=== PATIENT | female | born 1950 | race Caucasian/White ===

== ENCOUNTER 2021-06-15 11:49 | Inpatient (IN) ==
[2021-06-15] MEDS ORDERED: LACTATED RINGERS 1,000 ML IV ONE (12:03)
--- NOTE | 2021-06-15 12:08 | Emergency Department Note ---
Altered Mental Status HPI General Chief Complaint: Altered Mental Status Stated Complaint: alt. mental status Time Seen by Provider: 06/15/21 11:52 Source: patient Mode of arrival: wheelchair Limitations: no limitations History of Present Illness HPI Narrative: Narrative: This is a 71-year-old female who presents emergency department with her daughter who is concerned of altered mental status. Daughter reports that the episodes like this is happened before and that was on April 07, 2021 where she had a negative work-up except for elevated ammonia at that time. Patient is unable to get any history. Daughter reports that she is not alert or oriented. She is unable to know her daughter is in the room and she does not know where she is at. Her last known well was last night before bed. Daughter also reports that these episodes seem to exacerbate when she travels. She recently traveled back up from the [facility] [place] the [place]. Daughter denies any history of recent fevers, vomiting or diarrhea, or history of falls. Related Data Home Medications Medication Instructions Recorded Confirmed pantoprazole 20 mg tablet,delayed 20 mg PO BID tab 11/14/19 06/15/21 release polyethylene glycol 3350 17 17 g PO BID g 05/06/21 06/15/21 gram/dose oral powder (Miralax) rifaximin 550 mg tablet 550 mg PO BID tab 05/06/21 06/15/21 spironolactone 100 mg tablet 100 mg PO QDAY tab 05/06/21 06/15/21 (Aldactone) torsemide 20 mg tablet 20 mg PO QDAY tab 05/06/21 06/15/21 Previous Rx's Medication Instructions Recorded ondansetron 4 mg disintegrating 4 mg PO Q8H PRN #7 tab 03/12/21 tablet Allergies Allergy/AdvReac Type Severity Reaction Status Date / Time hydrocodone AdvReac Severe Nausea Verified 06/15/21 15:53 hydrochlorothiazide AdvReac Intermediate hyponatremi Verified 06/15/21 15:53 a Hydroxychloroquine AdvReac Mild Nausea Verified 06/15/21 15:53 [From Plaquenil] Review of Systems ROS ROS Narrative: Narrative: All systems ED: reviewed and negative except as stated. [facility] Narrative Patient History Narrative: Narrative: Medical/Surgical/Family History All Active Problems (Updated 06/15/21 @ 19:22 by Grady Choe PA-C) Acute hepatic encephalopathy (Acute) Anemia, normocytic normochromic (Acute) Other secondary thrombocytopenia (Acute) Hepatic encephalopathy (Acute) Delirium (Acute) Stage 1 acute kidney injury (Acute) Abdominal pain, RUQ (Chronic) Ascites (Chronic) Cirrhosis of liver (Chronic) Connective tissue disease (Chronic) Elevated serum glutamic pyruvic transaminase (SGPT) level (Chronic) Esophageal varices (Chronic 09/26/13) Gastroesophageal reflux (Chronic) Hernia, hiatal (Chronic) Hypertension, essential, benign (Chronic) Hypothyroidism (Chronic) Osteoarthritis (Chronic) Polyarthropathy, inflammatory (Chronic) Portal hypertension (Chronic) Sjogren's syndrome (Chronic) Splenomegaly (Chronic) Thyroid nodule (Chronic) Vertigo (Chronic) Portal vein thrombosis (Chronic) Urinary tract infection (Chronic) Systemic lupus erythematosus (Chronic) Iron deficiency anemia (Chronic) Edema (Chronic) Insomnia (Chronic) Dysphagia (Chronic) Colonic adenoma (Chronic) Osteoporosis (Chronic) Hemolytic anemia (Chronic) Lower back pain (Chronic) Fatigue (Chronic) Parotid swelling (Chronic) Back pain (Chronic) Sicca syndrome (Chronic) Acquired pancytopenia (Chronic) Hemorrhoid (Chronic) Adenomatous colon polyp (Chronic ~2008) IBS (irritable bowel syndrome) (Chronic) Chronic kidney disease (CKD) stage G3a/A1, moderately decreased glomerular filtration rate (GFR) between 45-59 mL/min/1.73 square meter and albuminuria creatinine ratio less than 30 mg/g (Chronic) Vitamin D deficiency (Chronic) Anemia (Chronic) Confusion (Acute) Medical History Abdominal bloating Abdominal pain, RUQ Acquired pancytopenia Adenomatous colon polyp (~2008) Anemia Ascites H/O (12/11/2014-Karen) Back pain Blood in stool Melenotic Stool (05/08/14-Dr Jones) Body mass index (BMI) 35 or more 37.3 Breast cancer Status post right partial mastectomies, radiation, hormonal therapy Bronchitis (09/25/14) Chronic kidney disease (CKD) stage G3a/A1, moderately decreased glomerular filtration rate (GFR) between 45-59 mL/min/1.73 square meter and albuminuria creatinine ratio less than 30 mg/g Cirrhosis of liver ? autoimmune etiology Colonic adenoma 2008 Confusion Conjunctivitis (09/25/14) OD Conjunctivitis Connective tissue disease Cough Dehydration Dry eyes Dry mouth Dysphagia Edema Elevated liver enzymes Mild Elevated serum glutamic pyruvic transaminase (SGPT) level Encounter for long-term (current) use of high-risk medication Epistaxis Esophageal varices (09/26/13) Esophagitis, reflux Fatigue Gastric erosion (05/27/14-Dr Jones) Gastric polyps Bleeding gastric polyps found on EGD in August 2019 We have not received the pathology report We will request those records Gastritis and gastroduodenitis Gastroesophageal reflux Hand pain Hemolysis Hemolytic anemia Dr. Mendoza, but it looks like she has not seen him for at least a year. We will monitor CBC for stability. Hemorrhoid Hepatic fibrosis Hernia, hiatal History of colonic polyps 2008 ademona History of mammogram (01/25/16) Hypertension, essential, benign Hyponatremia Hypothyroidism IBS (irritable bowel syndrome) Insomnia Iron deficiency anemia Joint pain Leukopenia Lightheaded Hgb 9.6 (12.3) Localized edema due to fluid overload FPC use of drug Benlysta Lower back pain Medication side effect lower extremity edema likely secondary to amlodipine Nasal discharge Daily bloody nasal discharge Nausea & vomiting Night sweats intermittently past 6 months Osteoarthritis Osteoporosis not treated, can't take Fosamax d/t esophageal varices Pancytopenia H/O Parotid swelling Pathological fracture, right humerus, sequela PND (post-nasal drip) Bloody Polyarthropathy, inflammatory Portal hypertension H/o Portal vein thrombosis Resolved and off of Lovenox Reactive airway disease (09/25/14) Rectal bleeding Renal failure Seborrheic keratoses Sutures are removed Sicca syndrome Sicca syndrome with keratoconjunctivitis Sjogren's syndrome Skin lesion Left forearm measuring 5 x 6 mm by calipers. Excised. Splenomegaly Stricture of right ureter right. UVJ. Systemic lupus erythematosus Thrombocytopenia Thyroid nodule 2007 Stable and benign Upper GI bleed Secondary to gastritis UTI (urinary tract infection) Vertigo BPPV Vitamin D deficiency Wrist pain Left Surgical History Fracture, humerus 05/08/15 ORIF History of biopsy (01/23/14) Liver History of X3 History of carpal tunnel release X2 History of cholecystectomy (01/27/14) History of colonoscopy (02/15/17) 01/03/13 - Uncomplicated internal hemorrhoids, few diverticuli. 10/12/15 - hemorrhoids. Dr. Jones. 02/15/17 - Hemorrhoids-7 year follow up. History of endoscopy Variceal Banding Multiple times by Dr. Orozco. History of esophagogastroduodenoscopy (01/06/17) 09/11/19 - Dr. Sunny Story 10/02/14 - Dr. Jones 06/04/15 Dr Jones - esophageal varices were banded. Gastritis. Gastric ulcer. Yeast. 09/04/15 Dr Jones - varices. H. pylori. Gastritis. 01/06/17-Dr. Jones - varices. gastritis. One year F/U. 01/03/18-Dr Jones-gastritis, scarring, small varices, possible esophageal dysmotility. 05/24/18-Dr Jones-upper GI bleed secondary to gastritis. Esophageal varices. Esophagitis. History of hysterectomy MARIA DOLORES/BSO History of knee surgery X5 History of liver biopsy (01/27/14) History of lumpectomy of right breast 2005 And sentinel node biopsy followed by radiation. History of partial mastectomy (~2005) History of right breast biopsy 03/2006 History of surgery Gastric Varices 01/2014, 02/2014, 03/2014, 04/17 Dr. Jones History of thyroid surgery tumor removal History of thyroidectomy (~1979) Status post cataract extraction of both eyes with insertion of intraocular lens Remote Family History Mother Chronic Kidney Disease Unknown Diabetes mellitus Motor vehicle accident Father Family history of arthritis Cardiac disease Essential hypertension Malignant neoplasm Lung cancer Heart disease Type 2 diabetes mellitus Sister Cardiac disease Rheumatic fever Brother Rheumatic fever Cerebrovascular accident Prostate cancer Family/Other Family history of arthritis Rheumatoid arthritis Social History Smoking Status: Never smoker Alcohol Intake Frequency: does not drink Substance Use: does not use Exam Narrative Narrative: Narrative: General Limitations: no limitations General appearance: Present in no apparent distress and other (Patient is somnolent but is arousable. She is able to take a deep breaths and when I asked her to but otherwise does not follow directions very well. ) Head Head: Present atraumatic and normocephalic Respiratory Respiratory: Present normal lung sounds bilaterally and other (No rhonchi rales or wheezes) Cardiovascular Cardiovascular: Present regular rate, normal rhythm and normal heart sounds Adbominal Abdominal: Present other (Abdomen is soft, nontender. There is no rebound tenderness no guarding. Nondistended.) Extremities Extremities: Present other (Negative Homans' sign bilaterally. No calf edema or overlying erythema or ecchymosis) Neurological Neurological: Present alert and other (Patient is not alert and oriented. She does not answer any questions either.) Skin Skin: Present warm (WNL), dry and normal color Course Vital Signs Vital signs: Vital Signs Temperature 98.0 F 06/15/21 11:50 Pulse Rate 77 06/15/21 11:50 Respiratory Rate 18 06/15/21 11:50 Blood Pressure 124/56 06/15/21 11:50 Pulse Oximetry (%) 100 06/15/21 11:50 Temperature 98.0 F 06/15/21 15:54 Pulse Rate 75 06/15/21 18:00 Respiratory Rate 18 06/15/21 18:00 Blood Pressure 144/60 06/15/21 18:00 Pulse Oximetry (%) 100 06/15/21 19:10 [facility] MDM Narrative Medical decision making narrative: Narrative: CBC CMP Troponin proBNP Lactic acid 1.4 Venous blood gas respiratory alkalosis Ammonia 142 CT of the brain without contrast negative for acute normality Portable chest x-ray no acute infiltrates on my read EKG normal sinus rhythm Procalcitonin normal Magnesium Lactated Ringer's started Labs are reviewed and mild bump in bilirubin but her main problem is her ammonia causing acute hepatic encephalopathy other labs reviewed unremarkable Patient will be admitted for further evaluation and treatment. I spoke with the hospitalist who agreed admit the patient for further evaluation and treatment. Lab Data Result diagrams: 06/15/21 12:10 06/15/21 16:13 Labs: Lab Results 06/15/21 06/15/21 06/15/21 Range/Units 12:10 12:10 12:10 WBC 3.3 L (4.5-11.0) K/mcL RBC 3.27 L (3.59-5.38) M/mcL Hgb 10.0 L (11.2-15.7) g/dL Hct 29.9 L (34.1-44.9) % MCV 91.4 (80.0-100.0) fL MCH 30.6 (26.0-34.0) pg MCHC 33.4 (31.0-36.0) g/dL RDW 19.0 H (11.5-14.5) % Plt Count 61 L (140-440) K/mcL MPV 10.5 H (7.4-10.4) fL Neut % (Auto) 71.3 (38.0-78.0) % Lymph % (Auto) 13.9 L (15.5-49.0) % [place] % (Auto) 12.1 H (1.0-12.0) % Eos % (Auto) 1.8 (0.0-7.0) % Baso % (Auto) 0.9 (0.0-2.0) % Lymph # (Auto) 0.46 L (1.50-4.80) K/mcL [place] # (Auto) 0.40 (0.10-0.90) K/mcL Eos # (Auto) 0.06 (0.00-0.70) K/mcL Baso # (Auto) 0.03 (0.00-0.30) K/mcL Absolute Neutrophils 2.35 (1.80-8.00) K/mcL Sodium 138 (133-145) mmol/L Potassium 4.3 (3.3-5.1) mmol/L Chloride 108 (96-108) mmol/L Carbon Dioxide 17 L (22-30) mmol/L Anion Gap 13.0 (8.0-16.0) BUN 20 (8-23) mg/dL Creatinine 1.5 H (0.6-1.1) mg/dL GFR Calculation 35 Glucose 148 H (70-105) mg/dL Calcium 8.4 L (8.6-10.4) mg/dL Magnesium 2.6 H (1.6-2.5) mg/dL Total Bilirubin 1.7 H (0.1-1.0) mg/dL AST 39 H (<32) U/L ALT 20 (<40) U/L Alkaline Phosphatase 134 H (39-117) U/L Ammonia 142 H (11-51) umol/L Troponin T (<0.03) ng/mL Total Protein 6.3 (5.9-8.4) gm/dL Albumin 2.9 L (3.2-5.2) gm/dL Globulin 3.4 (2.2-3.7) gm/dL Albumin/Globulin Ratio 0.9 L (1.0-2.3) Procalcitonin (<0.10) ng/mL 06/15/21 06/15/21 Range/Units 12:10 12:10 WBC (4.5-11.0) K/mcL RBC (3.59-5.38) M/mcL Hgb (11.2-15.7) g/dL Hct (34.1-44.9) % MCV (80.0-100.0) fL MCH (26.0-34.0) pg MCHC (31.0-36.0) g/dL RDW (11.5-14.5) % Plt Count (140-440) K/mcL MPV (7.4-10.4) fL Neut % (Auto) (38.0-78.0) % Lymph % (Auto) (15.5-49.0) % [place] % (Auto) (1.0-12.0) % Eos % (Auto) (0.0-7.0) % Baso % (Auto) (0.0-2.0) % Lymph # (Auto) (1.50-4.80) K/mcL [place] # (Auto) (0.10-0.90) K/mcL Eos # (Auto) (0.00-0.70) K/mcL Baso # (Auto) (0.00-0.30) K/mcL Absolute Neutrophils (1.80-8.00) K/mcL Sodium (133-145) mmol/L Potassium (3.3-5.1) mmol/L Chloride (96-108) mmol/L Carbon Dioxide (22-30) mmol/L Anion Gap (8.0-16.0) BUN (8-23) mg/dL Creatinine (0.6-1.1) mg/dL GFR Calculation Glucose (70-105) mg/dL Calcium (8.6-10.4) mg/dL Magnesium (1.6-2.5) mg/dL Total Bilirubin (0.1-1.0) mg/dL AST (<32) U/L ALT (<40) U/L Alkaline Phosphatase (39-117) U/L Ammonia (11-51) umol/L Troponin T < 0.01 (<0.03) ng/mL Total Protein (5.9-8.4) gm/dL Albumin (3.2-5.2) gm/dL Globulin (2.2-3.7) gm/dL Albumin/Globulin Ratio (1.0-2.3) Procalcitonin 0.21 H (<0.10) ng/mL ED POC Tests ED POC Tests: BHUPENDRA - Influenza A Negative BHUPENDRA - Influenza B Negative BHUPENDRA - SARS Antigen Positive EKG Data EKG #1: EKG results narrative: ECG shows normal sinus rhythm, normal axis, normal NE interval narrow QRS normal QTC. There is no signs of Brugada, [id number] or HOCM. There is no dagger Q waves. There is no ST segment deviation or hyperacute T waves. My interpretation is normal sinus rhythm. Discharge Plan Patient/Caregiver Discharge Instructions Pt seen by MOLDER SWEEP/PA only: Yes Clinical Impression: Acute hepatic encephalopathy Patient Disposition: Xfer As Inpt ([facility]) Discharge Date/Time: 06/15/21 15:24
--- NOTE | 2021-06-15 12:57 | Cat Scan Report ---
INDICATION: AMS COMPARISON: Previous brain CT scan dated 04/07/2021 TECHNIQUE: Axial noncontrast-enhanced images through the brain. Sagittally and coronally reformatted images. FINDINGS: Cerebral hemispheres:Negative. No intra-axial abnormality. No intra-axial hematoma. No localized mass effect.Brain volume is within normal limits for age. Periventricular white matter is negative without significant attenuation abnormality. Brainstem and cerebellum:No intra-axial abnormality Extra-axial:No acute hemorrhage. No subdural or epidural hematoma. No subarachnoid hemorrhage. Basilar cisterns are normal Calvarial:No calvarial fracture. No lytic lesion Temporal bones are negative. No destructive lesions Soft tissue, orbits, sinuses:Orbits and visualized facial soft tissues and paranasal sinuses are negative IMPRESSION: 1. Negative noncontrast enhanced brain CT scan 2. No significant interval change since 04/07/2021 The exam was performed using radiation dose optimization techniques including, but not limited to, automated exposure control, adjustment of the mA and/or kV according to patient size and use of iterative reconstruction technique. Interpreted and Authenticated by: Abdifatah Downs 06/15/21
--- NOTE | 2021-06-15 13:01 | XRay Report ---
INDICATION: AMS TECHNIQUE: AP portable semiupright chest x-ray COMPARISON: Previous chest x-rays dated 04/07/2021, 11/12/2019, 12/27/2018 FINDINGS: Lungs:Lungs are negative. No focal pulmonary parenchymal infiltrate or mass Heart, vascular:No significant cardiomegaly. Pulmonary vascularity is normal. No pulmonary edema or pulmonary congestion Mediastinum, griselda:No mediastinal widening. No hilar mass Pleura:Mildly elevated right hemidiaphragm, unchanged. No evidence for pleural effusion. Skeletal:There are surgical clips in the left upper chest and right axilla. Patient has undergone previous plate and screw fixation for proximal right humeral fracture. IMPRESSION: 1. Elevated right hemidiaphragm, unchanged 2. No acute abnormality. No interval change Interpreted and Authenticated by: Abdifatah Downs 06/15/21
[2021-06-15 13:13] LABS: Basophils # (Auto) 0.03 K/mcL (0.00-0.30); Basophils % (Auto) 0.9 % (0.0-2.0); Eosinophils # (Auto) 0.06 K/mcL (0.00-0.70); Eosinophils % (Auto) 1.8 % (0.0-7.0); Hematocrit 29.9 % (34.1-44.9); Lymphocytes # (Auto) 0.46 K/mcL (1.50-4.80); Lymphocytes % (Auto) 13.9 % (15.5-49.0); Mean Cell Volume 91.4 fL (80.0-100.0); Mean Corpuscular HGB Conc 33.4 g/dL (31.0-36.0); Mean Platelet Volume 10.5 fL (7.4-10.4); Monocytes % (Auto) 12.1 % (1.0-12.0); Neutrophils % (Auto) 71.3 % (38.0-78.0); Platelet Count 61 K/mcL (140-440); RBC 3.27 M/mcL (3.59-5.38); WBC 3.3 K/mcL (4.5-11.0)
[2021-06-15 13:32] LABS: ALT/SGPT 20 U/L (<40); AST/SGOT 39 U/L (<32); Albumin 2.9 gm/dL (3.2-5.2); Albumin/Globulin Ratio 0.9 (1.0-2.3); Alkaline Phosphatase 134 U/L (39-117); Bilirubin,Total 1.7 mg/dL (0.1-1.0); Blood Urea Nitrogen 20 mg/dL (8-23); Calcium 8.4 mg/dL (8.6-10.4); Carbon Dioxide 17 mmol/L (22-30); Chloride 108 mmol/L (96-108); Globulin 3.4 gm/dL (2.2-3.7); Glomerular Filtration Rate 35; Glucose 148 mg/dL (70-105)
--- NOTE | 2021-06-15 14:40 | Internal Med History&Physical ---
HPI History of Present Illness Patient information: Note initiated : 06/15/21 at 2:35 pm Service Date, if different from initiated Date: [] Patient: Addis Plascencia 71 y/o F admitted on for alt. mental status. Chief Complaint: [altered mental status] Chief complaint: altered mental status History of present illness: Ms. Plascencia is a 71 year old F history of SLE, cirrhosis (COKER) with hepatic encephalopathy, CoVID pneumonia in 2019, p/w one day history of acute onset altered mental status. She had an episode of hepatic encephalopathy 2 months ago, when she was being prescribed with Lactulose. She only took it for a few days before stopping it due to diarrhea. Was last seen normal yesterday night when she went to bed. This morning when she woke up from bed, she appeared to be mentally confused, barely staying alert, unable to recognize family, and able to carry out any conversations, and unable to follow any verbal commands. Patient was being brought to our ED for further evaluations. Vital signs at ED presentations were completely within normal limits and her oxygen saturation was 100% on room air. Labs significant for leukopenia with WBC 3.3. Serum ammonia level 142. Lactic acid 1.2. Procalcitonin level 0.21. [place] positive. Prescott results pendings. CT head w/o contract no signs of acute intra-cranial pathologies. CXR no acute intra-thoracic pathologies. Review of Systems ROS unobtainable: due to mental status PFSH PFSH All Active Problems (Updated 06/15/21 @ 14:53 by Tristian Borjas MD) Anemia, normocytic normochromic (Acute) Other secondary thrombocytopenia (Acute) Hepatic encephalopathy (Acute) Delirium (Acute) Stage 1 acute kidney injury (Acute) Abdominal pain, RUQ (Chronic) Ascites (Chronic) Cirrhosis of liver (Chronic) Connective tissue disease (Chronic) Elevated serum glutamic pyruvic transaminase (SGPT) level (Chronic) Esophageal varices (Chronic 09/26/13) Gastroesophageal reflux (Chronic) Hernia, hiatal (Chronic) Hypertension, essential, benign (Chronic) Hypothyroidism (Chronic) Osteoarthritis (Chronic) Polyarthropathy, inflammatory (Chronic) Portal hypertension (Chronic) Sjogren's syndrome (Chronic) Splenomegaly (Chronic) Thyroid nodule (Chronic) Vertigo (Chronic) Portal vein thrombosis (Chronic) Urinary tract infection (Chronic) Systemic lupus erythematosus (Chronic) Iron deficiency anemia (Chronic) Edema (Chronic) Insomnia (Chronic) Dysphagia (Chronic) Colonic adenoma (Chronic) Osteoporosis (Chronic) Hemolytic anemia (Chronic) Lower back pain (Chronic) Fatigue (Chronic) Parotid swelling (Chronic) Back pain (Chronic) Sicca syndrome (Chronic) Acquired pancytopenia (Chronic) Hemorrhoid (Chronic) Adenomatous colon polyp (Chronic ~2008) IBS (irritable bowel syndrome) (Chronic) Chronic kidney disease (CKD) stage G3a/A1, moderately decreased glomerular filtration rate (GFR) between 45-59 mL/min/1.73 square meter and albuminuria creatinine ratio less than 30 mg/g (Chronic) Vitamin D deficiency (Chronic) Anemia (Chronic) Confusion (Acute) Medical History Abdominal bloating Abdominal pain, RUQ Acquired pancytopenia Adenomatous colon polyp (~2008) Anemia Ascites H/O (12/11/2014-Karen) Back pain Blood in stool Melenotic Stool (05/08/14-Dr Jones) Body mass index (BMI) 35 or more 37.3 Breast cancer Status post right partial mastectomies, radiation, hormonal therapy Bronchitis (09/25/14) Chronic kidney disease (CKD) stage G3a/A1, moderately decreased glomerular filtration rate (GFR) between 45-59 mL/min/1.73 square meter and albuminuria creatinine ratio less than 30 mg/g Cirrhosis of liver ? autoimmune etiology Colonic adenoma 2008 Confusion Conjunctivitis (09/25/14) OD Conjunctivitis Connective tissue disease Cough Dehydration Dry eyes Dry mouth Dysphagia Edema Elevated liver enzymes Mild Elevated serum glutamic pyruvic transaminase (SGPT) level Encounter for long-term (current) use of high-risk medication Epistaxis Esophageal varices (09/26/13) Esophagitis, reflux Fatigue Gastric erosion (05/27/14-Dr Jones) Gastric polyps Bleeding gastric polyps found on EGD in August 2019 We have not received the pathology report We will request those records Gastritis and gastroduodenitis Gastroesophageal reflux Hand pain Hemolysis Hemolytic anemia Dr. Mendoza, but it looks like she has not seen him for at least a year. We will monitor CBC for stability. Hemorrhoid Hepatic fibrosis Hernia, hiatal History of colonic polyps 2008 ademona History of mammogram (01/25/16) Hypertension, essential, benign Hyponatremia Hypothyroidism IBS (irritable bowel syndrome) Insomnia Iron deficiency anemia Joint pain Leukopenia Lightheaded Hgb 9.6 (12.3) Localized edema due to fluid overload skilled nursing use of drug Benlysta Lower back pain Medication side effect lower extremity edema likely secondary to amlodipine Nasal discharge Daily bloody nasal discharge Nausea & vomiting Night sweats intermittently past 6 months Osteoarthritis Osteoporosis not treated, can't take Fosamax d/t esophageal varices Pancytopenia H/O Parotid swelling Pathological fracture, right humerus, sequela PND (post-nasal drip) Bloody Polyarthropathy, inflammatory Portal hypertension H/o Portal vein thrombosis Resolved and off of Lovenox Reactive airway disease (09/25/14) Rectal bleeding Renal failure Seborrheic keratoses Sutures are removed Sicca syndrome Sicca syndrome with keratoconjunctivitis Sjogren's syndrome Skin lesion Left forearm measuring 5 x 6 mm by calipers. Excised. Splenomegaly Stricture of right ureter right. UVJ. Systemic lupus erythematosus Thrombocytopenia Thyroid nodule 2007 Stable and benign Upper GI bleed Secondary to gastritis UTI (urinary tract infection) Vertigo BPPV Vitamin D deficiency Wrist pain Left Surgical History Fracture, humerus 05/08/15 [facility] History of biopsy (01/23/14) Liver History of X3 History of carpal tunnel release X2 History of cholecystectomy (01/27/14) History of colonoscopy (02/15/17) 01/03/13 - Uncomplicated internal hemorrhoids, few diverticuli. 10/12/15 - hemorrhoids. Dr. Jones. 02/15/17 - Hemorrhoids-7 year follow up. History of endoscopy Variceal Banding Multiple times by Dr. Orozco. History of esophagogastroduodenoscopy (01/06/17) 09/11/19 - Dr. Sunny Story 10/02/14 - Dr. Jones 06/04/15 Dr Jones - esophageal varices were banded. Gastritis. Gastric ulcer. Yeast. 09/04/15 Dr Jones - varices. H. pylori. Gastritis. 01/06/17-Dr. Jones - varices. gastritis. One year F/U. 01/03/18-Dr Dettwiler-gastritis, scarring, small varices, possible esophageal dysmotility. 05/24/18-Dr Jones-upper GI bleed secondary to gastritis. Esophageal varices. Esophagitis. History of hysterectomy MARIA DOLORES/BSO History of knee surgery X5 History of liver biopsy (01/27/14) History of lumpectomy of right breast 2005 And sentinel node biopsy followed by radiation. History of partial mastectomy (~2005) History of right breast biopsy 03/2006 History of surgery Gastric Varices 01/2014, 02/2014, 03/2014, 04/17 Dr. Jones History of thyroid surgery tumor removal History of thyroidectomy (~1979) Status post cataract extraction of both eyes with insertion of intraocular lens Remote Family History Mother Chronic Kidney Disease Unknown Diabetes mellitus Motor vehicle accident Father Family history of arthritis Cardiac disease Essential hypertension Malignant neoplasm Lung cancer Heart disease Type 2 diabetes mellitus Sister Cardiac disease Rheumatic fever Brother Rheumatic fever Cerebrovascular accident Prostate cancer Family/Other Family history of arthritis Rheumatoid arthritis Social History household members: spouse housing: house lives independently: Yes marital status: education level: college 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 other: 3 children well-balanced diet: daily or most days physical activity: walking frequency: 3-4 times per week smoking status: Never smoker alcohol intake frequency: does not drink substance use type: does not use MEDS/ALLERGIES Home Medications and Allergies Home Medications Medication Instructions Recorded Confirmed Type pantoprazole 20 mg tablet,delayed 20 mg PO BID tab 11/14/19 06/15/21 History release ondansetron 4 mg disintegrating 4 mg PO Q8H PRN #7 tab 03/12/21 06/15/21 Rx tablet polyethylene glycol 3350 17 17 g PO QDAY PRN g 05/06/21 05/06/21 History gram/dose oral powder (Miralax) rifaximin 550 mg tablet 550 mg PO BID tab 05/06/21 06/15/21 History spironolactone 100 mg tablet 100 mg PO QDAY tab 05/06/21 06/15/21 History (Aldactone) torsemide 20 mg tablet 20 mg PO QDAY tab 05/06/21 06/15/21 History Allergies Allergy/AdvReac Type Severity Reaction Status Date / Time hydrocodone AdvReac Severe Nausea Verified 06/15/21 11:54 hydrochlorothiazide AdvReac Intermediate hyponatremi Verified 06/15/21 11:54 a Hydroxychloroquine AdvReac Mild Nausea Verified 05/06/21 13:54 [From Plaquenil] EXAM Constitutional Vitals: Temp Pulse Resp BP Pulse Ox 36.7 C 72 13 121/57 100 06/15/21 11:50 06/15/21 14:31 06/15/21 14:31 06/15/21 14:31 06/15/21 14:31 Exam: Lethargic Head Head exam: Present atraumatic and normocephalic Eye Eye exam: Present EOMI and PERRL ENT ENT exam: Present mucous membranes moist, normal exam and normal external ear exam Neck Neck exam: Present normal inspection; Absent lymphadenopathy, tenderness or thyromegaly Respiratory Respiratory exam: Absent accessory muscle use, respiratory distress or wheezes Cardiovascular Cardiovascular exam: Present normal rate and rhythm; Absent JVD GI/Abdominal GI/Abdominal exam: Present normal bowel sounds and soft; Absent organomegaly or tenderness Extremities Exam Extremities exam: Present full ROM, normal capillary refill and normal inspection; Absent tenderness Neurological Exam Neurological exam: Present altered; Absent alert, motor sensory deficit or oriented X3 Additional comments: lethargic Skin Skin exam: Present dry and intact DATA Data Completed and Pending Labs: Labs from last 24 hours 06/15/21 06/15/21 06/15/21 12:10 12:10 12:10 WBC RBC Hgb Hct MCV MCH MCHC RDW Plt Count MPV Neut % (Auto) Lymph % (Auto) [place] % (Auto) Eos % (Auto) Baso % (Auto) Lymph # (Auto) [place] # (Auto) Eos # (Auto) Baso # (Auto) Absolute Neutrophils Sodium Potassium Chloride Carbon Dioxide Anion Gap BUN Creatinine GFR Calculation Glucose Calcium Magnesium Total Bilirubin AST ALT Alkaline Phosphatase Ammonia 142 H Troponin T < 0.01 Total Protein Albumin Globulin Albumin/Globulin Ratio Procalcitonin 0.21 H 06/15/21 06/15/21 12:10 12:10 WBC 3.3 L RBC 3.27 L Hgb 10.0 L Hct 29.9 L MCV 91.4 MCH 30.6 MCHC 33.4 RDW 19.0 H Plt Count 61 L MPV 10.5 H Neut % (Auto) 71.3 Lymph % (Auto) 13.9 L [place] % (Auto) 12.1 H Eos % (Auto) 1.8 Baso % (Auto) 0.9 Lymph # (Auto) 0.46 L [place] # (Auto) 0.40 Eos # (Auto) 0.06 Baso # (Auto) 0.03 Absolute Neutrophils 2.35 Sodium 138 Potassium 4.3 Chloride 108 Carbon Dioxide 17 L Anion Gap 13.0 BUN 20 Creatinine 1.5 H GFR Calculation 35 Glucose 148 H Calcium 8.4 L Magnesium 2.6 H Total Bilirubin 1.7 H AST 39 H ALT 20 Alkaline Phosphatase 134 H Ammonia Troponin T Total Protein 6.3 Albumin 2.9 L Globulin 3.4 Albumin/Globulin Ratio 0.9 L Procalcitonin A/P Assessment and plan (1) Chronic kidney disease (CKD) stage G3a/A1, moderately decreased glomerular filtration rate (GFR) between 45-59 mL/min/1.73 square meter and albuminuria creatinine ratio less than 30 mg/g: Status: Chronic (2) Stage 1 acute kidney injury: Status: Acute (3) Delirium: Status: Acute (4) Hepatic encephalopathy: Status: Acute (5) Ascites: Status: Chronic Comment: H/O (12/11/2014-Karen) Qualifiers: Ascites type: other type Qualified Code(s): R18.8 - Other ascites (6) Other secondary thrombocytopenia: Status: Acute (7) Anemia, normocytic normochromic: Status: Acute Narrative A/P Narrative: Assessment and Plans: 1. Delirium due to hepatic encephalopathy: DDx: CoVID delirium vs acute ischemic stroke vs other bacterial infection such as UTI Admit to inpatient PCU Prescott test results pending UA with reflexive urine culture if indicated cbc w/ auto diff in the morning to trend WBC CMP in the morning to trend LFTs Ammonia level NPO until nurse bedside swallowing evaluation Physical therapy Occupational therapy Speech therapy Lactulose 20gm PO BID, VT if cannot tolerate oral initially Rifaximin Aldactone Repeat head CT w/o in the morning to rule out acute ischemic stroke 2. Thrombocytopenia: cbc w/ auto diff in the morning to trend plt, transfuse plt if level <15 3. Anemia, normocytic normochromic: cbc w/ auto diff in the morning to trend H/H; transfuse pRBC if hemoglobin <7.0, active bleeding, or symptomatic 4. Stage 1 acute kidney injury in the context of chronic kidney disease stage 3A: Avoid nephrotoxic agents NS@100cc/hr CMP in the morning to trend kidney functions GI ppx: Protonix IV DVT ppx: SCDs Code status: Full Prognosis: guarded Disposition: inpatient PCU Time Spent With Patient Time: Total time spent is greater than 50% in coordination of care (as documented) at patient's floor/unit and/or counseling patient: Total time spent with greater than 50% in coordination of care (as documented) at patient's floor/unit and/or counseling patient:: Greater than 35 minutes
[2021-06-15] MEDS ORDERED: IPRATROPIUM/ALBUTEROL 3 ML AMPUL.NEB NEB PRN (15:35)
[2021-06-15] MEDS ORDERED: ACETAMINOPHEN 325 MG TABLET PO PRN (15:35)
[2021-06-15] MEDS: 0.9 % SODIUM CHLORIDE 1,000 ML IV SCH (15:55)
[2021-06-15] MEDS: LACTULOSE 20 GM/30 ML ORAL.SOL PO SCH ×2 (15:56→20:16)
[2021-06-15 17:02] LABS: ALT/SGPT 19 U/L (<40); AST/SGOT 36 U/L (<32); Alkaline Phosphatase 124 U/L (39-117); Bilirubin,Total 1.4 mg/dL (0.1-1.0); Blood Urea Nitrogen 22 mg/dL (8-23); Calcium 8.5 mg/dL (8.6-10.4); Carbon Dioxide 20 mmol/L (22-30); Chloride 108 mmol/L (96-108); Globulin 3.1 gm/dL (2.2-3.7); Glomerular Filtration Rate 38; Glucose 122 mg/dL (70-105)
--- NOTE | 2021-06-15 19:52 | Internal Medicine Consult Note ---
HPI Data of Consult Patient: known to practice within the last 3 years Consult date: 06/15/21 Primary Care Provider: Brad Rubio MD Consult Narrative Chief complaint: hepatic encephalopathy Reason for consult: hepatic encephalopathy History of present illness: Sandee is a 71 year old decompensated cryptogenic cirrhotic complicated by po rtal hypertension, hepatic encephalopathy, ascites and atrophic gastritis who is known to my practice and was admitted today for hepatic encephalopathy. Her daughter, Isabel, is present at the bedside and provides the history. Sandee traveled here 2 days ago after visiting her in [place]. Her noticed her mental status was subtly off yesterday, but this was imperceptible to her children. However, this morning, she was lethargic and unable to respond verbally so she was brought to the ED where ammonia level was 142 and BHUPENDRA Covid antigen was positive. She has been afebrile without any respiratory symptoms and no known COVID exposures. She has not had any signs of bleeding; she is chronically anemic but Hgb today is 10, which is actually a bit improved. EGD in april showed no esophageal or gastric varices. She is not hypokalemic. She had been complaining of abdominal pain off and on for the last week. She discontinued her lactulose in favor of Xifaxan last month because she was having fecal incontinence of lactulose monotherapy. She also has a history of small intestinal bacterial overgrowth secondary to atrophic gastritis; Xifaxan has been the only treatment trialed for SIBO. Because we follow her as an outpatient, Isabel requested we see the patient while admitted. cc:: CC: Tristian Borjas MD Review of Systems ROS unobtainable: due to mental status PFSH PFSH All Active Problems (Updated 06/15/21 @ 19:22 by Grady Choe PA-C) Acute hepatic encephalopathy (Acute) Anemia, normocytic normochromic (Acute) Other secondary thrombocytopenia (Acute) Hepatic encephalopathy (Acute) Delirium (Acute) Stage 1 acute kidney injury (Acute) Abdominal pain, RUQ (Chronic) Ascites (Chronic) Cirrhosis of liver (Chronic) Connective tissue disease (Chronic) Elevated serum glutamic pyruvic transaminase (SGPT) level (Chronic) Esophageal varices (Chronic 09/26/13) Gastroesophageal reflux (Chronic) Hernia, hiatal (Chronic) Hypertension, essential, benign (Chronic) Hypothyroidism (Chronic) Osteoarthritis (Chronic) Polyarthropathy, inflammatory (Chronic) Portal hypertension (Chronic) Sjogren's syndrome (Chronic) Splenomegaly (Chronic) Thyroid nodule (Chronic) Vertigo (Chronic) Portal vein thrombosis (Chronic) Urinary tract infection (Chronic) Systemic lupus erythematosus (Chronic) Iron deficiency anemia (Chronic) Edema (Chronic) Insomnia (Chronic) Dysphagia (Chronic) Colonic adenoma (Chronic) Osteoporosis (Chronic) Hemolytic anemia (Chronic) Lower back pain (Chronic) Fatigue (Chronic) Parotid swelling (Chronic) Back pain (Chronic) Sicca syndrome (Chronic) Acquired pancytopenia (Chronic) Hemorrhoid (Chronic) Adenomatous colon polyp (Chronic ~2008) IBS (irritable bowel syndrome) (Chronic) Chronic kidney disease (CKD) stage G3a/A1, moderately decreased glomerular celina tration rate (GFR) between 45-59 mL/min/1.73 square meter and albuminuria creatinine ratio less than 30 mg/g (Chronic) Vitamin D deficiency (Chronic) Anemia (Chronic) Confusion (Acute) Medical History Abdominal bloating Abdominal pain, RUQ Acquired pancytopenia Adenomatous colon polyp (~2008) Anemia Ascites H/O (12/11/2014-Karen) Back pain Blood in stool Melenotic Stool (05/08/14-Dr Jones) Body mass index (BMI) 35 or more 37.3 Breast cancer Status post right partial mastectomies, radiation, hormonal therapy Bronchitis (09/25/14) Chronic kidney disease (CKD) stage G3a/A1, moderately decreased glomerular filtration rate (GFR) between 45-59 mL/min/1.73 square meter and albuminuria creatinine ratio less than 30 mg/g Cirrhosis of liver ? autoimmune etiology Colonic adenoma 2008 Confusion Conjunctivitis (09/25/14) OD Conjunctivitis Connective tissue disease Cough Dehydration Dry eyes Dry mouth Dysphagia Edema Elevated liver enzymes Mild Elevated serum glutamic pyruvic transaminase (SGPT) level Encounter for long-term (current) use of high-risk medication Epistaxis Esophageal varices (09/26/13) Esophagitis, reflux Fatigue Gastric erosion (05/27/14-Dr Jones) Gastric polyps Bleeding gastric polyps found on EGD in August 2019 We have not received the pathology report We will request those records Gastritis and gastroduodenitis Gastroesophageal reflux Hand pain Hemolysis Hemolytic anemia Dr. Mendoza, but it looks like she has not seen him for at least a year. We will monitor CBC for stability. Hemorrhoid Hepatic fibrosis Hernia, hiatal History of colonic polyps 2009 ad[place]ona History of mammogram (01/25/16) Hypertension, essential, benign Hyponatremia Hypothyroidism IBS (irritable bowel syndrome) Insomnia Iron deficiency anemia Joint pain Leukopenia Lightheaded Hgb 9.6 (12.3) Localized edema due to fluid overload [facility] use of drug Benlysta Lower back pain Medication side effect lower extremity edema likely secondary to amlodipine Nasal discharge Daily bloody nasal discharge Nausea & vomiting Night sweats intermittently past 6 months Osteoarthritis Osteoporosis not treated, can't take Fosamax d/t esophageal varices Pancytopenia H/O Parotid swelling Pathological fracture, right humerus, sequela PND (post-nasal drip) Bloody Polyarthropathy, inflammatory Portal hypertension H/o Portal vein thrombosis Resolved and off of Lovenox Reactive airway disease (09/25/14) Rectal bleeding Renal failure Seborrheic keratoses Sutures are removed Sicca syndrome Sicca syndrome with keratoconjunctivitis Sjogren's syndrome Skin lesion Left forearm measuring 5 x 6 mm by calipers. Excised. Splenomegaly Stricture of right ureter right. UVJ. Systemic lupus erythematosus Thrombocytopenia Thyroid nodule 2007 Stable and benign Upper GI bleed Secondary to gastritis UTI (urinary tract infection) Vertigo BPPV Vitamin D deficiency Wrist pain Left Surgical History Fracture, humerus 05/08/15 OR[facility] History of biopsy (01/23/14) Liver History of X3 History of carpal tunnel release X2 History of cholecystectomy (01/27/14) History of colonoscopy (02/15/17) 01/03/13 - Uncomplicated internal hemorrhoids, few diverticuli. 10/12/15 - hemorrhoids. Dr. Jones. 02/15/17 - Hemorrhoids-7 year follow up. History of endoscopy Variceal Banding Multiple times by Dr. Orozco. History of esophagogastroduodenoscopy (01/06/17) 09/11/19 - Dr. Sunny Story 10/02/14 - Dr. Jones 06/04/15 Dr Jones - esophageal varices were banded. Gastritis. Gastric ulcer. Yeast. 09/04/15 Dr Jones - varices. H. pylori. Gastritis. 01/06/17-Dr. Jones - varices. gastritis. One year F/U. 01/03/18-Dr Jones-gastritis, scarring, small varices, possible esophageal dysmotility. 05/24/18-Dr Jones-upper GI bleed secondary to gastritis. Esophageal varices. Esophagitis. History of hysterectomy MARIA DOLORES/BSO History of knee surgery X5 History of liver biopsy (01/27/14) History of lumpectomy of right breast 2005 And sentinel node biopsy followed by radiation. History of partial mastectomy (~2005) History of right breast biopsy 03/2006 History of surgery Gastric Varices 01/2014, 02/2014, 03/2014, 04/17 Dr. Jones History of thyroid surgery tumor removal History of thyroidectomy (~1979) Status post cataract extraction of both eyes with insertion of intraocular lens Remote Family History Mother Chronic Kidney Disease Unknown Diabetes mellitus Motor vehicle accident Father Family history of arthritis Cardiac disease Essential hypertension Malignant neoplasm Lung cancer Heart disease Type 2 diabetes mellitus Sister Cardiac disease Rheumatic fever Brother Rheumatic fever Cerebrovascular accident Prostate cancer Family/Other Family history of arthritis Rheumatoid arthritis Social History household members: spouse housing: house lives independently: Yes marital status: education level: college 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 other: 3 children well-balanced diet: daily or most days physical activity: walking frequency: 3-4 times per week smoking status: Never smoker alcohol intake frequency: does not drink substance use type: does not use MEDS/ALLERGIES Home Medications and Allergies Home Medications Medication Instructions Recorded Confirmed Type pantoprazole 20 mg tablet,delayed 20 mg PO BID tab 11/14/19 06/15/21 History release ondansetron 4 mg disintegrating 4 mg PO Q8H PRN #7 tab 03/12/21 06/15/21 Rx tablet polyethylene glycol 3350 17 17 g PO BID g 05/06/21 06/15/21 History gram/dose oral powder (Miralax) rifaximin 550 mg tablet 550 mg PO BID tab 05/06/21 06/15/21 History spironolactone 100 mg tablet 100 mg PO QDAY tab 05/06/21 06/15/21 History (Aldactone) torsemide 20 mg tablet 20 mg PO QDAY tab 05/06/21 06/15/21 History Allergies Allergy/AdvReac Type Severity Reaction Status Date / Time hydrocodone AdvReac Severe Nausea Verified 06/15/21 15:53 hydrochlorothiazide AdvReac Intermediate hyponatremi Verified 06/15/21 15:53 a Hydroxychloroquine AdvReac Mild Nausea Verified 06/15/21 15:53 [From Plaquenil] EXAM Constitutional Vitals: Temp Pulse Resp BP Pulse Ox 98.0 F 75 18 144/60 100 06/15/21 15:54 06/15/21 18:00 06/15/21 18:00 06/15/21 18:00 06/15/21 19:10 General appearance: average body habitus, disheveled and no acute distress Head Head exam: Present atraumatic, normal inspection and normocephalic Eye Eye exam: Present normal appearance; Absent scleral icterus ENT ENT exam: Present normal exam Neck Neck exam: Present normal inspection Respiratory Respiratory exam: Present normal respiratory exam GI/Abdominal GI/Abdominal exam: Present organomegaly (splenomegaly) and tenderness Expanded GI/Abdominal Exam GI/Abdominal exam: Present ascites (small amount of ascites) Extremities Exam Extremities exam: Absent pedal edema Expanded Lower Extremity Exam Gait: Present not tested/not observed Neurological Exam Neurological exam: Present altered Expanded Neurological Exam Coma Scale Verbal Response: Confused Skin Skin exam: Present dry, normal color and warm DATA Data Completed and Pending Labs: Labs from last 24 hours 06/15/21 06/15/21 06/15/21 16:13 12:10 12:10 WBC RBC Hgb Hct MCV MCH MCHC RDW Plt Count MPV Neut % (Auto) Lymph % (Auto) Cocke % (Auto) Eos % (Auto) Baso % (Auto) Lymph # (Auto) Cocke # (Auto) Eos # (Auto) Baso # (Auto) Absolute Neutrophils Sodium 138 Potassium 4.2 Chloride 108 Carbon Dioxide 20 L Anion Gap 10.0 BUN 22 Creatinine 1.4 H GFR Calculation 38 Glucose 122 H Calcium 8.5 L Magnesium Total Bilirubin 1.4 H AST 36 H ALT 19 Alkaline Phosphatase 124 H Ammonia Troponin T < 0.01 Total Protein 6.1 Albumin 3.0 L Globulin 3.1 Albumin/Globulin Ratio 1.0 Procalcitonin 0.21 H 06/15/21 06/15/21 06/15/21 12:10 12:10 12:10 WBC 3.3 L RBC 3.27 L Hgb 10.0 L Hct 29.9 L MCV 91.4 MCH 30.6 MCHC 33.4 RDW 19.0 H Plt Count 61 L MPV 10.5 H Neut % (Auto) 71.3 Lymph % (Auto) 13.9 L Cocke % (Auto) 12.1 H Eos % (Auto) 1.8 Baso % (Auto) 0.9 Lymph # (Auto) 0.46 L Cocke # (Auto) 0.40 Eos # (Auto) 0.06 Baso # (Auto) 0.03 Absolute Neutrophils 2.35 Sodium 138 Potassium 4.3 Chloride 108 Carbon Dioxide 17 L Anion Gap 13.0 BUN 20 Creatinine 1.5 H GFR Calculation 35 Glucose 148 H Calcium 8.4 L Magnesium 2.6 H Total Bilirubin 1.7 H AST 39 H ALT 20 Alkaline Phosphatase 134 H Ammonia 142 H Troponin T Total Protein 6.3 Albumin 2.9 L Globulin 3.4 Albumin/Globulin Ratio 0.9 L Procalcitonin A/P Assessment and plan (1) Acute hepatic encephalopathy: Assessment and plan: We will arrange for US guided paracentesis with gram stain, culture and fluid analysis with cell count tomorrow. UA with culture pending. CXR and head CT unremarkable today. Certainly, if COVID PCR returns positive, that would explain her acute hepatic encephalopathy. In the interim, we will give her an additional dose of lactulose with 1/2-1 bottle of mag citrate in an effort to purge her bowels. if she is unable to take lactulose PO, this will be given via enema. Her SIBO may contribute to hepatic encephalopathy either with altered gut microbiotia or bacterial translocation, so in the future, if she has recurrent abdominal pain as an outpatient without evidence of SBP, we may consider a trial of low dose metronidazole or doxycycline intermittently. Will follow along with hospitalist. Status: Acute Time Spent With Patient Time: Total time spent is greater than 50% in coordination of care (as documented) at patient's floor/unit and/or counseling patient: Total time spent with greater than 50% in coordination of care (as documented) at patient's floor/unit and/or counseling patient:: Greater than 35 minutes
[2021-06-15] MEDS ORDERED: MAGNESIUM CITRATE 300 ML ORAL.SOL PO ONE (19:55)
[2021-06-15] MEDS: ONDANSETRON 4 MG/2 ML VIAL IV PRN (20:16)
[2021-06-15] MEDS: RIFAXIMIN 550 MG TABLET PO SCH (20:16)
[2021-06-15] MEDS: 0.9 % SODIUM CHLORIDE 10 ML SYRINGE IV SCH (20:17)
[2021-06-15] MEDS ORDERED: LACTULOSE 20 GM/30 ML ORAL.SOL PR PRN ×2 (21:00)
[2021-06-15 22:51] LABS: Appearance,Urine HAZY (Clear); Bilirubin,Urine Negative (Negative); Color,Urine YELLOW; Culture Indicated,Urine No; Glucose,Urine (UA) Negative (Negative); Ketones,Urine Negative (Negative); Leukocyte Esterase,Urine Negative /uL (Negative); Mucus,Urine FEW /hpf; Nitrate,Urine Negative (Negative); Protein,Urine 30 mg/dL (Negative); Specific Gravity,Urine 1.013 (1.000-1.035); Urine Hyaline Cast 16 /lph (0-2); Urine RBC 15 /hpf (0-3); Urine Squamous Epithelial Cell 3 /hpf (0-4); Urine WBC 2 /hpf (0-4)
[2021-06-16] MEDS: 0.9 % SODIUM CHLORIDE 1,000 ML IV SCH ×3 (02:00→22:27)
[2021-06-16] MEDS: 0.9 % SODIUM CHLORIDE 10 ML SYRINGE IV SCH ×3 (05:27→20:42)
[2021-06-16 07:17] LABS: ALT/SGPT 20 U/L (<40); AST/SGOT 38 U/L (<32); Albumin 2.8 gm/dL (3.2-5.2); Albumin/Globulin Ratio 0.9 (1.0-2.3); Alkaline Phosphatase 120 U/L (39-117); Bilirubin,Total 1.6 mg/dL (0.1-1.0); Blood Urea Nitrogen 18 mg/dL (8-23); Calcium 8.3 mg/dL (8.6-10.4); Carbon Dioxide 19 mmol/L (22-30); Chloride 114 mmol/L (96-108); Globulin 3.2 gm/dL (2.2-3.7); Glomerular Filtration Rate 38; Glucose 109 mg/dL (70-105)
[2021-06-16] MEDS: PANTOPRAZOLE 40 MG VIAL IV SCH (07:33)
[2021-06-16 07:41] LABS: Basophils # (Auto) 0.04 K/mcL (0.00-0.30); Basophils % (Auto) 1.1 % (0.0-2.0); Eosinophils # (Auto) 0.16 K/mcL (0.00-0.70); Eosinophils % (Auto) 4.5 % (0.0-7.0); Hematocrit 28.7 % (34.1-44.9); Hemoglobin 9.5 g/dL (11.2-15.7); Lymphocytes # (Auto) 0.54 K/mcL (1.50-4.80); Lymphocytes % (Auto) 15.3 % (15.5-49.0); Mean Cell Volume 91.7 fL (80.0-100.0); Mean Corpuscular HGB Conc 33.1 g/dL (31.0-36.0); Mean Platelet Volume 9.9 fL (7.4-10.4); Monocytes % (Auto) 11.4 % (1.0-12.0); Neutrophils % (Auto) 67.7 % (38.0-78.0); Platelet Count 55 K/mcL (140-440); RBC 3.13 M/mcL (3.59-5.38); Red Cell Distribution Width 18.6 % (11.5-14.5); WBC 3.5 K/mcL (4.5-11.0)
[2021-06-16] MEDS: RIFAXIMIN 550 MG TABLET PO SCH ×2 (09:31→20:43)
[2021-06-16] MEDS: SPIRONOLACTONE 25 MG TABLET PO SCH (09:31)
[2021-06-16] MEDS: LACTULOSE 20 GM/30 ML ORAL.SOL PO SCH ×2 (10:06→20:43)
--- NOTE | 2021-06-16 10:08 | Internal Med Progress Note ---
SUBJECTIVE Subjective Patient information: Note initiated : 06/16/21 at 10:02 am Service Date, if different from initiated Date: [] Patient: Addis Plascencia 71 y/o F admitted on 06/15/21 for alt. mental status. Chief Complaint: [] Interval history: History of present illness: Ms. Plascencia is a 71 year old F history of SLE, cirrhosis (COKER) with hepatic encephalopathy, CoVID pneumonia in 2019, p/w one day history of acute onset altered mental status. She had an episode of hepatic encephalopathy 2 months ago, when she was being prescribed with Lactulose. She only took it for a few days before stopping it due to diarrhea. Was last seen normal yesterday night when she went to bed. This morning when she woke up from bed, she appeared to be mentally confused, barely staying alert, unable to recognize family, and able to carry out any conversations, and unable to follow any verbal commands. Patient was being brought to our ED for further evaluations. Vital signs at ED presentations were completely within normal limits and her oxygen saturation was 100% on room air. Labs significant for leukopenia with WBC 3.3. Serum ammonia level 142. Lactic acid 1.2. Procalcitonin level 0.21. [place] positive. [place] results pendings. CT head w/o contract no signs of acute intra-cranial pathologies. CXR no acute intra-thoracic pathologies. 06/16: Had multiple bowel movements overnight. Improving mental status. A&O X3. Denies any pain or discomfort. Denies any fever, chills, or sweating. Constitutional Vitals: Vital Signs Temp Pulse Resp BP Pulse Ox 36.7 C 87 21 129/56 100 06/16/21 08:29 06/16/21 08:29 06/16/21 06:01 06/16/21 08:29 06/16/21 08:29 Period Temp Pulse Resp BP Sys/Miller Pulse Ox Last 24 Hr 36.3 C-36.8 C 69-95 06-06 110-157/39-83 98-100 Intake and Output 06/15/21 06/16/21 06/16/21 21:59 05:59 13:59 Intake Total 300 1000 Output Total 1500 1125 Balance -1200 -125 Weight 68.691 kg Intake & Output: Intake & Output 06/15/21 06/16/21 06/16/21 21:59 05:59 13:59 Intake Total 300 1000 Output Total 1500 1125 Balance -1200 -125 Weight 68.691 kg Intake: IV 1000 Sodium Chloride 0.9% 1,000 ml @ 1000 100 mls/hr IV .Q10H [facility] Rx#: [id number] Oral 300 Output: Urine Catheter Amount 1200 425 Stool 700 Emesis 300 Other: Urine Appearance Clear Clear Uretheral (White) Clear Urine Color Dark Yellow Dark Yellow Uretheral (White) Dark Yellow Stool Size Small Smear Stool Color Brown Brown Stool Consistency Loose Liquid # Bowel Movements 1 General appearance: average body habitus, cooperative and no acute distress Head Head exam: Present atraumatic and normal inspection Eye Eye exam: Present normal appearance ENT ENT exam: Present mucous membranes moist, normal exam and normal external ear exam Neck Neck exam: Present normal inspection Respiratory Respiratory exam: Present normal respiratory exam Cardiovascular Cardiovascular exam: Present normal rate and rhythm GI/Abdominal GI/Abdominal exam: Present normal bowel sounds Back Exam Back exam: Present normal inspection Neurological Exam Neurological exam: Present alert and oriented X3 Skin Skin exam: Present intact and warm OBJ DATA Labs CBC & Chem 7: 06/16/21 05:50 06/16/21 05:49 Labs: Abnormal Lab Results 06/16/21 06/16/21 06/16/21 05:50 05:50 05:49 WBC 3.5 L RBC 3.13 L Hgb 9.5 L Hct 28.7 L RDW 18.6 H Plt Count 55 L MPV Lymph % (Auto) 15.3 L Hartley % (Auto) Lymph # (Auto) 0.54 L Chloride 114 H Carbon Dioxide 19 L Creatinine 1.4 H Glucose 109 H Calcium 8.3 L Magnesium 2.6 H Total Bilirubin 1.6 H AST 38 H Alkaline Phosphatase 120 H Ammonia Albumin 2.8 L Albumin/Globulin Ratio 0.9 L Procalcitonin Urine Appearance Urine Protein Urine Urobilinogen Urine RBC Hyaline Casts Urine Mucus 06/15/21 06/15/21 06/15/21 22:13 16:13 12:10 WBC RBC Hgb Hct RDW Plt Count MPV Lymph % (Auto) Hartley % (Auto) Lymph # (Auto) Chloride Carbon Dioxide 20 L Creatinine 1.4 H Glucose 122 H Calcium 8.5 L Magnesium Total Bilirubin 1.4 H AST 36 H Alkaline Phosphatase 124 H Ammonia Albumin 3.0 L Albumin/Globulin Ratio Procalcitonin 0.21 H Urine Appearance Hazy A Urine Protein 30 A Urine Urobilinogen 2.0 A Urine RBC 15 H Hyaline Casts 16 H Urine Mucus Few A 06/15/21 06/15/21 06/15/21 12:10 12:10 12:10 WBC 3.3 L RBC 3.27 L Hgb 10.0 L Hct 29.9 L RDW 19.0 H Plt Count 61 L MPV 10.5 H Lymph % (Auto) 13.9 L Hartley % (Auto) 12.1 H Lymph # (Auto) 0.46 L Chloride Carbon Dioxide 17 L Creatinine 1.5 H Glucose 148 H Calcium 8.4 L Magnesium 2.6 H Total Bilirubin 1.7 H AST 39 H Alkaline Phosphatase 134 H Ammonia 142 H Albumin 2.9 L Albumin/Globulin Ratio 0.9 L Procalcitonin Urine Appearance Urine Protein Urine Urobilinogen Urine RBC Hyaline Casts Urine Mucus Meds: Medications Acetaminophen (Acetaminophen 325 Mg Tablet) 325 mg PO Q6HP PRN; Protocol PRN Reason: Per Pain Protocol/Fever > 101 Albuterol/Ipratropium (Ipratropium/Albuterol 3 Ml Ampul.Neb) 3 ml NEB Q4HRT PRN PRN Reason: Wheezing Sodium Chloride (Sodium Chloride 0.9%) 1,000 mls @ 100 mls/hr IV .Q10H [facility] Last Admin: 06/16/21 02:00 Dose: 100 mls/hr Documented by: Lactulose (Lactulose 20 Gm/30 Ml Oral.Emily) 20 gm PO BID [facility] Last Admin: 06/15/21 20:16 Dose: 20 gm Documented by: Lactulose (Lactulose 20 Gm/30 Ml Oral.Emily) 30 gm [place] BIDP PRN PRN Reason: IF UNABLE TO TAKE PO LACTULOSE Ondansetron HCl (Ondansetron 4 Mg/2 Ml Vial) 4 mg IV Q4HP PRN; Protocol PRN Reason: Nausea And Vomiting Last Admin: 06/15/21 20:16 Dose: 4 mg Documented by: Pantoprazole Sodium (Pantoprazole 40 Mg Vial) 40 mg IV QAMAC [facility] Last Admin: 06/16/21 07:33 Dose: 40 mg Documented by: Sodium Chloride (0.9 % Sodium Chloride 10 Ml Syringe) 10 ml IV Q8 [facility] Last Admin: 12/01/21 05:27 Dose: Not Given Documented by: Spironolactone (Spironolactone 25 Mg Tablet) 100 mg PO DAILY [facility] Last Admin: 06/16/21 09:31 Dose: 100 mg Documented by: A/P Assessment and plan (1) Chronic kidney disease (CKD) stage G3a/A1, moderately decreased glomerular filtration rate (GFR) between 45-59 mL/min/1.73 square meter and albuminuria creatinine ratio less than 30 mg/g: Status: Chronic (2) Stage 1 acute kidney injury: Status: Acute (3) Delirium: Status: Acute (4) Hepatic encephalopathy: Status: Acute (5) Ascites: Status: Chronic Comment: H/O (12/11/2014-Karen) Qualifiers: Ascites type: other type Qualified Code(s): R18.8 - Other ascites (6) Other secondary thrombocytopenia: Status: Acute (7) Anemia, normocytic normochromic: Status: Acute (8) Hypokalemia: Status: Acute Narrative A/P Narrative: Assessment and Plans: 1. Delirium due to hepatic encephalopathy: DDx: CoVID delirium vs acute ischemic stroke vs other bacterial infection such a s UTI Transfer to inpatient med surg [place] test negative UA with reflexive urine culture if indicated cbc w/ auto diff in the morning to trend WBC CMP in the morning to trend LFTs Ammonia level 142-->42 Passed nurse bedside swallowing evaluation-->regular diet Physical therapy Occupational therapy Speech therapy Lactulose 20gm PO BID, MN if cannot tolerate oral initially Rifaximin Aldactone 2. Thrombocytopenia: cbc w/ auto diff in the morning to trend plt, transfuse plt if level <15 3. Anemia, normocytic normochromic: cbc w/ auto diff in the morning to trend H/H; transfuse pRBC if hemoglobin <7.0, active bleeding, or symptomatic 4. Stage 1 acute kidney injury in the context of chronic kidney disease stage 3A: Avoid nephrotoxic agents NS@100cc/hr CMP in the morning to trend kidney functions 5. Hypokalemia: Potassium chloride oral replacement Repeat CMP daily to trend serum potassium level Also check serum Mg level and replace as needed GI ppx: Protonix IV DVT ppx: SCDs Code status: Full Prognosis: guarded Disposition: transfer to inpatient med surg Time Spent With Patient Time: Total time spent is greater than 50% in coordination of care (as documented) at patient's floor/unit and/or counseling patient: Total time spent with greater than 50% in coordination of care (as documented) at patient's floor/unit and/or counseling patient:: Greater than 35 minutes QUALITY VTE Deep Vein Thrombosis/Pulmonary Embolism Present on Admission: No
[2021-06-16] MEDS: POTASSIUM CHLORIDE 20 MEQ TABLET PO SCH ×2 (11:04→18:42)
--- NOTE | 2021-06-16 21:13 | EKG ---
[facility] Test Date: 2021-06-15 Pat Name: Addis Plascencia Department: ED Room: Gender: Female Change Manager: sb : 1950 Requested By: Grady Choe Order Number: [id number] Reading MD: Agustín Hendrickson Measurements Intervals [place] Rate: 77 P: 20 [place]: 134 QRS: 1 QRSD: 90 T: 13 QT: 418 QTc: 474 Interpretive Statements Sinus rhythm Abnormal R-wave progression, early transition Baseline wander in lead(s) V2,V3 Electronically Signed On 06-16-2021 21:13:07 PST by Agustín Hendrickson /store/M0/[id number]
[2021-06-17] MEDS: 0.9 % SODIUM CHLORIDE 10 ML SYRINGE IV SCH ×3 (05:52→20:18)
[2021-06-17] MEDS: PANTOPRAZOLE 40 MG VIAL IV SCH (07:13)
[2021-06-17] MEDS: POTASSIUM CHLORIDE 20 MEQ TABLET PO SCH ×2 (08:17→17:19)
[2021-06-17] MEDS: SPIRONOLACTONE 25 MG TABLET PO SCH (08:17)
[2021-06-17] MEDS: RIFAXIMIN 550 MG TABLET PO SCH ×2 (08:17→20:18)
[2021-06-17] MEDS: LACTULOSE 20 GM/30 ML ORAL.SOL PO SCH ×2 (08:17→20:18)
[2021-06-17] MEDS: 0.9 % SODIUM CHLORIDE 1,000 ML IV SCH ×2 (08:32→18:22)
[2021-06-17 08:55] LABS: ALT/SGPT 17 U/L (<40); AST/SGOT 33 U/L (<32); Albumin 2.5 gm/dL (3.2-5.2); Albumin/Globulin Ratio 0.8 (1.0-2.3); Alkaline Phosphatase 115 U/L (39-117); Bilirubin,Total 1.5 mg/dL (0.1-1.0); Blood Urea Nitrogen 15 mg/dL (8-23); Calcium 7.9 mg/dL (8.6-10.4); Carbon Dioxide 17 mmol/L (22-30); Chloride 111 mmol/L (96-108); Glomerular Filtration Rate 51; Glucose 93 mg/dL (70-105)
[2021-06-17] MEDS: ONDANSETRON 4 MG/2 ML VIAL IV PRN (09:17)
--- NOTE | 2021-06-17 10:46 | Internal Med Progress Note ---
SUBJECTIVE Subjective Patient information: Note initiated : 06/17/21 at 10:40 am Service Date, if different from initiated Date: [] Patient: Addis Plascencia 71 y/o F admitted on 06/15/21 for alt. mental status. Chief Complaint: [] Interval history: History of present illness: Ms. Plascencia is a 71 year old F history of SLE, cirrhosis (COKER) with hepatic encephalopathy, CoVID pneumonia in 2019, p/w one day history of acute onset altered mental status. She had an episode of hepatic encephalopathy 2 months ago, when she was being prescribed with Lactulose. She only took it for a few days before stopping it due to diarrhea. Was last seen normal yesterday night when she went to bed. This morning when she woke up from bed, she appeared to be mentally confused, barely staying alert, unable to recognize family, and able to carry out any conversations, and unable to follow any verbal commands. Patient was being brought to our ED for further evaluations. Vital signs at ED presentations were completely within normal limits and her oxygen saturation was 100% on room air. Labs significant for leukopenia with WBC 3.3. Serum ammonia level 142. Lactic acid 1.2. Procalcitonin level 0.21. [place] positive. [place] results pendings. CT head w/o contract no signs of acute intra-cranial pathologies. CXR no acute intra-thoracic pathologies. 06/16: Had multiple bowel movements overnight. Improving mental status. A&O X3. Denies any pain or discomfort. Denies any fever, chills, or sweating. 06/17-patient doing well. Much more lucid alert. Titrating lactulose to bowel movements. Feels better but not yet close to baseline. Stable labs and hemodynamics. Will likely discharge in 24 hours. Complains of itching rash back of neck and lower back. Creatinine down to 1.1, bilirubin 1.5, Constitutional Vitals: Vital Signs Temp Pulse Resp BP Pulse Ox 98.4 F 83 18 142/68 96 06/17/21 07:47 06/17/21 07:47 06/17/21 07:47 06/17/21 07:47 06/17/21 07:47 Period Temp Pulse Resp BP Sys/Miller Pulse Ox Last 24 Hr 98.4 F-99.4 F 83-100 18-20 110-153/58-68 93-100 Intake and Output 06/16/21 06/17/21 06/17/21 21:59 05:59 13:59 Intake Total 5213 768 0673 Output Total 150 550 Balance 1400 250 810 Weight 75.387 kg Alert oriented Nonlabored breathing Nondistended abdomen No lymphedema Maculopapular rash back of neck and lower back Intake & Output: Intake & Output 06/16/21 06/17/21 06/17/21 21:59 05:59 13:59 Intake Total 7279 403 6589 Output Total 150 550 Balance 1400 250 810 Weight 75.387 kg Intake: IV 1000 1000 Sodium Chloride 0.9% 1,000 ml @ 1000 1000 100 mls/hr IV .Q10H [facility] Rx#: [id number] Oral 400 400 360 Output: Urine/Stool Mix 550 Stool 150 Other: Meal Breakfast Percent of Meal Consumed 100% Feeding Ability Independent Stool Size Small Small Moderate Stool Color Brown Brown Brown Yellow Stool Consistency Loose Soft Soft # Voids 1 1 # Bowel Movements 1 1 1 # of times incontinent of 1 Bowels OBJ DATA Labs CBC & Chem 7: 06/16/21 05:50 06/17/21 05:23 Labs: Abnormal Lab Results 06/17/21 06/16/21 06/16/21 05:23 05:50 05:50 WBC 3.5 L RBC 3.13 L Hgb 9.5 L Hct 28.7 L RDW 18.6 H Plt Count 55 L MPV Lymph % (Auto) 15.3 L Young % (Auto) Lymph # (Auto) 0.54 L Chloride 111 H Carbon Dioxide 17 L Creatinine Glucose Calcium 7.9 L Magnesium 2.6 H Total Bilirubin 1.5 H AST 33 H Alkaline Phosphatase Ammonia Total Protein 5.5 L Albumin 2.5 L Albumin/Globulin Ratio 0.8 L Procalcitonin Urine Appearance Urine Protein Urine Urobilinogen Urine RBC Hyaline Casts Urine Mucus 06/16/21 06/15/21 06/15/21 05:49 22:13 16:13 WBC RBC Hgb Hct RDW Plt Count MPV Lymph % (Auto) Young % (Auto) Lymph # (Auto) Chloride 114 H Carbon Dioxide 19 L 20 L Creatinine 1.4 H 1.4 H Glucose 109 H 122 H Calcium 8.3 L 8.5 L Magnesium Total Bilirubin 1.6 H 1.4 H AST 38 H 36 H Alkaline Phosphatase 120 H 124 H Ammonia Total Protein Albumin 2.8 L 3.0 L Albumin/Globulin Ratio 0.9 L Procalcitonin Urine Appearance Hazy A Urine Protein 30 A Urine Urobilinogen 2.0 A Urine RBC 15 H Hyaline Casts 16 H Urine Mucus Few A 06/15/21 06/15/21 06/15/21 12:10 12:10 12:10 WBC RBC Hgb Hct RDW Plt Count MPV Lymph % (Auto) Young % (Auto) Lymph # (Auto) Chloride Carbon Dioxide 17 L Creatinine 1.5 H Glucose 148 H Calcium 8.4 L Magnesium 2.6 H Total Bilirubin 1.7 H AST 39 H Alkaline Phosphatase 134 H Ammonia 142 H Total Protein Albumin 2.9 L Albumin/Globulin Ratio 0.9 L Procalcitonin 0.21 H Urine Appearance Urine Protein Urine Urobilinogen Urine RBC Hyaline Casts Urine Mucus 06/15/21 12:10 WBC 3.3 L RBC 3.27 L Hgb 10.0 L Hct 29.9 L RDW 19.0 H Plt Count 61 L MPV 10.5 H Lymph % (Auto) 13.9 L Young % (Auto) 12.1 H Lymph # (Auto) 0.46 L Chloride Carbon Dioxide Creatinine Glucose Calcium Magnesium Total Bilirubin AST Alkaline Phosphatase Ammonia Total Protein Albumin Albumin/Globulin Ratio Procalcitonin Urine Appearance Urine Protein Urine Urobilinogen Urine RBC Hyaline Casts Urine Mucus Meds: Medications Acetaminophen (Acetaminophen 325 Mg Tablet) 325 mg PO Q6HP PRN; Protocol PRN Reason: Per Pain Protocol/Fever > 101 Albuterol/Ipratropium (Ipratropium/Albuterol 3 Ml Ampul.Neb) 3 ml NEB Q4HRT PRN PRN Reason: Wheezing Sodium Chloride (Sodium Chloride 0.9%) 1,000 mls @ 100 mls/hr IV .Q10H JAY Last Admin: 06/17/21 08:32 Dose: 100 mls/hr Documented by: Lactulose (Lactulose 20 Gm/30 Ml Oral.Emily) 20 gm PO BID JAY Last Admin: 06/17/21 08:17 Dose: 20 gm Documented by: Lactulose (Lactulose 20 Gm/30 Ml Oral.Emily) 30 gm ID BIDP PRN PRN Reason: IF UNABLE TO TAKE PO LACTULOSE Ondansetron HCl (Ondansetron 4 Mg/2 Ml Vial) 4 mg IV Q4HP PRN; Protocol PRN Reason: Nausea And Vomiting Last Admin: 06/17/21 09:17 Dose: 4 mg Documented by: Pantoprazole Sodium (Pantoprazole 40 Mg Vial) 40 mg IV QAMAC [facility] Last Admin: 06/17/21 07:13 Dose: 40 mg Documented by: Potassium Chloride (Potassium Chloride 20 Meq Tablet) 20 meq PO BIDCC [facility] Last Admin: 06/17/21 08:17 Dose: 20 meq Documented by: Sodium Chloride (0.9 % Sodium Chloride 10 Ml Syringe) 10 ml IV Q8 [facility] Last Admin: 06/17/21 05:52 Dose: Not Given Documented by: Spironolactone (Spironolactone 25 Mg Tablet) 100 mg PO DAILY [facility] Last Admin: 06/17/21 08:17 Dose: 100 mg Documented by: A/P Narrative A/P Narrative: * Delirium due to hepatic encephalopathy: Clinically improved on lactulose/rifaximin. Ammonia normalized. 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
[2021-06-17] MEDS: HYDROCORTISONE CRM 1% TUBE 30GM TOPICAL PRN (15:33)
[2021-06-18] MEDS: ONDANSETRON 4 MG/2 ML VIAL IV PRN (02:50)
[2021-06-18] MEDS: 0.9 % SODIUM CHLORIDE 1,000 ML IV SCH (04:10)
[2021-06-18] MEDS: 0.9 % SODIUM CHLORIDE 10 ML SYRINGE IV SCH ×2 (05:52→16:21)
[2021-06-18] MEDS: PANTOPRAZOLE 40 MG VIAL IV SCH (06:47)
[2021-06-18 07:17] LABS: ALT/SGPT 17 U/L (<40); AST/SGOT 32 U/L (<32); Albumin 2.4 gm/dL (3.2-5.2); Albumin/Globulin Ratio 0.8 (1.0-2.3); Alkaline Phosphatase 106 U/L (39-117); Bilirubin,Total 1.4 mg/dL (0.1-1.0); Blood Urea Nitrogen 13 mg/dL (8-23); Carbon Dioxide 15 mmol/L (22-30); Chloride 112 mmol/L (96-108); Globulin 2.9 gm/dL (2.2-3.7); Glomerular Filtration Rate 51; Glucose 127 mg/dL (70-105)
[2021-06-18] MEDS: SPIRONOLACTONE 25 MG TABLET PO SCH (08:21)
[2021-06-18] MEDS: HYDROCORTISONE CRM 1% TUBE 30GM TOPICAL PRN (08:21)
[2021-06-18] MEDS: RIFAXIMIN 550 MG TABLET PO SCH (08:21)
[2021-06-18] MEDS: LACTULOSE 20 GM/30 ML ORAL.SOL PO SCH (08:21)
[2021-06-18] MEDS: POTASSIUM CHLORIDE 20 MEQ TABLET PO SCH (08:21)
[2021-06-18] MEDS ORDERED: METOLAZONE 2.5 MG TABLET PO ONE (08:39)
[2021-06-18] MEDS ORDERED: FUROSEMIDE 40 MG/4 ML VIAL IV ONE (08:39)
[2021-06-18] MEDS ORDERED: TORSEMIDE 10 MG TABLET PO SCH (09:00)
--- NOTE | 2021-06-18 14:01 | Discharge Summary ---
Discharge Provider Provider Patient information: Note initiated : 06/18/21 at 1:59 pm Service Date, if different from initiated Date: [] Patient: Addis Plascencia 71 y/o F admitted on 06/15/21 for alt. mental status. Chief Complaint: [] Date of admission: 06/15/21 15:24 Discharge date: 06/18/21 Primary care physician: Brad Rubio MD Consults: 06/15/21 Consult to Physician [CONS] Stat Comment: Consulting Provider: Tristian Borjas Reason For Exam: Physician to Consult Discharge Meds Discharge Medications Home Medications pantoprazole 20 mg tablet,delayed release 20 mg PO BID tab 11/14/19 [History Confirmed 06/15/21 Last Taken 04/19/21 07:00] ondansetron 4 mg disintegrating tablet 4 mg PO Q8H PRN #7 tab 03/12/21 [Rx Confirmed 06/15/21 Last Taken 04/04/21] polyethylene glycol 3350 17 gram/dose oral powder (Miralax) 17 g PO BID g 05/06/21 [History Confirmed 06/15/21 Last Taken Unknown] rifaximin 550 mg tablet 550 mg PO BID tab 05/06/21 [History Confirmed 06/15/21 Last Taken Unknown] spironolactone 100 mg tablet (Aldactone) 100 mg PO QDAY tab 05/06/21 [History Confirmed 06/15/21 Last Taken Unknown] torsemide 20 mg tablet 20 mg PO QDAY tab 05/06/21 [History Confirmed 06/15/21 Last Taken Unknown] COURSE Hospital Course Hospital course: Ms. Plascencia is a 71 year old F history of SLE, cirrhosis (COKER) with hepatic encephalopathy, CoVID pneumonia in 2019, p/w one day history of acute onset altered mental status. She had an episode of hepatic encephalopathy 2 months ago, when she was being prescribed with Lactulose. She only took it for a few days before stopping it due to diarrhea. Was last seen normal yesterday night when she went to bed. This morning when she woke up from bed, she appeared to b e mentally confused, barely staying alert, unable to recognize family, and able to carry out any conversations, and unable to follow any verbal commands. Patient was being brought to our ED for further evaluations. Vital signs at ED presentations were completely within normal limits and her oxygen saturation was 100% on room air. Labs significant for leukopenia with WBC 3.3. Serum ammonia level 142. Lactic acid 1.2. Procalcitonin level 0.21. [place] positive. [place] results pendings. CT head w/o contract no signs of acute intra-cranial pathologies. CXR no acute intra-thoracic pathologies. 06/16: Had multiple bowel movements overnight. Improving mental status. A&O X3. Denies any pain or discomfort. Denies any fever, chills, or sweating. 06/17-patient doing well. Much more lucid alert. Titrating lactulose to bowel movements. Feels better but not yet close to baseline. Stable labs and hemodynamics. Will likely discharge in 24 hours. Complains of itching rash back of neck and lower back. Creatinine down to 1.1, bilirubin 1.5, 06/18-patient doing a lot better. Requesting discharge. Mentation at baseline. Continue lactulose/rifaximin/spinal lactone and torsemide. Recommend follow-up with GI as outpatient. No overnight fever chills. Discharge diagnosis: Hepatic encephalopathy Secondary discharge diagnosis: Mild KAREN resolved Time Spent with Patient Time attestation: Total time spent providing and/or coordinating discharge services: Time spent: Greater than 30 minutes EXAM Constitutional Vitals: Temp Pulse Resp BP Pulse Ox 96.8 F L 81 17 164/74 100 06/18/21 11:27 06/18/21 11:27 06/18/21 11:27 06/18/21 11:27 06/18/21 11:27 Discharge Data Data Completed and Pending Labs on day of discharge: Labs from last 24 hours 06/18/21 05:34 Sodium 135 Potassium 4.5 Chloride 112 H Carbon Dioxide 15 L Anion Gap 8.0 BUN 13 Creatinine 1.1 GFR Calculation 51 Glucose 127 H Calcium 8.0 L Total Bilirubin 1.4 H AST 32 H ALT 17 Alkaline Phosphatase 106 Total Protein 5.3 L Albumin 2.4 L Globulin 2.9 Albumin/Globulin Ratio 0.8 L Preliminary micro results at discharge 06/15/21 12:20 Blood Culture - Preliminary Blood 06/15/21 12:15 Blood Culture - Preliminary Blood Discharge Plan Patient/Caregiver Discharge Instructions Activity: increase activity as tolerated Diet: Low Sodium (2gm) Instructions: Hepatic Encephalopathy (GEN) Activity Restrictions/Additional Instructions: Continue lactulose/rifaximin Continue spironolactone/torsemide Follow-up with GI in 5 to 7 days Return to ER if worsening mental status change Prescriptions: No Action pantoprazole 20 mg tablet,delayed release (DR/EC) 20 mg PO BID 0RF spironolactone [Aldactone] 100 mg tablet 100 mg PO QDAY 0RF torsemide 20 mg tablet 20 mg PO QDAY 0RF Xifaxan 550 mg tablet 550 mg PO BID 0RF polyethylene glycol 3350 [Miralax] 17 gram/dose powder 17 g PO BID 0RF ondansetron 4 mg tablet,disintegrating 4 mg PO Q8H PRN (Reason: nausea and vomiting) Qty: 7 0RF Follow Up Plan Follow up with: Brad Rubio MD [Primary Care Provider] - 06/24/21 11:00 am Patient Disposition: Home, Self-Care Rehab Potential: Fair I certify that the patient requires SNF services: No Overall status at discharge: patient is progressing back to baseline Discharge Orders: Discharge Order (Routine); Ordered 06/18/21 Ordered By: Oscar GRAHAM VTE Deep Vein Thrombosis/Pulmonary Embolism Present on Admission: No
== END 2021-06-18 16:30 | disposition home or self-care (01) | DRG 441 ==
LOC: ED 11:49 → ICU 15:24 → MEDSUR 06-16 12:32
PROVIDERS: ADMIT Internal Medicine; ATTEND Internal Medicine

== ENCOUNTER 2021-12-08 14:22 | Inpatient (IN) ==
--- NOTE | 2021-12-08 14:26 | Emergency Department Note ---
HPI General Chief complaint: Blood Sugar Problem Stated complaint: blood sugar > 700, confusion Time Seen by Provider: 12/08/21 14:26 Source: patient and family (And daughter) Mode of arrival: ambulatory Limitations: no limitations History of Present Illness HPI Narrative: Narrative: 71-year-old female presents to the emerged department accompanied by her daughter because of weakness. The patient has lupus which is caused multiple complications including liver disease which has caused hepatic encephalopathy. She takes lactulose for this and has generally managed her well. She has also been diagnosed as having low platelets and so has gone on infusion therapy very and started steroids. On the steroids the last couple days she is now had shakiness and weakness for about 2 to 3 days. She was also recently diagnosed with urinary tract infection for which she was prescribed Cipro. She comes to the emergency department here today where her fingerstick blood sugar was over 700. Related Data Home Medications Medication Instructions Recorded Confirmed pantoprazole 20 mg tablet,delayed 20 mg PO BIDAC tab 11/14/19 12/08/21 release rifaximin 550 mg tablet 550 mg PO BID tab 05/06/21 12/08/21 spironolactone 100 mg tablet 100 mg PO QDAY tab 05/06/21 12/08/21 (Aldactone) lactulose 10 gram/15 mL oral 10 g PO TID ml 06/21/21 12/08/21 solution levothyroxine 88 mcg tablet 88 mcg PO ACB 12/08/21 12/08/21 ondansetron 4 mg disintegrating 4 mg PO Q8HP PRN 12/08/21 12/08/21 tablet prednisone 20 mg tablet 2 tab PO QDAY 12/08/21 12/08/21 Previous Rx's Medication Instructions Recorded cholecalciferol (vitamin D3) 125 125 mcg PO QDAY #90 tab 10/13/21 mcg (5,000 unit) tablet Accu-Chek 1 ea SUBCUT ACS #1 ea 12/13/21 Accu-Chek Guide Glucose Meter #1 ea NS 12/13/21 (blood-glucose meter) Accu-Chek Guide test strips (blood #100 ea NS 12/13/21 sugar diagnostic) blood sugar diagnostic (Accu-Chek #100 ea 12/13/21 Sabrina Plus test strp) blood-glucose meter #1 ea 12/13/21 blood-glucose meter (Accu-Chek #1 ea 12/13/21 Sabrina Plus Meter) insulin glargine 100 unit/mL (3 35 unit (0.35 mL) SUBCUT QDAY #2 12/13/21 mL) subcutaneous pen (Lantus pen Solostar U-100 Insulin) insulin lispro 100 unit/mL 5 unit (0.05 mL) SUBCUT .TIDM #2 12/13/21 subcutaneous pen (Humalog KwikPen pen (U-100) Insulin) lancets (Accu-Chek Fastclix Lancet #100 ea 12/13/21 Drum) lancets 26 gauge (Lancets,Ultra #100 ea 12/13/21 Thin) pen needle, diabetic 29 gauge x #100 ea 12/13/21 1/" pregabalin 75 mg capsule 75 mg PO BID #60 cap 12/13/21 Allergies Allergy/AdvReac Type Severity Reaction Status Date / Time hydrochlorothiazide AdvReac Mild hyponatremi Verified 12/08/21 14:25 a hydrocodone AdvReac Mild Nausea Verified 12/08/21 14:25 Hydroxychloroquine AdvReac Mild Nausea Verified 12/08/21 14:25 [From Plaquenil] Review of Systems ROS ROS Narrative: Narrative: Constitutional: Denies fever Eyes: Reports vision change (Blurry) ENT ED: Reports throat pain; Denies ear pain or rhinorrhea Cardiovascular: Denies chest pain Respiratory: Reports shortness of breath (Remote) Gastrointestinal: Reports nausea; Denies vomiting Genitourinary: Reports dysuria (Has UTI) Musculoskeletal: Denies back pain Integumentary: Denies rash Neurological: Denies headache Psychiatric: Denies depression Hematological/Lymphatic: Reports other (Low platelets) PFSH Narrative Patient History Narrative: Narrative: Medical/Surgical/Family History All Active Problems Diabetes mellitus (Acute) Diabetes mellitus (Acute) Abdominal pain, RUQ (Chronic) Ascites (Chronic) Cirrhosis of liver (Chronic) Connective tissue disease (Chronic) Elevated serum glutamic pyruvic transaminase (SGPT) level (Chronic) Esophageal varices (Chronic 09/26/13) Gastroesophageal reflux (Chronic) Hernia, hiatal (Chronic) Hypertension, essential, benign (Chronic) Hypothyroidism (Chronic) Osteoarthritis (Chronic) Polyarthropathy, inflammatory (Chronic) Portal hypertension (Chronic) Sjogren's syndrome (Chronic) Splenomegaly (Chronic) Thyroid nodule (Chronic) Vertigo (Chronic) Portal vein thrombosis (Chronic) Urinary tract infection (Chronic) Systemic lupus erythematosus (Chronic) Iron deficiency anemia (Chronic) Edema (Chronic) Insomnia (Chronic) Dysphagia (Chronic) Colonic adenoma (Chronic) Osteoporosis (Chronic) Hemolytic anemia (Chronic) Lower back pain (Chronic) Fatigue (Chronic) Parotid swelling (Chronic) Back pain (Chronic) Sicca syndrome (Chronic) Acquired pancytopenia (Chronic) Hemorrhoid (Chronic) Adenomatous colon polyp (Chronic ~2008) IBS (irritable bowel syndrome) (Chronic) Vitamin D deficiency (Chronic) Anemia (Chronic) Confusion (Acute) Stage 1 acute kidney injury (Acute) Delirium (Acute) Other secondary thrombocytopenia (Acute) Anemia, normocytic normochromic (Acute) Hypokalemia (Acute) Chronic kidney disease (CKD) stage G4/A1, severely decreased glomerular filtration rate (GFR) between 15-29 mL/min/1.73 square meter and albuminuria creatinine ratio less than 30 mg/g (Acute) Localized edema due to fluid overload (Chronic) Medicare annual wellness visit, subsequent (Acute) Acute ITP (Acute) Generalized weakness (Acute) DKA (diabetic ketoacidosis) (Acute) Medical History Abdominal bloating Abdominal pain, RUQ Acquired pancytopenia Acute ITP Adenomatous colon polyp (~2008) Anemia Ascites H/O (12/11/2014-Karen) Back pain Blood in stool Melenotic Stool (05/08/14-Dr Jones) Body mass index (BMI) 35 or more 37.3 Breast cancer Status post right partial mastectomies, radiation, hormonal therapy Bronchitis (09/25/14) Cirrhosis of liver ? autoimmune etiology Colonic adenoma 2008 Confusion Conjunctivitis (09/25/14) OD Conjunctivitis Connective tissue disease Cough Dehydration Dry eyes Dry mouth Dysphagia Edema Elevated liver enzymes Mild Elevated serum glutamic pyruvic transaminase (SGPT) level Encounter for long-term (current) use of high-risk medication Epistaxis Esophageal varices (09/26/13) Esophagitis, reflux Fatigue Gastric erosion (05/27/14-Dr Jones) Gastric polyps Bleeding gastric polyps found on EGD in August 2019 We have not received the pathology report We will request those records Gastritis and gastroduodenitis Gastroesophageal reflux Hand pain Hemolysis Hemolytic anemia Dr. Mendoza, but it looks like she has not seen him for at least a year. We will monitor CBC for stability. 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 Lower back pain Medicare annual wellness visit, subsequent Medication side effect lower extremity edema likely secondary to amlodipine Nasal discharge Daily bloody nasal discharge Nausea & vomiting Night sweats intermittently past 6 months Osteoarthritis Osteoporosis not treated, can't take Fosamax d/t esophageal varices Pancytopenia H/O Parotid swelling Pathological fracture, right humerus, sequela PND (post-nasal drip) Bloody Polyarthropathy, inflammatory Portal hypertension H/o Portal vein thrombosis Resolved and off of Lovenox Reactive airway disease (09/25/14) Rectal bleeding Renal failure Seborrheic keratoses Sutures are removed Sicca syndrome Sicca syndrome with keratoconjunctivitis Sjogren's syndrome Skin lesion Left forearm measuring 5 x 6 mm by calipers. Excised. Splenomegaly Stricture of right ureter right. UVJ. Systemic lupus erythematosus Thrombocytopenia Thyroid nodule 2007 Stable and benign Upper GI bleed Secondary to gastritis UTI (urinary tract infection) Vertigo BPPV Vitamin D deficiency Wrist pain Left Surgical History Fracture, humerus 05/08/15 ORIF History of biopsy (01/23/14) Liver History of X3 History of carpal tunnel release X2 History of cholecystectomy (01/27/14) History of colonoscopy (02/15/17) 01/03/13 - Uncomplicated internal hemorrhoids, few diverticuli. 10/12/15 - hemorrhoids. Dr. Jones. 02/15/17 - Hemorrhoids-7 year follow up. History of endoscopy Variceal Banding Multiple times by Dr. Orozco. History of esophagogastroduodenoscopy (01/06/17) 09/11/19 - Dr. Sunny Story 10/02/14 - Dr. Jones 06/04/15 Dr Jones - esophageal varices were banded. Gastritis. Gastric ulcer. Yeast. 09/04/15 Dr Jones - varices. H. pylori. Gastritis. 01/06/17-Dr. Jones - varices. gastritis. One year F/U. 01/03/18-Dr Jones-gastritis, scarring, small varices, possible esophageal dysmotility. 05/24/18-Dr Jones-upper GI bleed secondary to gastritis. Esophageal varices. Esophagitis. History of hysterectomy MARIA DOLORES/BSO History of knee surgery X5 History of liver biopsy (01/27/14) History of lumpectomy of right breast 2005 And sentinel node biopsy followed by radiation. History of partial mastectomy (~2005) History of right breast biopsy 03/2006 History of surgery Gastric Varices 01/2014, 02/2014, 03/2014, 04/17 Dr. Jones History of thyroid surgery tumor removal History of thyroidectomy (~1979) Status post cataract extraction of both eyes with insertion of intraocular lens Remote Family History Mother Chronic Kidney Disease Unknown Diabetes mellitus Motor vehicle accident Father Family history of arthritis Cardiac disease Essential hypertension Malignant neoplasm Lung cancer Heart disease Type 2 diabetes mellitus Sister Cardiac disease Rheumatic fever Brother Rheumatic fever Cerebrovascular accident Prostate cancer Family/Other Family history of arthritis Rheumatoid arthritis Social History Smoking Status: Never smoker Alcohol Intake Frequency: does not drink Substance Use: does not use Exam Narrative Narrative: Narrative: General Limitations: no limitations General appearance: Present alert and in distress Head Head: Present atraumatic and normocephalic Eye Eye: Present normal appearance Neck Neck: Present normal inspection and trachea midline Respiratory Respiratory: Present normal lung sounds bilaterally; Absent respiratory distress Cardiovascular Cardiovascular: Present regular rate and normal rhythm Adbominal Abdominal: Present soft; Absent tenderness Extremities Extremities: Present normal inspection Neurological Neurological: Present alert and oriented X3 Psychiatric Psychiatric: Present normal affect and normal mood Skin Skin: Present warm (WNL) and dry Course Vital Signs Vital signs: Vital Signs Temperature 98.1 F 12/08/21 14:24 Pulse Rate 101 H 12/08/21 14:24 Respiratory Rate 16 12/08/21 14:24 Blood Pressure 177/70 12/08/21 14:24 Pulse Oximetry (%) 96 12/08/21 14:24 Temperature 96.7 F L 12/13/21 14:00 Pulse Rate 68 12/13/21 14:00 Respiratory Rate 16 12/13/21 14:00 Blood Pressure 129/84 12/13/21 14:00 Pulse Oximetry (%) 99 12/13/21 14:00 MDM MDM Narrative Medical decision making narrative: Narrative: Elderly female started on prednisone because of low platelet count presents to the emerge department because of being shaky and weak. Differential diagnosis includes steroid reaction, hypoglycemia, electrolyte abnormality, anemia, urinary tract infection, pyelonephritis, sepsis, other White count was normal at 8.6 with a hemoglobin mildly low at 10.7. Platelet count was low at 14 though a month ago was 12 lactic acid level was 5.3 sodium was 121 potassium was 5.6 chloride was 87 bicarb was 19 BUN of 38 creatinine 1.8 glucose was 934 bilirubin 1.8 ammonia level was 32 which is normal beta hydroxybutyric was elevated at 0.61 Patient was bolused 1 L of normal saline and started on insulin drip. Case was discussed with Dr. Daily who accepted signout of the patient and will further manage. Hospitalist was called for admission but has not called back yet. serum labs: Lactic acid level high at 5.3. Sodium level low at 118. Part of this is due to the high glucose. Glucose level on serum was 934. I advised Dr. Daily of the high lactaic acid level. Lab Data Result diagrams: 12/13/21 05:00 12/13/21 05:00 Labs: Lab Results 12/08/21 12/08/21 12/08/21 Range/Units 14:05 14:33 14:40 WBC 8.6 (4.5-11.0) K/mcL RBC 3.60 (3.59-5.38) M/mcL Hgb 10.7 L (11.2-15.7) g/dL Hct 34.3 (34.1-44.9) % POC Hct 34.0 L (36-48) MCV 95.3 (80.0-100.0) fL MCH 29.7 (26.0-34.0) pg MCHC 31.2 (31.0-36.0) g/dL RDW 19.8 H (11.5-14.5) % Plt Count 14 L* (140-440) K/mcL MPV 13.6 H (7.4-10.4) fL Neut % (Auto) 95.9 H (38.0-78.0) % Lymph % (Auto) 2.3 L (15.5-49.0) % Lake % (Auto) 1.7 (1.0-12.0) % Eos % (Auto) 0 (0.0-7.0) % Baso % (Auto) 0.1 (0.0-2.0) % Lymph # (Auto) 0.20 L (1.50-4.80) K/mcL Lake # (Auto) 0.15 (0.10-0.90) K/mcL Eos # (Auto) 0 (0.00-0.70) K/mcL Baso # (Auto) 0.01 (0.00-0.30) K/mcL Absolute Neutrophils 8.28 H (1.80-8.00) K/mcL VBG Lactic Acid (0.5-2.0) mmol/L POC Sodium 121 L (133-145) Sodium (133-145) mmol/L POC Potassium 5.6 H (3.3-5.1) Potassium (3.3-5.1) mmol/L POC Chloride 87 L (96-108) Chloride (96-108) mmol/L Carbon Dioxide (22-30) mmol/L POC Total CO2 22.0 (22-30) Anion Gap (8.0-16.0) POC BUN 41 H (6-20) BUN (8-23) mg/dL Creatinine (0.6-1.1) mg/dL POC Creatinine 1.9 H (0.6-1.2) GFR Calculation Glucose (70-105) mg/dL POC Glucose > 700 H* (70-105) Calcium (8.6-10.4) mg/dL POC WB Ioniz Calcium 1.11 L (1.16-1.32) Total Bilirubin (0.1-1.0) mg/dL AST (<32) U/L ALT (<40) U/L Alkaline Phosphatase (39-117) U/L Ammonia (11-51) umol/L Total Protein (5.9-8.4) gm/dL Albumin (3.2-5.2) gm/dL Globulin (2.2-3.7) gm/dL Albumin/Globulin Ratio (1.0-2.3) Beta-Hydroxybutyrate (<0.27) mmol/L Urine Color Yellow Urine Appearance Clear (Clear) Urine pH 5.0 (5.0-9.0) Ur Specific [place] 1.018 (1.000-1.035) Urine Protein Neg (Negative) mg/dL Urine Glucose (UA) >=500 A (Negative) mg/dL Urine Ketones Neg (Negative) mg/dL Urine Occult Blood 0.20 (Negative) mg/dL Urine Nitrate Neg (Negative) Urine Bilirubin Neg (Negative) mg/dL Urine Urobilinogen Neg mg/dL Ur Leukocyte Esterase Neg (Negative) /uL Urine RBC 1 (0-3) /hpf Urine WBC 2 (0-4) /hpf Ur Squamous Epith Cells 0 (0-4) /hpf Ur Transition Epith Cell < 1 (0-2) /hpf Urine Bacteria None (0) /hpf Hyaline Casts 1 (0-2) /lph Urine Mucus Few A (None) /hpf Ur Culture Indicated? No 12/08/21 12/08/21 12/08/21 Range/Units 14:40 14:40 15:07 WBC (4.5-11.0) K/mcL RBC (3.59-5.38) M/mcL Hgb (11.2-15.7) g/dL Hct (34.1-44.9) % POC Hct (36-48) MCV (80.0-100.0) fL MCH (26.0-34.0) pg MCHC (31.0-36.0) g/dL RDW (11.5-14.5) % Plt Count (140-440) K/mcL MPV (7.4-10.4) fL Neut % (Auto) (38.0-78.0) % Lymph % (Auto) (15.5-49.0) % Lake % (Auto) (1.0-12.0) % Eos % (Auto) (0.0-7.0) % Baso % (Auto) (0.0-2.0) % Lymph # (Auto) (1.50-4.80) K/mcL Lake # (Auto) (0.10-0.90) K/mcL Eos # (Auto) (0.00-0.70) K/mcL Baso # (Auto) (0.00-0.30) K/mcL Absolute Neutrophils (1.80-8.00) K/mcL VBG Lactic Acid (0.5-2.0) mmol/L POC Sodium (133-145) Sodium 118 L* (133-145) mmol/L POC Potassium (3.3-5.1) Potassium 5.5 H (3.3-5.1) mmol/L POC Chloride (96-108) Chloride 83 L (96-108) mmol/L Carbon Dioxide 19 L (22-30) mmol/L POC Total CO2 (22-30) Anion Gap 16.0 (8.0-16.0) POC BUN (6-20) BUN 38 H (8-23) mg/dL Creatinine 1.8 H (0.6-1.1) mg/dL POC Creatinine (0.6-1.2) GFR Calculation 28 Glucose 934 H* (70-105) mg/dL POC Glucose (70-105) Calcium 8.7 (8.6-10.4) mg/dL POC WB Ioniz Calcium (1.16-1.32) Total Bilirubin 1.8 H (0.1-1.0) mg/dL AST 18 (<32) U/L ALT 28 (<40) U/L Alkaline Phosphatase 281 H (39-117) U/L Ammonia 32 (11-51) umol/L Total Protein 6.3 (5.9-8.4) gm/dL Albumin 3.2 (3.2-5.2) gm/dL Globulin 3.1 (2.2-3.7) gm/dL Albumin/Globulin Ratio 1.0 (1.0-2.3) Beta-Hydroxybutyrate 0.61 H (<0.27) mmol/L Urine Color Urine Appearance (Clear) Urine pH (5.0-9.0) Ur Specific [place] (1.000-1.035) Urine Protein (Negative) mg/dL Urine Glucose (UA) (Negative) mg/dL Urine Ketones (Negative) mg/dL Urine Occult Blood (Negative) mg/dL Urine Nitrate (Negative) Urine Bilirubin (Negative) mg/dL Urine Urobilinogen mg/dL Ur Leukocyte Esterase (Negative) /uL Urine RBC (0-3) /hpf Urine WBC (0-4) /hpf Ur Squamous Epith Cells (0-4) /hpf Ur Transition Epith Cell (0-2) /hpf Urine Bacteria (0) /hpf Hyaline Casts (0-2) /lph Urine Mucus (None) /hpf Ur Culture Indicated? 12/08/21 12/08/21 Range/Units 15:07 18:32 WBC (4.5-11.0) K/mcL RBC (3.59-5.38) M/mcL Hgb (11.2-15.7) g/dL Hct (34.1-44.9) % POC Hct (36-48) MCV (80.0-100.0) fL MCH (26.0-34.0) pg MCHC (31.0-36.0) g/dL RDW (11.5-14.5) % Plt Count (140-440) K/mcL MPV (7.4-10.4) fL Neut % (Auto) (38.0-78.0) % Lymph % (Auto) (15.5-49.0) % Lake % (Auto) (1.0-12.0) % Eos % (Auto) (0.0-7.0) % Baso % (Auto) (0.0-2.0) % Lymph # (Auto) (1.50-4.80) K/mcL [place] # (Auto) (0.10-0.90) K/mcL Eos # (Auto) (0.00-0.70) K/mcL Baso # (Auto) (0.00-0.30) K/mcL Absolute Neutrophils (1.80-8.00) K/mcL VBG Lactic Acid 5.3 H* 6.3 H* (0.5-2.0) mmol/L POC Sodium (133-145) Sodium (133-145) mmol/L POC Potassium (3.3-5.1) Potassium (3.3-5.1) mmol/L POC Chloride (96-108) Chloride (96-108) mmol/L Carbon Dioxide (22-30) mmol/L POC Total CO2 (22-30) Anion Gap (8.0-16.0) POC BUN (6-20) BUN (8-23) mg/dL Creatinine (0.6-1.1) mg/dL POC Creatinine (0.6-1.2) GFR Calculation Glucose (70-105) mg/dL POC Glucose (70-105) Calcium (8.6-10.4) mg/dL POC WB Ioniz Calcium (1.16-1.32) Total Bilirubin (0.1-1.0) mg/dL AST (<32) U/L ALT (<40) U/L Alkaline Phosphatase (39-117) U/L Ammonia (11-51) umol/L Total Protein (5.9-8.4) gm/dL Albumin (3.2-5.2) gm/dL Globulin (2.2-3.7) gm/dL Albumin/Globulin Ratio (1.0-2.3) Beta-Hydroxybutyrate (<0.27) mmol/L Urine Color Urine Appearance (Clear) Urine pH (5.0-9.0) Ur Specific [place] (1.000-1.035) Urine Protein (Negative) mg/dL Urine Glucose (UA) (Negative) mg/dL Urine Ketones (Negative) mg/dL Urine Occult Blood (Negative) mg/dL Urine Nitrate (Negative) Urine Bilirubin (Negative) mg/dL Urine Urobilinogen mg/dL Ur Leukocyte Esterase (Negative) /uL Urine RBC (0-3) /hpf Urine WBC (0-4) /hpf Ur Squamous Epith Cells (0-4) /hpf Ur Transition Epith Cell (0-2) /hpf Urine Bacteria (0) /hpf Hyaline Casts (0-2) /lph Urine Mucus (None) /hpf Ur Culture Indicated? Discharge Plan Patient/Caregiver Discharge Instructions Pt seen by RELATIONS MGR/PA only: No Clinical Impression: Generalized weakness, DKA (diabetic ketoacidosis) Activity: increase activity as tolerated Patient Disposition: Xfer As Inpt ([facility]) Condition: Fair Discharge Date/Time: 12/08/21 19:00
[2021-12-08 14:37] LABS: POC Blood Urea Nitrogen 41 (6-20); POC Calcium, Ionized 1.11 (1.16-1.32); POC Chloride 87 (96-108); POC Creatinine 1.9 (0.6-1.2); POC Glucose, Random > 700 (70-105); POC Potassium 5.6 (3.3-5.1); POC Sodium 121 (133-145)
[2021-12-08] MEDS ORDERED: 0.9 % SODIUM CHLORIDE 1,000 ML IV ONE (14:53)
[2021-12-08] MEDS ORDERED: INSULIN REGULAR, HUMAN 1 UNIT/0.01 ML UNIT IV ONE (14:53)
[2021-12-08 15:29] LABS: Basophils # (Auto) 0.01 K/mcL (0.00-0.30); Basophils % (Auto) 0.1 % (0.0-2.0); Eosinophils # (Auto) 0 K/mcL (0.00-0.70); Eosinophils % (Auto) 0 % (0.0-7.0); Hematocrit 34.3 % (34.1-44.9); Hemoglobin 10.7 g/dL (11.2-15.7); Lymphocytes % (Auto) 2.3 % (15.5-49.0); Mean Cell Volume 95.3 fL (80.0-100.0); Mean Corpuscular HGB Conc 31.2 g/dL (31.0-36.0); Mean Platelet Volume 13.6 fL (7.4-10.4); Monocytes # (Auto) 0.15 K/mcL (0.10-0.90); Monocytes % (Auto) 1.7 % (1.0-12.0); Neutrophils % (Auto) 95.9 % (38.0-78.0); Platelet Count 14 K/mcL (140-440); Red Cell Distribution Width 19.8 % (11.5-14.5); WBC 8.6 K/mcL (4.5-11.0)
[2021-12-08] MEDS ORDERED: INSULIN REGULAR, HUMAN 50 UNIT in 0.9 % SODIUM CHLORIDE 99.5 ML IV ONE (15:29)
[2021-12-08 15:41] LABS: ALT/SGPT 28 U/L (<40); AST/SGOT 18 U/L (<32); Albumin 3.2 gm/dL (3.2-5.2); Alkaline Phosphatase 281 U/L (39-117); Bilirubin,Total 1.8 mg/dL (0.1-1.0); Blood Urea Nitrogen 38 mg/dL (8-23); Calcium 8.7 mg/dL (8.6-10.4); Carbon Dioxide 19 mmol/L (22-30); Chloride 83 mmol/L (96-108); Globulin 3.1 gm/dL (2.2-3.7); Glomerular Filtration Rate 28; Glucose 934 mg/dL (70-105)
--- NOTE | 2021-12-08 16:54 | Emergency Department Note ---
HPI General Chief complaint: Blood Sugar Problem Stated complaint: blood sugar > 700, confusion Time Seen by Provider: 12/08/21 14:26 Source: patient and family (And daughter) Mode of arrival: ambulatory Limitations: no limitations History of Present Illness HPI Narrative: Narrative: I received this patient in sign out from Dr Martinez, for full details please see his H&P. In brief she p/w generalized weakness and was found to be in apparent DKA w/ elevated blood sugar, elevated ketones, . She was started on IVF and IV insulin. Plan was for admission to the hospitalist who has not yet called back. While waiting for a call back I was alerted that her lactate is elevated at 5. Related Data Home Medications Medication Instructions Recorded Confirmed pantoprazole 20 mg tablet,delayed 20 mg PO BID tab 11/14/19 11/12/21 release polyethylene glycol 3350 17 17 g PO BID g 05/06/21 11/12/21 gram/dose oral powder (Miralax) rifaximin 550 mg tablet 550 mg PO BID tab 05/06/21 11/12/21 spironolactone 100 mg tablet 100 mg PO QDAY tab 05/06/21 11/12/21 (Aldactone) torsemide 20 mg tablet 20 mg PO QDAY tab 05/06/21 11/12/21 lactulose 10 gram/15 mL oral 10 g PO TID ml 06/21/21 11/12/21 solution Previous Rx's Medication Instructions Recorded ondansetron 4 mg disintegrating 4 mg PO Q8H PRN #7 tab 03/12/21 tablet tramadol 50 mg tablet 50 mg PO Q6H PRN #30 tab 07/21/21 levothyroxine 88 mcg tablet 88 mcg PO QDAY #90 tab 09/21/21 cholecalciferol (vitamin D3) 125 125 mcg PO QDAY #90 tab 10/13/21 mcg (5,000 unit) tablet nystatin 100,000 unit/mL oral 1 ml PO QDAY 7 Days #200 ml 11/12/21 suspension Allergies Allergy/AdvReac Type Severity Reaction Status Date / Time hydrochlorothiazide AdvReac Mild hyponatremi Verified 12/08/21 14:25 a hydrocodone AdvReac Mild Nausea Verified 12/08/21 14:25 Hydroxychloroquine AdvReac Mild Nausea Verified 12/08/21 14:25 [From Plaquenil] Review of Systems ROS ROS Narrative: Narrative: Constitutional: Denies fever Eyes: Reports vision change (Blurry) ENT ED: Reports throat pain; Denies ear pain or rhinorrhea Cardiovascular: Denies chest pain Respiratory: Reports shortness of breath (Remote) Gastrointestinal: Reports nausea; Denies vomiting Genitourinary: Reports dysuria (Has UTI) Musculoskeletal: Denies back pain Integumentary: Denies rash Neurological: Denies headache Psychiatric: Denies depression [facility] Narrative Patient History Narrative: Narrative: Medical/Surgical/Family History All Active Problems (Updated 12/08/21 @ 17:06 by Anatoly Daily MD) Abdominal pain, RUQ (Chronic) Ascites (Chronic) Cirrhosis of liver (Chronic) Connective tissue disease (Chronic) Elevated serum glutamic pyruvic transaminase (SGPT) level (Chronic) Esophageal varices (Chronic 09/26/13) Gastroesophageal reflux (Chronic) Hernia, hiatal (Chronic) Hypertension, essential, benign (Chronic) Hypothyroidism (Chronic) Osteoarthritis (Chronic) Polyarthropathy, inflammatory (Chronic) Portal hypertension (Chronic) Sjogren's syndrome (Chronic) Splenomegaly (Chronic) Thyroid nodule (Chronic) Vertigo (Chronic) Portal vein thrombosis (Chronic) Urinary tract infection (Chronic) Systemic lupus erythematosus (Chronic) Iron deficiency anemia (Chronic) Edema (Chronic) Insomnia (Chronic) Dysphagia (Chronic) Colonic adenoma (Chronic) Osteoporosis (Chronic) Hemolytic anemia (Chronic) Lower back pain (Chronic) Fatigue (Chronic) Parotid swelling (Chronic) Back pain (Chronic) Sicca syndrome (Chronic) Acquired pancytopenia (Chronic) Hemorrhoid (Chronic) Adenomatous colon polyp (Chronic ~2008) IBS (irritable bowel syndrome) (Chronic) Vitamin D deficiency (Chronic) Anemia (Chronic) Confusion (Acute) Stage 1 acute kidney injury (Acute) Delirium (Acute) Other secondary thrombocytopenia (Acute) Anemia, normocytic normochromic (Acute) Hypokalemia (Acute) Chronic kidney disease (CKD) stage G4/A1, severely decreased glomerular filtration rate (GFR) between 15-29 mL/min/1.73 square meter and albuminuria creatinine ratio less than 30 mg/g (Acute) Localized edema due to fluid overload (Chronic) Medicare annual wellness visit, subsequent (Acute) Acute ITP (Acute) Generalized weakness (Acute) DKA (diabetic ketoacidosis) (Acute) Medical History Abdominal bloating Abdominal pain, RUQ Acquired pancytopenia Acute ITP Adenomatous colon polyp (~2008) Anemia Ascites H/O (12/11/2014-Karen) Back pain Blood in stool Melenotic Stool (05/08/14-Dr Jones) Body mass index (BMI) 35 or more 37.3 Breast cancer Status post right partial mastectomies, radiation, hormonal therapy Bronchitis (09/25/14) Cirrhosis of liver ? autoimmune etiology Colonic adenoma 2008 Confusion Conjunctivitis (09/25/14) OD Conjunctivitis Connective tissue disease Cough Dehydration Dry eyes Dry mouth Dysphagia Edema Elevated liver enzymes Mild Elevated serum glutamic pyruvic transaminase (SGPT) level Encounter for long-term (current) use of high-risk medication Epistaxis Esophageal varices (09/26/13) Esophagitis, reflux Fatigue Gastric erosion (05/27/14-Dr Jones) Gastric polyps Bleeding gastric polyps found on EGD in August 2019 We have not received the pathology report We will request those records Gastritis and gastroduodenitis Gastroesophageal reflux Hand pain Hemolysis Hemolytic anemia Dr. Mendoza, but it looks like she has not seen him for at least a year. We will monitor CBC for stability. 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 Benlysta Lower back pain Medicare annual wellness visit, subsequent Medication side effect lower extremity edema likely secondary to amlodipine Nasal discharge Daily bloody nasal discharge Nausea & vomiting Night sweats intermittently past 6 months Osteoarthritis Osteoporosis not treated, can't take Fosamax d/t esophageal varices Pancytopenia H/O Parotid swelling Pathological fracture, right humerus, sequela PND (post-nasal drip) Bloody Polyarthropathy, inflammatory Portal hypertension H/o Portal vein thrombosis Resolved and off of Lovenox Reactive airway disease (09/25/14) Rectal bleeding Renal failure Seborrheic keratoses Sutures are removed Sicca syndrome Sicca syndrome with keratoconjunctivitis Sjogren's syndrome Skin lesion Left forearm measuring 5 x 6 mm by calipers. Excised. Splenomegaly Stricture of right ureter right. UVJ. Systemic lupus erythematosus Thrombocytopenia Thyroid nodule 2007 Stable and benign Upper GI bleed Secondary to gastritis UTI (urinary tract infection) Vertigo BPPV Vitamin D deficiency Wrist pain Left Surgical History Fracture, humerus 05/08/15 ORIF History of biopsy (01/23/14) Liver History of X3 History of carpal tunnel release X2 History of cholecystectomy (01/27/14) History of colonoscopy (02/15/17) 01/03/13 - Uncomplicated internal hemorrhoids, few diverticuli. 10/12/15 - hemorrhoids. Dr. Jones. 02/15/17 - Hemorrhoids-7 year follow up. History of endoscopy Variceal Banding Multiple times by Dr. Orozco. History of esophagogastroduodenoscopy (01/06/17) 09/11/19 - Dr. Sunny Story 10/02/14 - Dr. Jones 06/04/15 Dr Jones - esophageal varices were banded. Gastritis. Gastric ulcer. Yeast. 09/04/15 Dr Jones - varices. H. pylori. Gastritis. 01/06/17-Dr. Jones - varices. gastritis. One year F/U. 01/03/18-Dr Jones-gastritis, scarring, small varices, possible esophageal dysmotility. 05/24/18-Dr Jones-upper GI bleed secondary to gastritis. Esophageal varices. Esophagitis. History of hysterectomy MARIA DOLORES/BSO History of knee surgery X5 History of liver biopsy (01/27/14) History of lumpectomy of right breast 2005 And sentinel node biopsy followed by radiation. History of partial mastectomy (~2005) History of right breast biopsy 03/2006 History of surgery Gastric Varices 01/2014, 02/2014, 03/2014, 04/17 Dr. Jones History of thyroid surgery tumor removal History of thyroidectomy (~1979) Status post cataract extraction of both eyes with insertion of intraocular lens Remote Family History Mother Chronic Kidney Disease Unknown Diabetes mellitus Motor vehicle accident Father Family history of arthritis Cardiac disease Essential hypertension Malignant neoplasm Lung cancer Heart disease Type 2 diabetes mellitus Sister Cardiac disease Rheumatic fever Brother Rheumatic fever Cerebrovascular accident Prostate cancer Family/Other Family history of arthritis Rheumatoid arthritis Social History Smoking Status: Never smoker Alcohol Intake Frequency: does not drink Substance Use: does not use Exam Narrative Narrative: Narrative: General Limitations: no limitations Course Vital Signs Vital signs: Vital Signs Temperature 98.1 F 12/08/21 14:24 Pulse Rate 101 H 12/08/21 14:24 Respiratory Rate 16 12/08/21 14:24 Blood Pressure 177/70 12/08/21 14:24 Pulse Oximetry (%) 96 12/08/21 14:24 Temperature 98.1 F 12/08/21 14:24 Pulse Rate 97 H 12/08/21 17:01 Respiratory Rate 16 12/08/21 14:24 Blood Pressure 153/59 12/08/21 17:01 Pulse Oximetry (%) 97 12/08/21 17:01 MDM MDM Narrative Medical decision making narrative: Narrative: 71 yo F w/ h/o Lupus, HTN, Sjogrens, CKD, ITP, p/w weakness and is found to be in DKA. She appears to be a new onset diabetic. Dr Martinez has started her on IVF and IV insulin. After sign out, lactate resulted at 5. I added on a UA noting her recent h/o UTI, and this is pending. Lactate could simply be driven by dehydration. Will hold off on abx at this time as there was no suspicion for an infectious process. Could also be 2/2 her chronic liver disease. At 17:12 I d/w the hospitalist who accepted pt for admission. Lab Data Result diagrams: 12/08/21 14:40 12/08/21 14:40 Labs: Lab Results 12/08/21 12/08/21 12/08/21 Range/Units 14:33 14:40 14:40 WBC 8.6 (4.5-11.0) K/mcL RBC 3.60 (3.59-5.38) M/mcL Hgb 10.7 L (11.2-15.7) g/dL Hct 34.3 (34.1-44.9) % POC Hct 34.0 L (36-48) MCV 95.3 (80.0-100.0) fL MCH 29.7 (26.0-34.0) pg MCHC 31.2 (31.0-36.0) g/dL RDW 19.8 H (11.5-14.5) % Plt Count 14 L* (140-440) K/mcL MPV 13.6 H (7.4-10.4) fL Neut % (Auto) 95.9 H (38.0-78.0) % Lymph % (Auto) 2.3 L (15.5-49.0) % [place] % (Auto) 1.7 (1.0-12.0) % Eos % (Auto) 0 (0.0-7.0) % Baso % (Auto) 0.1 (0.0-2.0) % Lymph # (Auto) 0.20 L (1.50-4.80) K/mcL [place] # (Auto) 0.15 (0.10-0.90) K/mcL Eos # (Auto) 0 (0.00-0.70) K/mcL Baso # (Auto) 0.01 (0.00-0.30) K/mcL Absolute Neutrophils 8.28 H (1.80-8.00) K/mcL VBG Lactic Acid (0.5-2.0) mmol/L POC Sodium 121 L (133-145) Sodium 118 L* (133-145) mmol/L POC Potassium 5.6 H (3.3-5.1) Potassium 5.5 H (3.3-5.1) mmol/L POC Chloride 87 L (96-108) Chloride 83 L (96-108) mmol/L Carbon Dioxide 19 L (22-30) mmol/L POC Total CO2 22.0 (22-30) Anion Gap 16.0 (8.0-16.0) POC BUN 41 H (6-20) BUN 38 H (8-23) mg/dL Creatinine 1.8 H (0.6-1.1) mg/dL POC Creatinine 1.9 H (0.6-1.2) GFR Calculation 28 Glucose 934 H* (70-105) mg/dL POC Glucose > 700 H* (70-105) Calcium 8.7 (8.6-10.4) mg/dL POC WB Ioniz Calcium 1.11 L (1.16-1.32) Total Bilirubin 1.8 H (0.1-1.0) mg/dL AST 18 (<32) U/L ALT 28 (<40) U/L Alkaline Phosphatase 281 H (39-117) U/L Ammonia (11-51) umol/L Total Protein 6.3 (5.9-8.4) gm/dL Albumin 3.2 (3.2-5.2) gm/dL Globulin 3.1 (2.2-3.7) gm/dL Albumin/Globulin Ratio 1.0 (1.0-2.3) Beta-Hydroxybutyrate (<0.27) mmol/L 12/08/21 12/08/21 12/08/21 Range/Units 14:40 15:07 15:07 WBC (4.5-11.0) K/mcL RBC (3.59-5.38) M/mcL Hgb (11.2-15.7) g/dL Hct (34.1-44.9) % POC Hct (36-48) MCV (80.0-100.0) fL MCH (26.0-34.0) pg MCHC (31.0-36.0) g/dL RDW (11.5-14.5) % Plt Count (140-440) K/mcL MPV (7.4-10.4) fL Neut % (Auto) (38.0-78.0) % Lymph % (Auto) (15.5-49.0) % [place] % (Auto) (1.0-12.0) % Eos % (Auto) (0.0-7.0) % Baso % (Auto) (0.0-2.0) % Lymph # (Auto) (1.50-4.80) K/mcL [place] # (Auto) (0.10-0.90) K/mcL Eos # (Auto) (0.00-0.70) K/mcL Baso # (Auto) (0.00-0.30) K/mcL Absolute Neutrophils (1.80-8.00) K/mcL VBG Lactic Acid 5.3 H* (0.5-2.0) mmol/L POC Sodium (133-145) Sodium (133-145) mmol/L POC Potassium (3.3-5.1) Potassium (3.3-5.1) mmol/L POC Chloride (96-108) Chloride (96-108) mmol/L Carbon Dioxide (22-30) mmol/L POC Total CO2 (22-30) Anion Gap (8.0-16.0) POC BUN (6-20) BUN (8-23) mg/dL Creatinine (0.6-1.1) mg/dL POC Creatinine (0.6-1.2) GFR Calculation Glucose (70-105) mg/dL POC Glucose (70-105) Calcium (8.6-10.4) mg/dL POC WB Ioniz Calcium (1.16-1.32) Total Bilirubin (0.1-1.0) mg/dL AST (<32) U/L ALT (<40) U/L Alkaline Phosphatase (39-117) U/L Ammonia 32 (11-51) umol/L Total Protein (5.9-8.4) gm/dL Albumin (3.2-5.2) gm/dL Globulin (2.2-3.7) gm/dL Albumin/Globulin Ratio (1.0-2.3) Beta-Hydroxybutyrate 0.61 H (<0.27) mmol/L Discharge Plan Patient/Caregiver Discharge Instructions Pt seen by [employer]ER/PA only: No Clinical Impression: Generalized weakness, DKA (diabetic ketoacidosis) Patient Disposition: Xfer As Inpt ([facility]) Condition: Fair Follow up with: Brad Rubio MD [Primary Care Provider] - Prescriptions: No Action tramadol 50 mg tablet 50 mg PO Q6H PRN (Reason: pain) Qty: 30 0RF levothyroxine 88 mcg tablet 88 mcg PO QDAY Qty: 90 1RF cholecalciferol (vitamin D3) 125 mcg (5,000 unit) tablet 125 mcg PO QDAY Qty: 90 3RF nystatin 100,000 unit/mL suspension 1 ml PO QDAY 7 Days Qty: 200 0RF Rx Instructions: swish for several minutes and swallow 5 mL/1 cup four times daily for seven days. pantoprazole 20 mg tablet,delayed release (DR/EC) 20 mg PO BID 0RF spironolactone [Aldactone] 100 mg tablet 100 mg PO QDAY 0RF torsemide 20 mg tablet 20 mg PO QDAY 0RF Xifaxan 550 mg tablet 550 mg PO BID 0RF polyethylene glycol 3350 [Miralax] 17 gram/dose powder 17 g PO BID 0RF lactulose 10 gram/15 mL solution 10 g PO TID 0RF ondansetron 4 mg tablet,disintegrating 4 mg PO Q8H PRN (Reason: nausea and vomiting) Qty: 7 0RF
[2021-12-08] MEDS ORDERED: PROMETHAZINE 25 MG/ML VIAL IV PRN (17:59)
[2021-12-08] MEDS ORDERED: SENNOSIDES 1 TABLET PO PRN (17:59)
[2021-12-08] MEDS ORDERED: METOCLOPRAMIDE 10 MG/2 ML VIAL IV PRN (17:59)
[2021-12-08] MEDS ORDERED: LORazepam 2 MG/ML VIAL IV PRN (17:59)
[2021-12-08] MEDS ORDERED: MAGNESIUM HYDROXIDE 30 ML ORAL.SUSP PO PRN (17:59)
[2021-12-08] MEDS ORDERED: IPRATROPIUM/ALBUTEROL 3 ML AMPUL.NEB NEB PRN (17:59)
[2021-12-08] MEDS ORDERED: BISACODYL 10 MG SUPP.RECT PR PRN (17:59)
[2021-12-08 18:22] LABS: Appearance,Urine CLEAR (Clear); Bilirubin,Urine NEG (Negative); Color,Urine YELLOW; Culture Indicated,Urine No; Glucose,Urine (UA) >=500 mg/dL (Negative); Ketones,Urine NEG (Negative); Leukocyte Esterase,Urine NEG /uL (Negative); Mucus,Urine FEW /hpf; Nitrate,Urine NEG (Negative); Protein,Urine NEG (Negative); Specific Gravity,Urine 1.018 (1.000-1.035); Urine Hyaline Cast 1 /lph (0-2); Urine RBC 1 /hpf (0-3); Urine Squamous Epithelial Cell 0 /hpf (0-4); Urine Transitional Epi Cells < 1 /hpf (0-2); Urine WBC 2 /hpf (0-4); Urobilinogen,Urine NEG
--- NOTE | 2021-12-08 19:16 | Internal Med History&Physical ---
HPI History of Present Illness Patient information: Note initiated : 12/08/21 at 7:16 pm Service Date, if different from initiated Date: [] Patient: Addis Plascencia 71 y/o F admitted on 12/08/21 for blood sugar > 700, confusion. Chief Complaint: [] History of present illness: Ms. Plascencia is a 71 year old F This is a 71-year-old female with a history of nonalcoholic liver cirrhosis-reportedly autoimmune, previous history of ascites hepatic encephalopathy portal hypertension Lupus nephritis, possible ITP with a platelet count always around 20,000 History of variceal banding in 2014 no further recurrence. Patient recently diagnosed with a possible ITP in October 2021 and was started on prednisone 80 mg and he has been on titration right now on 40 mg patient's developing weakness tiredness and was brought to the ER and her blood glucose was 900 no evidence of DKA and was started on insulin drip and admitted to our facility. Patient also had some urine symptoms lower abdominal pain and started on ceftriaxone for UTI Review of systems Constitutional: Generalized weakness Eyes: Chronic vision loss and dry eyes Cardiovascular: no chest pain, no palpitations Respiratory: no cough or dyspnea Gastrointestinal: Distended no acute change Genitourinary: no dysuria or difficulty voiding Musculoskeletal: no arthralgia or myalgia Integumentary: Multiple skin lesions Neurological: no focal weakness or numbness Psychiatric: no anxiety or depression Physical exam Head: No bruises, normal-appearing nontraumatic Eyes: Vision loss chronic Neck: full ROM Respiratory: no respiratory distress. Cardiovascular: normal rate and rhythm, S1, S2. GI/Abdominal: Soft, distended bowel sounds are normal Extremities: full range of motion, nontender. Neurological: CN II-XII intact, intact motor, intact sensation. Psychiatric: normal mood. Skin: Multiple petechiae ecchymosis PFSH PFSH All Active Problems (Updated 12/08/21 @ 17:06 by Anatoly Daily MD) Abdominal pain, RUQ (Chronic) Ascites (Chronic) Cirrhosis of liver (Chronic) Connective tissue disease (Chronic) Elevated serum glutamic pyruvic transaminase (SGPT) level (Chronic) Esophageal varices (Chronic 09/26/13) Gastroesophageal reflux (Chronic) Hernia, hiatal (Chronic) Hypertension, essential, benign (Chronic) Hypothyroidism (Chronic) Osteoarthritis (Chronic) Polyarthropathy, inflammatory (Chronic) Portal hypertension (Chronic) Sjogren's syndrome (Chronic) Splenomegaly (Chronic) Thyroid nodule (Chronic) Vertigo (Chronic) Portal vein thrombosis (Chronic) Urinary tract infection (Chronic) Systemic lupus erythematosus (Chronic) Iron deficiency anemia (Chronic) Edema (Chronic) Insomnia (Chronic) Dysphagia (Chronic) Colonic adenoma (Chronic) Osteoporosis (Chronic) Hemolytic anemia (Chronic) Lower back pain (Chronic) Fatigue (Chronic) Parotid swelling (Chronic) Back pain (Chronic) Sicca syndrome (Chronic) Acquired pancytopenia (Chronic) Hemorrhoid (Chronic) Adenomatous colon polyp (Chronic ~2008) IBS (irritable bowel syndrome) (Chronic) Vitamin D deficiency (Chronic) Anemia (Chronic) Confusion (Acute) Stage 1 acute kidney injury (Acute) Delirium (Acute) Other secondary thrombocytopenia (Acute) Anemia, normocytic normochromic (Acute) Hypokalemia (Acute) Chronic kidney disease (CKD) stage G4/A1, severely decreased glomerular filtration rate (GFR) between 15-29 mL/min/1.73 square meter and albuminuria creatinine ratio less than 30 mg/g (Acute) Localized edema due to fluid overload (Chronic) Medicare annual wellness visit, subsequent (Acute) Acute ITP (Acute) Generalized weakness (Acute) DKA (diabetic ketoacidosis) (Acute) Medical History Abdominal bloating Abdominal pain, RUQ Acquired pancytopenia Acute ITP Adenomatous colon polyp (~2008) Anemia Ascites H/O (12/11/2014-Karen) Back pain Blood in stool Melenotic Stool (05/08/14-Dr Jones) Body mass index (BMI) 35 or more 37.3 Breast cancer Status post right partial mastectomies, radiation, hormonal therapy Bronchitis (09/25/14) Cirrhosis of liver ? autoimmune etiology Colonic adenoma 2008 Confusion Conjunctivitis (09/25/14) OD Conjunctivitis Connective tissue disease Cough Dehydration Dry eyes Dry mouth Dysphagia Edema Elevated liver enzymes Mild Elevated serum glutamic pyruvic transaminase (SGPT) level Encounter for long-term (current) use of high-risk medication Epistaxis Esophageal varices (09/26/13) Esophagitis, reflux Fatigue Gastric erosion (05/27/14-Dr Jones) Gastric polyps Bleeding gastric polyps found on EGD in August 2019 We have not received the pathology report We will request those records Gastritis and gastroduodenitis Gastroesophageal reflux Hand pain Hemolysis Hemolytic anemia Dr. Mendoza, but it looks like she has not seen him for at least a year. We will monitor CBC for stability. Hemorrhoid Hepatic fibrosis Hernia, hiatal History of colonic polyps 2008 [place]ona History of mammogram (01/25/16) Hypertension, essential, benign Hyponatremia Hypothyroidism IBS (irritable bowel syndrome) Insomnia Iron deficiency anemia Joint pain Leukopenia Lightheaded Hgb 9.6 (12.3) Localized edema due to fluid overload senior care use of drug Benlysta Lower back pain Medicare annual wellness visit, subsequent Medication side effect lower extremity edema likely secondary to amlodipine Nasal discharge Daily bloody nasal discharge Nausea & vomiting Night sweats intermittently past 6 months Osteoarthritis Osteoporosis not treated, can't take Fosamax d/t esophageal varices Pancytopenia H/O Parotid swelling Pathological fracture, right humerus, sequela PND (post-nasal drip) Bloody Polyarthropathy, inflammatory Portal hypertension H/o Portal vein thrombosis Resolved and off of Lovenox Reactive airway disease (09/25/14) Rectal bleeding Renal failure Seborrheic keratoses Sutures are removed Sicca syndrome Sicca syndrome with keratoconjunctivitis Sjogren's syndrome Skin lesion Left forearm measuring 5 x 6 mm by calipers. Excised. Splenomegaly Stricture of right ureter right. UVJ. Systemic lupus erythematosus Thrombocytopenia Thyroid nodule 2007 Stable and benign Upper GI bleed Secondary to gastritis UTI (urinary tract infection) Vertigo BPPV Vitamin D deficiency Wrist pain Left Surgical History Fracture, humerus 05/08/15 [facility] History of biopsy (01/23/14) Liver History of X3 History of carpal tunnel release X2 History of cholecystectomy (01/27/14) History of colonoscopy (02/15/17) 01/03/13 - Uncomplicated internal hemorrhoids, few diverticuli. 10/12/15 - hemorrhoids. Dr. Jones. 02/15/17 - Hemorrhoids-7 year follow up. History of endoscopy Variceal Banding Multiple times by Dr. Orozco. History of esophagogastroduodenoscopy (01/06/17) 09/11/19 - Dr. Sunny Story 10/02/14 - Dr. Jones 06/04/15 Dr Jones - esophageal varices were banded. Gastritis. Gastric ulcer. Yeast. 09/04/15 Dr Jones - varices. H. pylori. Gastritis. 01/06/17-Dr. Jones - varices. gastritis. One year F/U. 01/03/18-Dr Jones-gastritis, scarring, small varices, possible esophageal dysmotility. 05/24/18-Dr Jones-upper GI bleed secondary to gastritis. Esophageal varices. Esophagitis. History of hysterectomy MARIA DOLORES/BSO History of knee surgery X5 History of liver biopsy (01/27/14) History of lumpectomy of right breast 2005 And sentinel node biopsy followed by radiation. History of partial mastectomy (~2005) History of right breast biopsy 03/2006 History of surgery Gastric Varices 01/2014, 02/2014, 03/2014, 04/17 Dr. Jones History of thyroid surgery tumor removal History of thyroidectomy (~1979) Status post cataract extraction of both eyes with insertion of intraocular lens Remote Family History Mother Chronic Kidney Disease Unknown Diabetes mellitus Motor vehicle accident Father Family history of arthritis Cardiac disease Essential hypertension Malignant neoplasm Lung cancer Heart disease Type 2 diabetes mellitus Sister Cardiac disease Rheumatic fever Brother Rheumatic fever Cerebrovascular accident Prostate cancer Family/Other Family history of arthritis Rheumatoid arthritis Social History household members: spouse housing: house lives independently: Yes marital status: education level: college 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 other: 3 children well-balanced diet: daily or most days physical activity: walking frequency: 3-4 times per week smoking status: Never smoker alcohol intake frequency: does not drink substance use type: does not use MEDS/ALLERGIES Home Medications and Allergies Home Medications Medication Instructions Recorded Confirmed Type pantoprazole 20 mg tablet,delayed 20 mg PO BIDAC tab 11/14/19 12/08/21 History release rifaximin 550 mg tablet 550 mg PO BID tab 05/06/21 12/08/21 History spironolactone 100 mg tablet 100 mg PO QDAY tab 05/06/21 12/08/21 History (Aldactone) torsemide 20 mg tablet 20 mg PO QDAY tab 05/06/21 12/08/21 History lactulose 10 gram/15 mL oral 10 g PO TID ml 06/21/21 12/08/21 History solution cholecalciferol (vitamin D3) 125 125 mcg PO QDAY #90 tab 10/13/21 12/08/21 Rx mcg (5,000 unit) tablet levothyroxine 88 mcg tablet 88 mcg PO ACB 12/08/21 12/08/21 History ondansetron 4 mg disintegrating 4 mg PO Q8HP PRN 12/08/21 12/08/21 History tablet prednisone 20 mg tablet 2 tab PO QDAY 12/08/21 12/08/21 History Allergies Allergy/AdvReac Type Severity Reaction Status Date / Time hydrochlorothiazide AdvReac Mild hyponatremi Verified 12/08/21 14:25 a hydrocodone AdvReac Mild Nausea Verified 12/08/21 14:25 Hydroxychloroquine AdvReac Mild Nausea Verified 12/08/21 14:25 [From Plaquenil] EXAM Constitutional Vitals: Temp Pulse Resp BP Pulse Ox 98.1 F 99 H 16 164/50 100 12/08/21 14:24 12/08/21 18:31 12/08/21 14:24 12/08/21 18:31 12/08/21 18:31 DATA Data Completed and Pending Labs: Labs from last 24 hours 12/08/21 12/08/21 12/08/21 18:32 15:07 15:07 WBC RBC Hgb Hct POC Hct MCV MCH MCHC RDW Plt Count MPV Neut % (Auto) Lymph % (Auto) Maries % (Auto) Eos % (Auto) Baso % (Auto) Lymph # (Auto) Maries # (Auto) Eos # (Auto) Baso # (Auto) Absolute Neutrophils VBG Lactic Acid Pending 5.3 H* POC Sodium Sodium POC Potassium Potassium POC Chloride Chloride Carbon Dioxide POC Total CO2 Anion Gap POC BUN BUN Creatinine POC Creatinine GFR Calculation Glucose POC Glucose Calcium POC WB Ioniz Calcium Total Bilirubin AST ALT Alkaline Phosphatase Ammonia 32 Total Protein Albumin Globulin Albumin/Globulin Ratio Beta-Hydroxybutyrate Urine Color Urine Appearance Urine pH Ur Specific [place] Urine Protein Urine Glucose (UA) Urine Ketones Urine Occult Blood Urine Nitrate Urine Bilirubin Urine Urobilinogen Ur Leukocyte Esterase Urine RBC Urine WBC Ur Squamous Epith Cells Ur Transition Epith Cell Urine Bacteria Hyaline Casts Urine Mucus Ur Culture Indicated? 12/08/21 12/08/21 12/08/21 14:40 14:40 14:40 WBC 8.6 RBC 3.60 Hgb 10.7 L Hct 34.3 POC Hct MCV 95.3 MCH 29.7 MCHC 31.2 RDW 19.8 H Plt Count 14 L* MPV 13.6 H Neut % (Auto) 95.9 H Lymph % (Auto) 2.3 L Maries % (Auto) 1.7 Eos % (Auto) 0 Baso % (Auto) 0.1 Lymph # (Auto) 0.20 L Maries # (Auto) 0.15 Eos # (Auto) 0 Baso # (Auto) 0.01 Absolute Neutrophils 8.28 H VBG Lactic Acid POC Sodium Sodium 118 L* POC Potassium Potassium 5.5 H POC Chloride Chloride 83 L Carbon Dioxide 19 L POC Total CO2 Anion Gap 16.0 POC BUN BUN 38 H Creatinine 1.8 H POC Creatinine GFR Calculation 28 Glucose 934 H* POC Glucose Calcium 8.7 POC WB Ioniz Calcium Total Bilirubin 1.8 H AST 18 ALT 28 Alkaline Phosphatase 281 H Ammonia Total Protein 6.3 Albumin 3.2 Globulin 3.1 Albumin/Globulin Ratio 1.0 Beta-Hydroxybutyrate 0.61 H Urine Color Urine Appearance Urine pH Ur Specific [place] Urine Protein Urine Glucose (UA) Urine Ketones Urine Occult Blood Urine Nitrate Urine Bilirubin Urine Urobilinogen Ur Leukocyte Esterase Urine RBC Urine WBC Ur Squamous Epith Cells Ur Transition Epith Cell Urine Bacteria Hyaline Casts Urine Mucus Ur Culture Indicated? 12/08/21 12/08/21 14:33 14:05 WBC RBC Hgb Hct POC Hct 34.0 L MCV MCH MCHC RDW Plt Count MPV Neut % (Auto) Lymph % (Auto) Maries % (Auto) Eos % (Auto) Baso % (Auto) Lymph # (Auto) Maries # (Auto) Eos # (Auto) Baso # (Auto) Absolute Neutrophils VBG Lactic Acid POC Sodium 121 L Sodium POC Potassium 5.6 H Potassium POC Chloride 87 L Chloride Carbon Dioxide POC Total CO2 22.0 Anion Gap POC BUN 41 H BUN Creatinine POC Creatinine 1.9 H GFR Calculation Glucose POC Glucose > 700 H* Calcium POC WB Ioniz Calcium 1.11 L Total Bilirubin AST ALT Alkaline Phosphatase Ammonia Total Protein Albumin Globulin Albumin/Globulin Ratio Beta-Hydroxybutyrate Urine Color Yellow Urine Appearance Clear Urine pH 5.0 Ur Specific [place] 1.018 Urine Protein Neg Urine Glucose (UA) >=500 A Urine Ketones Neg Urine Occult Blood 0.20 Urine Nitrate Neg Urine Bilirubin Neg Urine Urobilinogen Neg Ur Leukocyte Esterase Neg Urine RBC 1 Urine WBC 2 Ur Squamous Epith Cells 0 Ur Transition Epith Cell < 1 Urine Bacteria None Hyaline Casts 1 Urine Mucus Few A Ur Culture Indicated? No A/P Narrative Plan of Treatment: Hyperosmolar hyperglycemia New type 2 diabetes Patient with a history of multiple autoimmune disorders lupus, Sjogren's syndrome and been on chronic steroids 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 History of COVID infection Unvaccinated Present with a blood glucose of more than 900 no significant acidosis no anion gap Patient was started on insulin drip and admitted to the floor Plan Continue insulin drip titrate the drip according to the protocol We will transition her to long-acting insulin and sliding scale Patient is on steroids prednisone 40 mg on titration dose Managed by rheumatology Diabetic education Acute renal failure CKD stage III Continue IV hydration and follow-up kidney function If it is not improving will obtain ultrasound of the kidney Critical thrombocytopenia Probably a combination of ITP and liver cirrhosis Patient was seen by heme-onc specialist Dr. Burgos at [facility] and started the patient on prednisone Further recommendations to titrate the prednisone patient for platelet always been less than 20,000 and the highest seen was 23,000 No active bleeding history Platelet transfusion did not improve her platelet count previously and will monitor if she is showing any signs of bleeding will consider urgent platelet transfusion Nonalcoholic liver cirrhosis Portal hypertension no reported history of varices Critical thrombocytopenia Reportedly autoimmune not verified History of ascites Autoimmune disease Systemic lupus disease Sjogren's syndrome Possible ITP Followed by rheumatology and hematology on prednisone titration on 40 mg for this week and then 20 mg plan is to eventually stop as it is not helping her platelet levels Essential hypertension Restart home medication as needed Hydralazine as needed Time Spent With Patient Time: Total time spent is greater than 50% in coordination of care (as documented) at patient's floor/unit and/or counseling patient: Total time spent with greater than 50% in coordination of care (as documented) at patient's floor/unit and/or counseling patient:: 50 - 70 minutes Critical Care Time: No
[2021-12-08 20:16] LABS: Basophils # (Auto) 0 K/mcL (0.00-0.30); Basophils % (Auto) 0 % (0.0-2.0); Eosinophils # (Auto) 0 K/mcL (0.00-0.70); Eosinophils % (Auto) 0 % (0.0-7.0); Hemoglobin 9.8 g/dL (11.2-15.7); Lymphocytes # (Auto) 0.27 K/mcL (1.50-4.80); Lymphocytes % (Auto) 3.5 % (15.5-49.0); Mean Cell Volume 93.8 fL (80.0-100.0); Mean Corpuscular HGB Conc 32.7 g/dL (31.0-36.0); Monocytes # (Auto) 0.34 K/mcL (0.10-0.90); Monocytes % (Auto) 4.5 % (1.0-12.0); Platelet Count 15 K/mcL (140-440); Red Cell Distribution Width 19.7 % (11.5-14.5); WBC 7.6 K/mcL (4.5-11.0)
[2021-12-08] MEDS: 0.9 % SODIUM CHLORIDE 1,000 ML IV SCH (20:28)
[2021-12-08] MEDS: cefTRIAXone 2 GM in DEXTROSE 5% IN WATER 50 ML IV SCH (20:29)
[2021-12-08] MEDS ORDERED: cefTRIAXone 2 GM VIAL ONE (20:30)
[2021-12-08] MEDS: ACETAMINOPHEN 325 MG TABLET PO PRN (20:50)
[2021-12-08 21:07] LABS: Blood Urea Nitrogen 42 mg/dL (8-23); Calcium 8.6 mg/dL (8.6-10.4); Carbon Dioxide 19 mmol/L (22-30); Chloride 87 mmol/L (96-108); Glomerular Filtration Rate 30; Glucose 748 mg/dL (70-105)
[2021-12-08] MEDS ORDERED: INSULIN REGULAR, HUMAN 1 UNIT/0.01 ML UNIT ONE ×3 (21:24→22:21)
[2021-12-08] MEDS: INSULIN REGULAR, HUMAN 50 UNIT in 0.9 % SODIUM CHLORIDE 100 ML IV SCH (22:16)
[2021-12-08] MEDS ORDERED: traMADol 50 MG TABLET PO PRN (23:01)
[2021-12-09] MEDS: DEXTROSE 5%-NS 1,000 ML IV SCH ×2 (01:09→12:07)
[2021-12-09] MEDS: 0.9 % SODIUM CHLORIDE 10 ML SYRINGE IV SCH ×4 (02:26→21:29)
[2021-12-09] MEDS ORDERED: DEXTROSE 50% 50 ML SYRINGE IV ONE (03:32)
[2021-12-09] MEDS: 0.9 % SODIUM CHLORIDE 1,000 ML IV SCH (05:34)
[2021-12-09 06:54] LABS: Basophils # (Auto) 0.01 K/mcL (0.00-0.30); Basophils % (Auto) 0.1 % (0.0-2.0); Eosinophils # (Auto) 0.17 K/mcL (0.00-0.70); Eosinophils % (Auto) 1.8 % (0.0-7.0); Hematocrit 28.2 % (34.1-44.9); Hemoglobin 9.5 g/dL (11.2-15.7); Lymphocytes # (Auto) 0.51 K/mcL (1.50-4.80); Lymphocytes % (Auto) 5.5 % (15.5-49.0); Mean Cell Volume 89.8 fL (80.0-100.0); Mean Corpuscular HGB Conc 33.7 g/dL (31.0-36.0); Mean Platelet Volume 11.5 fL (7.4-10.4); Monocytes # (Auto) 0.55 K/mcL (0.10-0.90); Neutrophils % (Auto) 86.6 % (38.0-78.0); Platelet Count 14 K/mcL (140-440); RBC 3.14 M/mcL (3.59-5.38); Red Cell Distribution Width 20.2 % (11.5-14.5); WBC 9.2 K/mcL (4.5-11.0)
[2021-12-09] MEDS: INSULIN REGULAR, HUMAN 50 UNIT in 0.9 % SODIUM CHLORIDE 100 ML IV SCH (06:58)
[2021-12-09 07:07] LABS: ALT/SGPT 22 U/L (<40); AST/SGOT 20 U/L (<32); Albumin 2.7 gm/dL (3.2-5.2); Alkaline Phosphatase 185 U/L (39-117); Bilirubin,Total 0.8 mg/dL (0.1-1.0); Blood Urea Nitrogen 39 mg/dL (8-23); Calcium 8.3 mg/dL (8.6-10.4); Carbon Dioxide 24 mmol/L (22-30); Chloride 95 mmol/L (96-108); Globulin 2.7 gm/dL (2.2-3.7); Glomerular Filtration Rate 32; Glucose 127 mg/dL (70-105)
[2021-12-09] MEDS: LEVOTHYROXINE 88 MCG TABLET PO SCH (07:08)
[2021-12-09] MEDS: PANTOPRAZOLE 40 MG TABLET PO SCH ×2 (07:08→17:09)
[2021-12-09] MEDS ORDERED: PANTOPRAZOLE 40 MG TABLET PO SCH (07:30)
[2021-12-09] MEDS: predniSONE 20 MG TABLET PO SCH (08:07)
[2021-12-09] MEDS: RIFAXIMIN 550 MG TABLET PO SCH ×2 (08:56→21:28)
[2021-12-09] MEDS: VITAMIN D3 125 MCG TABLET PO SCH (08:57)
[2021-12-09] MEDS: LACTULOSE 20 GM/30 ML ORAL.SOL PO SCH ×3 (08:57→21:27)
[2021-12-09] MEDS: ONDANSETRON 4 MG/2 ML VIAL IV PRN ×2 (09:00→14:16)
[2021-12-09] MEDS ORDERED: TORSEMIDE 20 MG TABLET PO SCH (09:00)
[2021-12-09] MEDS ORDERED: DEXTROSE 31 GM ORAL.SUSP PO PRN (09:11)
[2021-12-09] MEDS ORDERED: DEXTROSE 50% 50 ML VIAL IV PRN (09:11)
[2021-12-09] MEDS: INSULIN GLARGINE, HUMAN 1 UNIT/0.01 ML SQ SCH (09:24)
[2021-12-09] MEDS: cefTRIAXone 2 GM in DEXTROSE 5% IN WATER 50 ML IV SCH (09:58)
[2021-12-09] MEDS: INSULIN LISPRO 1 UNIT/0.01 ML UNIT SQ SCH ×6 (10:02→21:27)
[2021-12-09] MEDS: CARBOXYMETHYLCELLULOSE SODIUM 1 EACH DROPER.GEL OP SCH (16:26)
[2021-12-09] MEDS: ONDANSETRON 4 MG ODT TABLET SL PRN (21:11)
[2021-12-10] MEDS: ACETAMINOPHEN 325 MG TABLET PO PRN (03:37)
[2021-12-10] MEDS ORDERED: amLODIPine 5 MG TABLET PO ONE (06:12)
[2021-12-10] MEDS: 0.9 % SODIUM CHLORIDE 10 ML SYRINGE IV SCH ×3 (06:23→21:59)
[2021-12-10] MEDS: LEVOTHYROXINE 88 MCG TABLET PO SCH (06:31)
[2021-12-10] MEDS: PANTOPRAZOLE 40 MG TABLET PO SCH ×2 (06:31→16:56)
[2021-12-10 06:57] LABS: Basophils # (Auto) 0.01 K/mcL (0.00-0.30); Basophils % (Auto) 0.1 % (0.0-2.0); Eosinophils # (Auto) 0.13 K/mcL (0.00-0.70); Eosinophils % (Auto) 1.7 % (0.0-7.0); Hematocrit 31.6 % (34.1-44.9); Hemoglobin 10.2 g/dL (11.2-15.7); Lymphocytes # (Auto) 0.36 K/mcL (1.50-4.80); Lymphocytes % (Auto) 4.8 % (15.5-49.0); Mean Cell Volume 91.9 fL (80.0-100.0); Mean Corpuscular HGB Conc 32.3 g/dL (31.0-36.0); Monocytes # (Auto) 0.28 K/mcL (0.10-0.90); Monocytes % (Auto) 3.8 % (1.0-12.0); Neutrophils % (Auto) 89.6 % (38.0-78.0); Platelet Count 13 K/mcL (140-440); RBC 3.44 M/mcL (3.59-5.38); Red Cell Distribution Width 20.9 % (11.5-14.5); WBC 7.5 K/mcL (4.5-11.0)
[2021-12-10 07:13] LABS: ALT/SGPT 26 U/L (<40); AST/SGOT 27 U/L (<32); Albumin 2.7 gm/dL (3.2-5.2); Alkaline Phosphatase 175 U/L (39-117); Bilirubin,Total 1.1 mg/dL (0.1-1.0); Blood Urea Nitrogen 27 mg/dL (8-23); Calcium 8.2 mg/dL (8.6-10.4); Carbon Dioxide 21 mmol/L (22-30); Chloride 93 mmol/L (96-108); Globulin 2.8 gm/dL (2.2-3.7); Glomerular Filtration Rate 38; Glucose 245 mg/dL (70-105)
[2021-12-10] MEDS: INSULIN LISPRO 1 UNIT/0.01 ML UNIT SQ SCH ×4 (07:30→20:57)
[2021-12-10] MEDS: predniSONE 20 MG TABLET PO SCH (07:44)
[2021-12-10] MEDS: INSULIN GLARGINE, HUMAN 1 UNIT/0.01 ML SQ SCH (08:42)
[2021-12-10] MEDS: ONDANSETRON 4 MG/2 ML VIAL IV PRN ×2 (08:43→15:15)
[2021-12-10] MEDS: LACTULOSE 20 GM/30 ML ORAL.SOL PO SCH ×3 (08:43→21:59)
[2021-12-10] MEDS: cefTRIAXone 2 GM in DEXTROSE 5% IN WATER 50 ML IV SCH (08:43)
[2021-12-10] MEDS: RIFAXIMIN 550 MG TABLET PO SCH ×2 (08:44→21:59)
[2021-12-10] MEDS: VITAMIN D3 125 MCG TABLET PO SCH (08:45)
[2021-12-10 11:33] LABS: Hemoglobin A1C 8.6 % Hgb (4.0-6.0)
[2021-12-10] MEDS ORDERED: INSULIN GLARGINE, HUMAN 1 UNIT/0.01 ML SQ ONE (12:55)
[2021-12-10] MEDS ORDERED: hydrALAZINE 20 MG/ML VIAL IV PRN (14:35)
[2021-12-10] MEDS: CARVEDILOL 12.5 MG TABLET PO SCH ×2 (14:44→21:59)
[2021-12-10] MEDS: CARBOXYMETHYLCELLULOSE SODIUM 1 EACH DROPER.GEL OP SCH (15:18)
--- NOTE | 2021-12-10 17:47 | Internal Med Progress Note ---
SUBJECTIVE Subjective Patient information: Note initiated : 12/09/21 at 5:46 pm Service Date, if different from initiated Date:12/09/2021 Patient: Addis Plascencia 71 y/o F admitted on 12/08/21 for blood sugar > 700, confusion. Chief Complaint: [] Interval history: 71-year-old female with a history of nonalcoholic liver cirrhosis-reportedly autoimmune, previous history of ascites hepatic encephalopathy portal hypertension Lupus nephritis, possible ITP with a platelet count always around 20,000 History of variceal banding in 2014 no further recurrence. Patient recently diagnosed with a possible ITP in October 2021 and was started on prednisone 80 mg and he has been on titration right now on 40 mg patient's developing weakness tiredness and was brought to the ER and her blood glucose was 900 no evidence of DKA and was started on insulin drip and admitted to our facility. Patient also had some urine symptoms lower abdominal pain and started on ceftriaxone for UTI 12/09 Patient blood sugar improved We will transition her to long-acting insulin No source of infection identified and will consider discontinuing ceftriaxone Creatinine started improving Review of systems Constitutional: Generalized weakness Eyes: Chronic vision loss and dry eyes Cardiovascular: no chest pain, no palpitations Respiratory: no cough or dyspnea Gastrointestinal: Distended no acute change Genitourinary: no dysuria or difficulty voiding Musculoskeletal: no arthralgia or myalgia Integumentary: Multiple skin lesions Neurological: no focal weakness or numbness Psychiatric: no anxiety or depression Physical exam Head: No bruises, normal-appearing nontraumatic Eyes: Vision loss chronic Neck: full ROM Respiratory: no respiratory distress. Cardiovascular: normal rate and rhythm, S1, S2. GI/Abdominal: Soft, distended bowel sounds are normal Extremities: full range of motion, nontender. Neurological: CN II-XII intact, intact motor, intact sensation. Psychiatric: normal mood. Skin: Multiple petechiae ecchymosis Constitutional Vitals: Vital Signs Temp Pulse Resp BP Pulse Ox 98.9 F 87 18 151/78 96 12/10/21 16:01 12/10/21 16:38 12/10/21 16:01 12/10/21 16:01 12/10/21 16:38 Period Temp Pulse Resp BP Sys/Miller Pulse Ox Last 24 Hr 97.6 F-99.4 F 82-109 15-24 126-180/57-163 94-100 Intake and Output 12/10/21 12/10/21 12/10/21 05:59 13:59 21:59 Intake Total 1170 Output Total 225 150 Balance -225 1020 Weight 75.206 kg Patient Weight 12/11/21 05:59 Weight 75.206 kg Intake & Output: Intake & Output 12/10/21 12/10/21 12/10/21 05:59 13:59 21:59 Intake Total 1170 Output Total 225 150 Balance -225 1020 Weight 75.206 kg Intake: IV 50 Rocephin 2 gm In Dextrose 5% in 50 Water 50 ml @ 100 mls/hr IV Q24H [facility] Rx#:[id number] Oral 1120 Output: Void Amount 225 150 Other: Meal Lunch Percent of Meal Consumed 75% Feeding Ability Assist with Tray Set Up Urine Appearance Clear Urine Color Straw Urine Odor Normal Stool Size Moderate Stool Color Brown Stool Consistency Soft Formed # Bowel Movements 0 1 OBJ DATA Labs CBC & Chem 7: 12/10/21 05:08 12/10/21 05:08 Labs: Abnormal Lab Results 12/10/21 12/10/21 12/10/21 05:08 05:08 05:08 RBC 3.44 L Hgb 10.2 L Hct 31.6 L POC Hct RDW 20.9 H Plt Count 13 L* MPV Neut % (Auto) 89.6 H Lymph % (Auto) 4.8 L Lymph # (Auto) 0.36 L Absolute Neutrophils VBG Lactic Acid POC Sodium Sodium 126 L POC Potassium Potassium POC Chloride Chloride 93 L Carbon Dioxide 21 L POC BUN BUN 27 H Creatinine 1.4 H POC Creatinine Glucose 245 H POC Glucose Hemoglobin A1c 8.6 H Calcium 8.2 L POC WB Ioniz Calcium Total Bilirubin 1.1 H Alkaline Phosphatase 175 H Total Protein 5.5 L Albumin 2.7 L Beta-Hydroxybutyrate Urine Glucose (UA) Urine Mucus 12/09/21 12/09/21 12/08/21 05:26 05:26 22:00 RBC 3.14 L Hgb 9.5 L Hct 28.2 L POC Hct RDW 20.2 H Plt Count 14 L* MPV 11.5 H Neut % (Auto) 86.6 H Lymph % (Auto) 5.5 L Lymph # (Auto) 0.51 L Absolute Neutrophils VBG Lactic Acid 5.8 H* POC Sodium Sodium 128 L POC Potassium Potassium POC Chloride Chloride 95 L Carbon Dioxide POC BUN BUN 39 H Creatinine 1.6 H POC Creatinine Glucose 127 H POC Glucose Hemoglobin A1c Calcium 8.3 L POC WB Ioniz Calcium Total Bilirubin Alkaline Phosphatase 185 H Total Protein 5.4 L Albumin 2.7 L Beta-Hydroxybutyrate Urine Glucose (UA) Urine Mucus 12/08/21 12/08/21 12/08/21 19:31 19:31 18:32 RBC 3.20 L Hgb 9.8 L Hct 30.0 L POC Hct RDW 19.7 H Plt Count 15 L* MPV Neut % (Auto) 92.0 H Lymph % (Auto) 3.5 L Lymph # (Auto) 0.27 L Absolute Neutrophils VBG Lactic Acid 6.3 H* POC Sodium Sodium 121 L POC Potassium Potassium POC Chloride Chloride 87 L Carbon Dioxide 19 L POC BUN BUN 42 H Creatinine 1.7 H POC Creatinine Glucose 748 H* POC Glucose Hemoglobin A1c Calcium POC WB Ioniz Calcium Total Bilirubin Alkaline Phosphatase Total Protein Albumin Beta-Hydroxybutyrate Urine Glucose (UA) Urine Mucus 12/08/21 12/08/21 12/08/21 15:07 14:40 14:40 RBC Hgb Hct POC Hct RDW Plt Count MPV Neut % (Auto) Lymph % (Auto) Lymph # (Auto) Absolute Neutrophils VBG Lactic Acid 5.3 H* POC Sodium Sodium 118 L* POC Potassium Potassium 5.5 H POC Chloride Chloride 83 L Carbon Dioxide 19 L POC BUN BUN 38 H Creatinine 1.8 H POC Creatinine Glucose 934 H* POC Glucose Hemoglobin A1c Calcium POC WB Ioniz Calcium Total Bilirubin 1.8 H Alkaline Phosphatase 281 H Total Protein Albumin Beta-Hydroxybutyrate 0.61 H Urine Glucose (UA) Urine Mucus 12/08/21 12/08/21 12/08/21 14:40 14:33 14:05 RBC Hgb 10.7 L Hct POC Hct 34.0 L RDW 19.8 H Plt Count 14 L* MPV 13.6 H Neut % (Auto) 95.9 H Lymph % (Auto) 2.3 L Lymph # (Auto) 0.20 L Absolute Neutrophils 8.28 H VBG Lactic Acid POC Sodium 121 L Sodium POC Potassium 5.6 H Potassium POC Chloride 87 L Chloride Carbon Dioxide POC BUN 41 H BUN Creatinine POC Creatinine 1.9 H Glucose POC Glucose > 700 H* Hemoglobin A1c Calcium POC WB Ioniz Calcium 1.11 L Total Bilirubin Alkaline Phosphatase Total Protein Albumin Beta-Hydroxybutyrate Urine Glucose (UA) >=500 A Urine Mucus Few A Meds: Medications Acetaminophen (Acetaminophen 325 Mg Tablet) 650 mg PO Q4-6HP PRN; Protocol PRN Reason: Per Pain Protocol/Fever > 101 Last Admin: 12/10/21 03:37 Dose: 650 mg Documented by: Albuterol/Ipratropium (Ipratropium/Albuterol 3 Ml Ampul.Neb) 3 ml NEB Q4HRT PRN PRN Reason: wheezing Amlodipine Besylate (Amlodipine 5 Mg Tablet) 5 mg PO DAILY [facility] Artificial Tears (Carboxymethylcellulose Sodium 1 Each Droper.Gel) 1 each OP 3- 4XD [facility] Last Admin: 12/10/21 15:18 Dose: 1 each Documented by: Bisacodyl (Bisacodyl 10 Mg Supp.Rect) 10 mg UT Q2-3DAYS PRN PRN Reason: Constipation Carvedilol (Carvedilol 12.5 Mg Tablet) 12.5 mg PO BIDCC [facility] Last Admin: 12/10/21 14:44 Dose: 12.5 mg Documented by: Dextrose (Dextrose 50% 50 Ml Vial) 0 ml IV UD PRN PRN Reason: Per Sliding Scale Diagnostic Test (Pha) (Accu-Chek 1 Each Strip) 1 each FS [facility] Last Admin: 12/10/21 16:29 Dose: 1 each Documented by: Glucose (Dextrose 31 Gm Oral.Susp) 15 gm PO PRN PRN PRN Reason: Hypoglycemia Hydralazine HCl (Hydralazine 20 Mg/Ml Vial) 10 mg IV Q4HP PRN PRN Reason: Hypertension Insulin Glargine (Insulin Glargine, Human 1 Unit/0.01 Ml) 26 unit SQ DAILY [facility] Insulin Human Lispro (Insulin Lispro 1 Unit/0.01 Ml Unit) 0 unit SQ [facility]; Protocol Last Admin: 12/10/21 16:30 Dose: 10 unit Documented by: Lactulose (Lactulose 20 Gm/30 Ml Oral.Emily) 10 gm PO TID [facility] Last Admin: 12/10/21 15:15 Dose: 10 gm Documented by: Levothyroxine Sodium (Levothyroxine 88 Mcg Tablet) 88 mcg PO ACB [facility] Last Admin: 12/10/21 06:31 Dose: 88 mcg Documented by: Lorazepam (Lorazepam 2 Mg/Ml Vial) 0.5 mg IV Q2HP PRN PRN Reason: ANXIETY/SEDATION Last Admin: 12/08/21 22:33 Dose: 0.5 mg Documented by: Magnesium Hydroxide (Magnesium Hydroxide 30 Ml Oral.Susp) 30 ml PO DAILYP PRN PRN Reason: Constipation Metoclopramide HCl (Metoclopramide 10 Mg/2 Ml Vial) 5 mg IV Q6HP PRN PRN Reason: nausea Non-Formulary Medication (Spironolactone [Aldactone]) 100 mg PO QDAY [facility] Ondansetron HCl (Ondansetron 4 Mg/2 Ml Vial) 4 mg IV Q4-6HP PRN; Protocol PRN Reason: Nausea And Vomiting Last Admin: 12/10/21 15:15 Dose: 4 mg Documented by: Ondansetron HCl (Ondansetron 4 Mg Odt Tablet) 4 mg SL Q8HP PRN PRN Reason: nausea and vomiting Last Admin: 12/09/21 21:11 Dose: 4 mg Documented by: Pantoprazole Sodium ([facility] Mg [facility]t) [facility] Last Admin: 12/10/21 16:56 Dose: 20 mg Documented by: Prednisone (Prednisone 20 Mg Tablet) 40 mg PO [facility] Last Admin: 12/10/21 07:44 Dose: 40 mg Documented by: Promethazine HCl (Promethazine 25 Mg/Ml Vial) 12.5 mg IV Q4-6HP PRN; Protocol PRN Reason: Nausea And Vomiting Senna (Sennosides 1 Tablet) 2 tab PO HSP PRN PRN Reason: Constipation Sodium Chloride (0.9 % Sodium Chloride 10 Ml Syringe) 10 ml IV Q8 [facility] Last Admin: 12/10/21 14:15 Dose: 10 ml Documented by: Tramadol HCl (Tramadol 50 Mg Tablet) 50 mg PO Q6HP PRN; Protocol PRN Reason: Pain Vitamin D (Vitamin D3 125 Mcg Tablet) 125 mcg PO QDAY [facility] Last Admin: 12/10/21 08:45 Dose: 125 mcg Documented by: A/P Narrative Plan of Treatment: Hyperosmolar hyperglycemia New type 2 diabetes Patient with a history of multiple autoimmune disorders lupus, Sjogren's syndrome and been on chronic steroids 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 History of COVID infection Unvaccinated Present with a blood glucose of more than 900 no significant acidosis no anion gap Patient was started on insulin drip and admitted to the floor Plan Blood sugar improved and planning to transition her to Lantus and sliding scale according to the protocol We will transition her to long-acting insulin and sliding scale Patient is on steroids prednisone 40 mg on titration dose Diabetic education Patient probably needs to establish with endocrinology because of her multiple complex health conditions and autoimmune disease Acute renal failure CKD stage III Continue IV hydration and follow-up kidney function If it is not improving will obtain ultrasound of the kidney Lactic acidosis Probably type II due to liver failure no evidence of hypotension no source of infection . Stop checking lactic acid Critical thrombocytopenia Probably a combination of ITP and liver cirrhosis Patient was seen by heme-onc specialist Dr. Burgos at [facility] and started the patient on prednisone Further recommendations to titrate the prednisone patient for platelet always been less than 20,000 and the highest seen was 23,000 No active bleeding history Platelet transfusion did not improve her platelet count previously and will monitor if she is showing any signs of bleeding will consider urgent platelet transfusion Nonalcoholic liver cirrhosis Portal hypertension no reported history of varices Critical thrombocytopenia Reportedly autoimmune not verified History of ascites Autoimmune disease Systemic lupus disease Sjogren's syndrome Possible ITP Followed by rheumatology and hematology on prednisone titration on 40 mg for this week and then 20 mg plan is to eventually stop as it is not helping her platelet levels Essential hypertension Restart home medication as needed Hydralazine as needed Time Spent With Patient Time: Total time spent is greater than 50% in coordination of care (as documented) at patient's floor/unit and/or counseling patient:
--- NOTE | 2021-12-10 17:48 | Internal Med Progress Note ---
SUBJECTIVE Subjective Patient information: Note initiated : 12/10/21 at 5:48 pm Service Date, if different from initiated Date: [] Patient: Addis Plascencia 71 y/o F admitted on 12/08/21 for blood sugar > 700, confusion. Chief Complaint: [] Interval history: This is a 71-year-old female with a history of nonalcoholic liver cirrhosis-reportedly autoimmune, previous history of ascites hepatic encephalopathy portal hypertension Lupus nephritis, possible ITP with a platelet count always around 20,000 History of variceal banding in 2014 no further recurrence. Patient recently diagnosed with a possible ITP in October 2021 and was started on prednisone 80 mg and he has been on titration right now on 40 mg patient's developing weakness tiredness and was brought to the ER and her blood glucose was 900 no evidence of DKA and was started on insulin drip and admitted to our facility. 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 Creatinine continues to improve Discontinued ceftriaxone Started her home blood pressure medications Added Coreg Review of systems Constitutional: Generalized weakness Eyes: Chronic vision loss and dry eyes Cardiovascular: no chest pain, no palpitations Respiratory: no cough or dyspnea Gastrointestinal: Distended no acute change Genitourinary: no dysuria or difficulty voiding Musculoskeletal: no arthralgia or myalgia Integumentary: Multiple skin lesions Neurological: no focal weakness or numbness Psychiatric: no anxiety or depression Physical exam Head: No bruises, normal-appearing nontraumatic Eyes: Vision loss chronic Neck: full ROM Respiratory: no respiratory distress. Cardiovascular: normal rate and rhythm, S1, S2. GI/Abdominal: Soft, distended bowel sounds are normal Extremities: full range of motion, nontender. Neurological: CN II-XII intact, intact motor, intact sensation. Psychiatric: normal mood. Skin: Multiple petechiae ecchymosis Constitutional Vitals: Vital Signs Temp Pulse Resp BP Pulse Ox 98.9 F 87 18 151/78 96 12/10/21 16:01 12/10/21 16:38 12/10/21 16:01 12/10/21 16:01 12/10/21 16:38 Period Temp Pulse Resp BP Sys/Miller Pulse Ox Last 24 Hr 97.6 F-99.4 F 82-109 15-24 126-180/57-163 94-100 Intake and Output 12/10/21 12/10/21 12/10/21 05:59 13:59 21:59 Intake Total 1170 Output Total 225 150 Balance -225 1020 Weight 75.206 kg Patient Weight 12/11/21 05:59 Weight 75.206 kg Intake & Output: Intake & Output 12/10/21 12/10/21 12/10/21 05:59 13:59 21:59 Intake Total 1170 Output Total 225 150 Balance -225 1020 Weight 75.206 kg Intake: IV 50 Rocephin 2 gm In Dextrose 5% in 50 Water 50 ml @ 100 mls/hr IV Q24H [facility] Rx#:[id number] Oral 1120 Output: Void Amount 225 150 Other: Meal Lunch Percent of Meal Consumed 75% Feeding Ability Assist with Tray Set Up Urine Appearance Clear Urine Color Straw Urine Odor Normal Stool Size Moderate Stool Color Brown Stool Consistency Soft Formed # Bowel Movements 0 1 OBJ DATA Labs CBC & Chem 7: 12/10/21 05:08 12/10/21 05:08 Labs: Abnormal Lab Results 12/10/21 12/10/21 12/10/21 05:08 05:08 05:08 RBC 3.44 L Hgb 10.2 L Hct 31.6 L POC Hct RDW 20.9 H Plt Count 13 L* MPV Neut % (Auto) 89.6 H Lymph % (Auto) 4.8 L Lymph # (Auto) 0.36 L Absolute Neutrophils VBG Lactic Acid POC Sodium Sodium 126 L POC Potassium Potassium POC Chloride Chloride 93 L Carbon Dioxide 21 L POC BUN BUN 27 H Creatinine 1.4 H POC Creatinine Glucose 245 H POC Glucose Hemoglobin A1c 8.6 H Calcium 8.2 L POC WB Ioniz Calcium Total Bilirubin 1.1 H Alkaline Phosphatase 175 H Total Protein 5.5 L Albumin 2.7 L Beta-Hydroxybutyrate Urine Glucose (UA) Urine Mucus 12/09/21 12/09/21 12/08/21 05:26 05:26 22:00 RBC 3.14 L Hgb 9.5 L Hct 28.2 L POC Hct RDW 20.2 H Plt Count 14 L* MPV 11.5 H Neut % (Auto) 86.6 H Lymph % (Auto) 5.5 L Lymph # (Auto) 0.51 L Absolute Neutrophils VBG Lactic Acid 5.8 H* POC Sodium Sodium 128 L POC Potassium Potassium POC Chloride Chloride 95 L Carbon Dioxide POC BUN BUN 39 H Creatinine 1.6 H POC Creatinine Glucose 127 H POC Glucose Hemoglobin A1c Calcium 8.3 L POC WB Ioniz Calcium Total Bilirubin Alkaline Phosphatase 185 H Total Protein 5.4 L Albumin 2.7 L Beta-Hydroxybutyrate Urine Glucose (UA) Urine Mucus 12/08/21 12/08/21 12/08/21 19:31 19:31 18:32 RBC 3.20 L Hgb 9.8 L Hct 30.0 L POC Hct RDW 19.7 H Plt Count 15 L* MPV Neut % (Auto) 92.0 H Lymph % (Auto) 3.5 L Lymph # (Auto) 0.27 L Absolute Neutrophils VBG Lactic Acid 6.3 H* POC Sodium Sodium 121 L POC Potassium Potassium POC Chloride Chloride 87 L Carbon Dioxide 19 L POC BUN BUN 42 H Creatinine 1.7 H POC Creatinine Glucose 748 H* POC Glucose Hemoglobin A1c Calcium POC WB Ioniz Calcium Total Bilirubin Alkaline Phosphatase Total Protein Albumin Beta-Hydroxybutyrate Urine Glucose (UA) Urine Mucus 12/08/21 12/08/21 12/08/21 15:07 14:40 14:40 RBC Hgb Hct POC Hct RDW Plt Count MPV Neut % (Auto) Lymph % (Auto) Lymph # (Auto) Absolute Neutrophils VBG Lactic Acid 5.3 H* POC Sodium Sodium 118 L* POC Potassium Potassium 5.5 H POC Chloride Chloride 83 L Carbon Dioxide 19 L POC BUN BUN 38 H Creatinine 1.8 H POC Creatinine Glucose 934 H* POC Glucose Hemoglobin A1c Calcium POC WB Ioniz Calcium Total Bilirubin 1.8 H Alkaline Phosphatase 281 H Total Protein Albumin Beta-Hydroxybutyrate 0.61 H Urine Glucose (UA) Urine Mucus 12/08/21 12/08/21 12/08/21 14:40 14:33 14:05 RBC Hgb 10.7 L Hct POC Hct 34.0 L RDW 19.8 H Plt Count 14 L* MPV 13.6 H Neut % (Auto) 95.9 H Lymph % (Auto) 2.3 L Lymph # (Auto) 0.20 L Absolute Neutrophils 8.28 H VBG Lactic Acid POC Sodium 121 L Sodium POC Potassium 5.6 H Potassium POC Chloride 87 L Chloride Carbon Dioxide POC BUN 41 H BUN Creatinine POC Creatinine 1.9 H Glucose POC Glucose > 700 H* Hemoglobin A1c Calcium POC WB Ioniz Calcium 1.11 L Total Bilirubin Alkaline Phosphatase Total Protein Albumin Beta-Hydroxybutyrate Urine Glucose (UA) >=500 A Urine Mucus Few A Meds: Medications Acetaminophen (Acetaminophen 325 Mg Tablet) 650 mg PO Q4-6HP PRN; Protocol PRN Reason: Per Pain Protocol/Fever > 101 Last Admin: 12/10/21 03:37 Dose: 650 mg Documented by: Albuterol/Ipratropium (Ipratropium/Albuterol 3 Ml Ampul.Neb) 3 ml NEB Q4HRT PRN PRN Reason: wheezing Amlodipine Besylate (Amlodipine 5 Mg Tablet) 5 mg PO DAILY [facility] Artificial Tears (Carboxymethylcellulose Sodium 1 Each Droper.Gel) 1 each OP 3- 4XD [facility] Last Admin: 12/10/21 15:18 Dose: 1 each Documented by: Bisacodyl (Bisacodyl 10 Mg Supp.Rect) 10 mg GA Q2-3DAYS PRN PRN Reason: Constipation Carvedilol (Carvedilol 12.5 Mg Tablet) 12.5 mg PO BIDCC [facility] Last Admin: 12/10/21 14:44 Dose: 12.5 mg Documented by: Dextrose (Dextrose 50% 50 Ml Vial) 0 ml IV UD PRN PRN Reason: Per Sliding Scale Diagnostic Test (Pha) (Accu-Chek 1 Each Strip) 1 each FS ACHS [facility] Last Admin: 12/10/21 16:29 Dose: 1 each Documented by: Glucose (Dextrose 31 Gm Oral.Susp) 15 gm PO PRN PRN PRN Reason: Hypoglycemia Hydralazine HCl (Hydralazine 20 Mg/Ml Vial) 10 mg IV Q4HP PRN PRN Reason: Hypertension Insulin Glargine (Insulin Glargine, Human 1 Unit/0.01 Ml) 26 unit SQ DAILY [facility] Insulin Human Lispro (Insulin Lispro 1 Unit/0.01 Ml Unit) 0 unit SQ ACHS [facility]; Protocol Last Admin: 12/10/21 16:30 Dose: 10 unit Documented by: Lactulose (Lactulose 20 Gm/30 Ml Oral.Emily) 10 gm PO TID [facility] Last Admin: 12/10/21 15:15 Dose: 10 gm Documented by: Levothyroxine Sodium (Levothyroxine 88 Mcg Tablet) 88 mcg PO ACB [facility] Last Admin: 12/10/21 06:31 Dose: 88 mcg Documented by: Lorazepam (Lorazepam 2 Mg/Ml Vial) 0.5 mg IV Q2HP PRN PRN Reason: ANXIETY/SEDATION Last Admin: 12/08/21 22:33 Dose: 0.5 mg Documented by: Magnesium Hydroxide (Magnesium Hydroxide 30 Ml Oral.Susp) 30 ml PO DAILYP PRN PRN Reason: Constipation Metoclopramide HCl (Metoclopramide 10 Mg/2 Ml Vial) 5 mg IV Q6HP PRN PRN Reason: nausea Non-Formulary Medication (Spironolactone [Aldactone]) 100 mg PO QDAY [facility] Ondansetron HCl (Ondansetron 4 Mg/2 Ml Vial) 4 mg IV Q4-6HP PRN; Protocol PRN Reason: Nausea And Vomiting Last Admin: 12/10/21 15:15 Dose: 4 mg Documented by: Ondansetron HCl (Ondansetron 4 Mg Odt Tablet) 4 mg SL Q8HP PRN PRN Reason: nausea and vomiting Last Admin: 12/09/21 21:11 Dose: 4 mg Documented by: Pantoprazole Sodium ([facility]antoprazole 40 Mg Tablet) [facility] Last Admin: 12/10/21 16:56 Dose: 20 mg Documented by: Prednisone (Prednisone 20 Mg Tablet) 40 mg PO [facility] Last Admin: 12/10/21 07:44 Dose: 40 mg Documented by: Promethazine HCl (Promethazine 25 Mg/Ml Vial) 12.5 mg IV Q4-6HP PRN; Protocol PRN Reason: Nausea And Vomiting Senna (Sennosides 1 Tablet) 2 tab PO HSP PRN PRN Reason: Constipation Sodium Chloride (0.9 % Sodium Chloride 10 Ml Syringe) 10 ml IV Q8 [facility] Last Admin: 12/10/21 14:15 Dose: 10 ml Documented by: Tramadol HCl (Tramadol 50 Mg Tablet) 50 mg PO Q6HP PRN; Protocol PRN Reason: Pain Vitamin D (Vitamin D3 125 Mcg Tablet) 125 mcg PO QDAY [facility] Last Admin: 12/10/21 08:45 Dose: 125 mcg Documented by: A/P Narrative Plan of Treatment: Hyperosmolar hyperglycemia New type 2 diabetes Patient with a history of multiple autoimmune disorders lupus, Sjogren's syndrome and been on chronic steroids 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 History of COVID infection Unvaccinated Present with a blood glucose of more than 900 no significant acidosis no anion gap Patient was started on insulin drip and admitted to the floor Plan Blood sugar improved and planning to transition her to Lantus and sliding scale according to the protocol We will transition her to long-acting insulin and sliding scale Lantus dose increased to 26 units daily in the morning Patient is on steroids prednisone 40 mg on titration dose Diabetic education Patient probably needs to establish with endocrinology because of her multiple complex health conditions and autoimmune disease Acute renal failure CKD stage III Continue IV hydration and follow-up kidney function If it is not improving will obtain ultrasound of the kidney Lactic acidosis Probably type II due to liver failure no evidence of hypotension no source of infection . Stop checking lactic acid Critical thrombocytopenia Probably a combination of ITP and liver cirrhosis Patient was seen by heme-onc specialist Dr. Burgos at [facility] and started the patient on prednisone Further recommendations to titrate the prednisone patient for platelet always been less than 20,000 and the highest seen was 23,000 No active bleeding history Platelet transfusion did not improve her platelet count previously and will monitor if she is showing any signs of bleeding will consider urgent platelet transfusion Nonalcoholic liver cirrhosis Portal hypertension no reported history of varices Critical thrombocytopenia Reportedly autoimmune not verified History of ascites Autoimmune disease Systemic lupus disease Sjogren's syndrome Possible ITP Followed by rheumatology and hematology on prednisone titration on 40 mg for this week and then 20 mg plan is to eventually stop as it is not helping her platelet levels Essential hypertension Restart home medication as needed Hydralazine as needed Time Spent With Patient Time: Total time spent is greater than 50% in coordination of care (as documented) at patient's floor/unit and/or counseling patient:
--- NOTE | 2021-12-10 17:49 | Internal Med Progress Note ---
SUBJECTIVE Subjective Patient information: Note initiated : 12/10/21 at 5:42 pm Service Date, if different from initiated Date: [] Patient: Addis Plascencia 71 y/o F admitted on 12/08/21 for blood sugar > 700, confusion. Chief Complaint: [] Constitutional Vitals: Vital Signs Temp Pulse Resp BP Pulse Ox 98.9 F 87 18 151/78 96 12/10/21 16:01 12/10/21 16:38 12/10/21 16:01 12/10/21 16:01 12/10/21 16:38 Period Temp Pulse Resp BP Sys/Miller Pulse Ox Last 24 Hr 97.6 F-99.4 F 82-109 15-24 126-180/57-163 94-100 Intake and Output 12/10/21 12/10/21 12/10/21 05:59 13:59 21:59 Intake Total 1170 Output Total 225 150 Balance -225 1020 Weight 75.206 kg Patient Weight 12/11/21 05:59 Weight 75.206 kg Intake & Output: Intake & Output 12/10/21 12/10/21 12/10/21 05:59 13:59 21:59 Intake Total 1170 Output Total 225 150 Balance -225 1020 Weight 75.206 kg Intake: IV 50 Rocephin 2 gm In Dextrose 5% in 50 Water 50 ml @ 100 mls/hr IV Q24H [facility] Rx#:[id number] Oral 1120 Output: Void Amount 225 150 Other: Meal Lunch Percent of Meal Consumed 75% Feeding Ability Assist with Tray Set Up Urine Appearance Clear Urine Color Straw Urine Odor Normal Stool Size Moderate Stool Color Brown Stool Consistency Soft Formed # Bowel Movements 0 1 OBJ DATA Labs CBC & Chem 7: 12/10/21 05:08 12/10/21 05:08 Labs: Abnormal Lab Results 12/10/21 12/10/21 12/10/21 05:08 05:08 05:08 RBC 3.44 L Hgb 10.2 L Hct 31.6 L POC Hct RDW 20.9 H Plt Count 13 L* MPV Neut % (Auto) 89.6 H Lymph % (Auto) 4.8 L Lymph # (Auto) 0.36 L Absolute Neutrophils VBG Lactic Acid POC Sodium Sodium 126 L POC Potassium Potassium POC Chloride Chloride 93 L Carbon Dioxide 21 L POC BUN BUN 27 H Creatinine 1.4 H POC Creatinine Glucose 245 H POC Glucose Hemoglobin A1c 8.6 H Calcium 8.2 L POC WB Ioniz Calcium Total Bilirubin 1.1 H Alkaline Phosphatase 175 H Total Protein 5.5 L Albumin 2.7 L Beta-Hydroxybutyrate Urine Glucose (UA) Urine Mucus 12/09/21 12/09/21 12/08/21 05:26 05:26 22:00 RBC 3.14 L Hgb 9.5 L Hct 28.2 L POC Hct RDW 20.2 H Plt Count 14 L* MPV 11.5 H Neut % (Auto) 86.6 H Lymph % (Auto) 5.5 L Lymph # (Auto) 0.51 L Absolute Neutrophils VBG Lactic Acid 5.8 H* POC Sodium Sodium 128 L POC Potassium Potassium POC Chloride Chloride 95 L Carbon Dioxide POC BUN BUN 39 H Creatinine 1.6 H POC Creatinine Glucose 127 H POC Glucose Hemoglobin A1c Calcium 8.3 L POC WB Ioniz Calcium Total Bilirubin Alkaline Phosphatase 185 H Total Protein 5.4 L Albumin 2.7 L Beta-Hydroxybutyrate Urine Glucose (UA) Urine Mucus 12/08/21 12/08/21 12/08/21 19:31 19:31 18:32 RBC 3.20 L Hgb 9.8 L Hct 30.0 L POC Hct RDW 19.7 H Plt Count 15 L* MPV Neut % (Auto) 92.0 H Lymph % (Auto) 3.5 L Lymph # (Auto) 0.27 L Absolute Neutrophils VBG Lactic Acid 6.3 H* POC Sodium Sodium 121 L POC Potassium Potassium POC Chloride Chloride 87 L Carbon Dioxide 19 L POC BUN BUN 42 H Creatinine 1.7 H POC Creatinine Glucose 748 H* POC Glucose Hemoglobin A1c Calcium POC WB Ioniz Calcium Total Bilirubin Alkaline Phosphatase Total Protein Albumin Beta-Hydroxybutyrate Urine Glucose (UA) Urine Mucus 12/08/21 12/08/21 12/08/21 15:07 14:40 14:40 RBC Hgb Hct POC Hct RDW Plt Count MPV Neut % (Auto) Lymph % (Auto) Lymph # (Auto) Absolute Neutrophils VBG Lactic Acid 5.3 H* POC Sodium Sodium 118 L* POC Potassium Potassium 5.5 H POC Chloride Chloride 83 L Carbon Dioxide 19 L POC BUN BUN 38 H Creatinine 1.8 H POC Creatinine Glucose 934 H* POC Glucose Hemoglobin A1c Calcium POC WB Ioniz Calcium Total Bilirubin 1.8 H Alkaline Phosphatase 281 H Total Protein Albumin Beta-Hydroxybutyrate 0.61 H Urine Glucose (UA) Urine Mucus 12/08/21 12/08/21 12/08/21 14:40 14:33 14:05 RBC Hgb 10.7 L Hct POC Hct 34.0 L RDW 19.8 H Plt Count 14 L* MPV 13.6 H Neut % (Auto) 95.9 H Lymph % (Auto) 2.3 L Lymph # (Auto) 0.20 L Absolute Neutrophils 8.28 H VBG Lactic Acid POC Sodium 121 L Sodium POC Potassium 5.6 H Potassium POC Chloride 87 L Chloride Carbon Dioxide POC BUN 41 H BUN Creatinine POC Creatinine 1.9 H Glucose POC Glucose > 700 H* Hemoglobin A1c Calcium POC WB Ioniz Calcium 1.11 L Total Bilirubin Alkaline Phosphatase Total Protein Albumin Beta-Hydroxybutyrate Urine Glucose (UA) >=500 A Urine Mucus Few A Meds: Medications Acetaminophen (Acetaminophen 325 Mg Tablet) 650 mg PO Q4-6HP PRN; Protocol PRN Reason: Per Pain Protocol/Fever > 101 Last Admin: 12/10/21 03:37 Dose: 650 mg Documented by: Albuterol/Ipratropium (Ipratropium/Albuterol 3 Ml Ampul.Neb) 3 ml NEB Q4HRT PRN PRN Reason: wheezing Amlodipine Besylate (Amlodipine 5 Mg Tablet) 5 mg PO DAILY [facility] Artificial Tears (Carboxymethylcellulose Sodium 1 Each Droper.Gel) 1 each OP 3- 4XD [facility] Last Admin: 12/10/21 15:18 Dose: 1 each Documented by: Bisacodyl (Bisacodyl 10 Mg Supp.Rect) [address] Q2-3DAYS PRN PRN Reason: Constipation Carvedilol (Carvedilol 12.5 Mg Tablet) 12.5 mg PO BIDCC [facility] Last Admin: 12/10/21 14:44 Dose: 12.5 mg Documented by: Dextrose (Dextrose 50% 50 Ml Vial) 0 ml IV UD PRN PRN Reason: Per Sliding Scale Diagnostic Test (Pha) (Accu-Chek 1 Each Strip) 1 each FS ACHS [facility] Last Admin: 12/10/21 16:29 Dose: 1 each Documented by: Glucose (Dextrose 31 Gm Oral.Susp) 15 gm PO PRN PRN PRN Reason: Hypoglycemia Hydralazine HCl (Hydralazine 20 Mg/Ml Vial) 10 mg IV Q4HP PRN PRN Reason: Hypertension Insulin Glargine (Insulin Glargine, Human 1 Unit/0.01 Ml) 26 unit SQ DAILY [facility] Insulin Human Lispro (Insulin Lispro 1 Unit/0.01 Ml Unit) 0 unit SQ ACHS [facility]; Protocol Last Admin: 12/10/21 16:30 Dose: 10 unit Documented by: Lactulose (Lactulose 20 Gm/30 Ml Oral.Emily) 10 gm PO TID [facility] Last Admin: 12/10/21 15:15 Dose: 10 gm Documented by: Levothyroxine Sodium (Levothyroxine 88 Mcg Tablet) 88 mcg PO ACB [facility] Last Admin: 12/10/21 06:31 Dose: 88 mcg Documented by: Lorazepam (Lorazepam 2 Mg/Ml Vial) 0.5 mg IV Q2HP PRN PRN Reason: ANXIETY/SEDATION Last Admin: 12/08/21 22:33 Dose: 0.5 mg Documented by: Magnesium Hydroxide (Magnesium Hydroxide 30 Ml Oral.Susp) 30 ml PO DAILYP PRN PRN Reason: Constipation Metoclopramide HCl (Metoclopramide 10 Mg/2 Ml Vial) 5 mg IV Q6HP PRN PRN Reason: nausea Ondansetron HCl (Ondansetron 4 Mg/2 Ml Vial) 4 mg IV Q4-6HP PRN; Protocol PRN Reason: Nausea And Vomiting Last Admin: 12/10/21 15:15 Dose: 4 mg Documented by: Ondansetron HCl (Ondansetron 4 Mg Odt Tablet) 4 mg SL Q8HP PRN PRN Reason: nausea and vomiting Last Admin: 12/09/21 21:11 Dose: 4 mg Documented by: Pantoprazole Sodium (Pantoprazole 40 Mg Tablet) 20 mg PO BIDAC [facility] Last Admin: 12/10/21 16:56 Dose: 20 mg Documented by: Prednisone ([facility] 20 Mg Tablet) [facility] Last Admin: 12/10/21 07:44 Dose: 40 mg Documented by: Promethazine HCl (Promethazine 25 Mg/Ml Vial) 12.5 mg IV Q4-6HP PRN; Protocol PRN Reason: Nausea And Vomiting Senna (Sennosides 1 Tablet) 2 tab PO HSP PRN PRN Reason: Constipation Sodium Chloride (0.9 % Sodium Chloride 10 Ml Syringe) 10 ml IV Q8 [facility] Last Admin: 12/10/21 14:15 Dose: 10 ml Documented by: Tramadol HCl (Tramadol 50 Mg Tablet) 50 mg PO Q6HP PRN; Protocol PRN Reason: Pain Vitamin D (Vitamin D3 125 Mcg Tablet) 125 mcg PO QDAY [facility] Last Admin: 12/10/21 08:45 Dose: 125 mcg Documented by: A/P Narrative Plan of Treatment: Hyperosmolar hyperglycemia New type 2 diabetes Patient with a history of multiple autoimmune disorders lupus, Sjogren's syndrome and been on chronic steroids 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 History of COVID infection Unvaccinated Present with a blood glucose of more than 900 no significant acidosis no anion gap Patient was started on insulin drip and admitted to the floor Plan Blood sugar improved and planning to transition her to Lantus and sliding scale according to the protocol We will transition her to long-acting insulin and sliding scale Lantus dose increased to 26 units daily in the morning Patient is on steroids prednisone 40 mg on titration dose Diabetic education Patient probably needs to establish with endocrinology because of her multiple complex health conditions and autoimmune disease Acute renal failure CKD stage III Continue IV hydration and follow-up kidney function If it is not improving will obtain ultrasound of the kidney Lactic acidosis Probably type II due to liver failure no evidence of hypotension no source of infection . Stop checking lactic acid Critical thrombocytopenia Probably a combination of ITP and liver cirrhosis Patient was seen by heme-onc specialist Dr. Burgos at [facility] and started the patient on prednisone Further recommendations to titrate the prednisone patient for platelet always been less than 20,000 and the highest seen was 23,000 No active bleeding history Platelet transfusion did not improve her platelet count previously and will oliva tor if she is showing any signs of bleeding will consider urgent platelet transfusion Nonalcoholic liver cirrhosis Portal hypertension no reported history of varices Critical thrombocytopenia Reportedly autoimmune not verified History of ascites Autoimmune disease Systemic lupus disease Sjogren's syndrome Possible ITP Followed by rheumatology and hematology on prednisone titration on 40 mg for t his week and then 20 mg plan is to eventually stop as it is not helping her platelet levels Essential hypertension Restart home medication as needed Hydralazine as needed Time Spent With Patient Time: Total time spent is greater than 50% in coordination of care (as documented) at patient's floor/unit and/or counseling patient:
[2021-12-10] MEDS ORDERED: INSULIN REGULAR, HUMAN 1 UNIT/0.01 ML UNIT IV ONE ×2 (18:42→19:27)
[2021-12-10] MEDS ORDERED: INSULIN REGULAR, HUMAN 1 UNIT/0.01 ML UNIT ONE ×2 (18:48→19:46)
[2021-12-10] MEDS: ONDANSETRON 4 MG ODT TABLET SL PRN (20:56)
[2021-12-11] MEDS: 0.9 % SODIUM CHLORIDE 10 ML SYRINGE IV SCH ×3 (05:45→21:19)
[2021-12-11 06:43] LABS: Basophils # (Auto) 0 K/mcL (0.00-0.30); Basophils % (Auto) 0 % (0.0-2.0); Eosinophils # (Auto) 0.08 K/mcL (0.00-0.70); Eosinophils % (Auto) 1.4 % (0.0-7.0); Hematocrit 28.1 % (34.1-44.9); Hemoglobin 9.3 g/dL (11.2-15.7); Lymphocytes # (Auto) 0.24 K/mcL (1.50-4.80); Lymphocytes % (Auto) 4.3 % (15.5-49.0); Mean Cell Volume 90.9 fL (80.0-100.0); Mean Corpuscular HGB Conc 33.1 g/dL (31.0-36.0); Monocytes # (Auto) 0.28 K/mcL (0.10-0.90); Neutrophils % (Auto) 89.3 % (38.0-78.0); Platelet Count 9 K/mcL (140-440); RBC 3.09 M/mcL (3.59-5.38); WBC 5.6 K/mcL (4.5-11.0)
[2021-12-11 06:56] LABS: ALT/SGPT 23 U/L (<40); AST/SGOT 24 U/L (<32); Albumin 2.3 gm/dL (3.2-5.2); Albumin/Globulin Ratio 0.8 (1.0-2.3); Alkaline Phosphatase 159 U/L (39-117); Bilirubin,Total 0.9 mg/dL (0.1-1.0); Blood Urea Nitrogen 37 mg/dL (8-23); Calcium 7.9 mg/dL (8.6-10.4); Carbon Dioxide 21 mmol/L (22-30); Chloride 91 mmol/L (96-108); Globulin 2.9 gm/dL (2.2-3.7); Glomerular Filtration Rate 35; Glucose 225 mg/dL (70-105)
[2021-12-11] MEDS: LEVOTHYROXINE 88 MCG TABLET PO SCH (08:20)
[2021-12-11] MEDS: PANTOPRAZOLE 40 MG TABLET PO SCH ×2 (08:20→17:04)
[2021-12-11] MEDS: INSULIN LISPRO 1 UNIT/0.01 ML UNIT SQ SCH ×4 (08:24→21:19)
[2021-12-11] MEDS: INSULIN GLARGINE, HUMAN 1 UNIT/0.01 ML SQ SCH (08:25)
[2021-12-11] MEDS: amLODIPine 5 MG TABLET PO SCH (08:25)
[2021-12-11] MEDS: LACTULOSE 20 GM/30 ML ORAL.SOL PO SCH ×3 (08:25→21:18)
[2021-12-11] MEDS: CARVEDILOL 12.5 MG TABLET PO SCH ×2 (08:25→17:04)
[2021-12-11] MEDS: VITAMIN D3 125 MCG TABLET PO SCH (08:26)
[2021-12-11] MEDS: SPIRONOLACTONE 25 MG TABLET PO SCH (08:26)
[2021-12-11] MEDS: RIFAXIMIN 550 MG TABLET PO SCH ×2 (08:26→21:18)
[2021-12-11] MEDS: predniSONE 20 MG TABLET PO SCH (08:58)
[2021-12-11] MEDS ORDERED: 0.9 % SODIUM CHLORIDE 250 ML IV SCH (12:45)
--- NOTE | 2021-12-11 15:37 | Internal Med Progress Note ---
SUBJECTIVE Subjective Patient information: Note initiated : 12/11/21 at 3:37 pm Service Date, if different from initiated Date: [] Patient: Addis Plascencia 71 y/o F admitted on 12/08/21 for blood sugar > 700, confusion. Chief Complaint: [] Interval history: 71-year-old female with a history of nonalcoholic liver cirrhosis-reportedly autoimmune, previous history of ascites hepatic encephalopathy portal hypertension Lupus nephritis, possible ITP with a platelet count always around 20,000 History of variceal banding in 2014 no further recurrence. Patient recently diagnosed with a possible ITP in October 2021 and was started on prednisone 80 mg and he has been on titration right now on 40 mg patient's developing weakness tiredness and was brought to the ER and her blood glucose was 900 no evidence of DKA and was started on insulin drip and admitted to our facility. 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 Creatinine continues to improve Discontinued ceftriaxone Started her home blood pressure medications Added Coreg 12/11 Patient is feeling better Her platelet count was 9000 and ordered 1 unit of transfusion Prednisone dose decreased to 20 mg Blood sugar improving Continue with the Lantus 26 units Review of systems Constitutional: Generalized weakness Eyes: Chronic vision loss and dry eyes Cardiovascular: no chest pain, no palpitations Respiratory: no cough or dyspnea Gastrointestinal: Distended no acute change Genitourinary: no dysuria or difficulty voiding Musculoskeletal: no arthralgia or myalgia Integumentary: Multiple skin lesions Neurological: no focal weakness or numbness Psychiatric: no anxiety or depression Physical exam Head: No bruises, normal-appearing nontraumatic Eyes: Vision loss chronic Neck: full ROM Respiratory: no respiratory distress. Cardiovascular: normal rate and rhythm, S1, S2. GI/Abdominal: Soft, distended bowel sounds are normal Extremities: full range of motion, nontender. Neurological: CN II-XII intact, intact motor, intact sensation. Psychiatric: normal mood. Skin: Multiple petechiae ecchymosis Constitutional Vitals: Vital Signs Temp Pulse Resp BP Pulse Ox 98.4 F 70 18 132/58 95 12/11/21 12:01 12/11/21 06:01 12/11/21 12:01 12/11/21 14:12 12/11/21 14:12 Period Temp Pulse Resp BP Sys/Miller Pulse Ox Last 24 Hr 97.5 F-98.9 F 65-89 16-20 118-159/42-78 92-99 Intake and Output 12/11/21 12/11/21 12/11/21 05:59 13:59 21:59 Intake Total 800 720 Output Total 300 500 Balance 500 220 Weight 75.024 kg Patient Weight 12/12/21 05:59 Weight 75.024 kg Intake & Output: Intake & Output 12/11/21 12/11/21 12/11/21 05:59 13:59 21:59 Intake Total 800 720 Output Total 300 500 Balance 500 220 Weight 75.024 kg Intake: Oral 800 720 Output: Void Amount 100 500 Urine/Stool Mix 200 Other: Meal Lunch Percent of Meal Consumed 50% Feeding Ability Independent Urine Appearance Clear Clear Urine Color Dark Yellow Bright Yellow Stool Size Small Stool Color Brown Stool Consistency Loose # Bowel Movements 1 OBJ DATA Labs CBC & Chem 7: 12/11/21 05:08 12/11/21 05:08 Labs: Abnormal Lab Results 12/11/21 12/11/21 12/10/21 05:08 05:08 05:08 RBC 3.09 L Hgb 9.3 L Hct 28.1 L RDW 20.0 H Plt Count 9 L* MPV Neut % (Auto) 89.3 H Lymph % (Auto) 4.3 L Lymph # (Auto) 0.24 L VBG Lactic Acid Sodium 121 L Potassium Chloride 91 L Carbon Dioxide 21 L BUN 37 H Creatinine 1.5 H Glucose 225 H Hemoglobin A1c 8.6 H Calcium 7.9 L Total Bilirubin Alkaline Phosphatase 159 H Total Protein 5.2 L Albumin 2.3 L Albumin/Globulin Ratio 0.8 L Beta-Hydroxybutyrate Urine Glucose (UA) Urine Mucus 12/10/21 12/10/21 12/09/21 05:08 05:08 05:26 RBC 3.44 L Hgb 10.2 L Hct 31.6 L RDW 20.9 H Plt Count 13 L* MPV Neut % (Auto) 89.6 H Lymph % (Auto) 4.8 L Lymph # (Auto) 0.36 L VBG Lactic Acid Sodium 126 L 128 L Potassium Chloride 93 L 95 L Carbon Dioxide 21 L BUN 27 H 39 H Creatinine 1.4 H 1.6 H Glucose 245 H 127 H Hemoglobin A1c Calcium 8.2 L 8.3 L Total Bilirubin 1.1 H Alkaline Phosphatase 175 H 185 H Total Protein 5.5 L 5.4 L Albumin 2.7 L 2.7 L Albumin/Globulin Ratio Beta-Hydroxybutyrate Urine Glucose (UA) Urine Mucus 12/09/21 12/08/21 12/08/21 05:26 22:00 19:31 RBC 3.14 L Hgb 9.5 L Hct 28.2 L RDW 20.2 H Plt Count 14 L* MPV 11.5 H Neut % (Auto) 86.6 H Lymph % (Auto) 5.5 L Lymph # (Auto) 0.51 L VBG Lactic Acid 5.8 H* Sodium 121 L Potassium Chloride 87 L Carbon Dioxide 19 L BUN 42 H Creatinine 1.7 H Glucose 748 H* Hemoglobin A1c Calcium Total Bilirubin Alkaline Phosphatase Total Protein Albumin Albumin/Globulin Ratio Beta-Hydroxybutyrate Urine Glucose (UA) Urine Mucus 12/08/21 12/08/21 12/08/21 19:31 18:32 15:07 RBC 3.20 L Hgb 9.8 L Hct 30.0 L RDW 19.7 H Plt Count 15 L* MPV Neut % (Auto) 92.0 H Lymph % (Auto) 3.5 L Lymph # (Auto) 0.27 L VBG Lactic Acid 6.3 H* 5.3 H* Sodium Potassium Chloride Carbon Dioxide BUN Creatinine Glucose Hemoglobin A1c Calcium Total Bilirubin Alkaline Phosphatase Total Protein Albumin Albumin/Globulin Ratio Beta-Hydroxybutyrate Urine Glucose (UA) Urine Mucus 12/08/21 12/08/21 12/08/21 14:40 14:40 14:05 RBC Hgb Hct RDW Plt Count MPV Neut % (Auto) Lymph % (Auto) Lymph # (Auto) VBG Lactic Acid Sodium 118 L* Potassium 5.5 H Chloride 83 L Carbon Dioxide 19 L BUN 38 H Creatinine 1.8 H Glucose 934 H* Hemoglobin A1c Calcium Total Bilirubin 1.8 H Alkaline Phosphatase 281 H Total Protein Albumin Albumin/Globulin Ratio Beta-Hydroxybutyrate 0.61 H Urine Glucose (UA) >=500 A Urine Mucus Few A Meds: Medications Acetaminophen (Acetaminophen 325 Mg Tablet) 650 mg PO Q4-6HP PRN; Protocol PRN Reason: Per Pain Protocol/Fever > 101 Last Admin: 12/10/21 03:37 Dose: 650 mg Documented by: Albuterol/Ipratropium (Ipratropium/Albuterol 3 Ml Ampul.Neb) 3 ml NEB Q4HRT PRN PRN Reason: wheezing Amlodipine Besylate (Amlodipine 5 Mg Tablet) 5 mg PO DAILY [facility] Last Admin: 12/11/21 08:25 Dose: 5 mg Documented by: Artificial Tears (Carboxymethylcellulose Sodium 1 Each Droper.Gel) 1 each OP 3- 4XD [facility] Last Admin: 12/10/21 15:18 Dose: 1 each Documented by: Bisacodyl (Bisacodyl 10 Mg Supp.Rect) 10 mg CA Q2-3DAYS PRN PRN Reason: Constipation Carvedilol (Carvedilol 12.5 Mg Tablet) 12.5 mg PO BIDCC [facility] Last Admin: 12/11/21 08:25 Dose: 12.5 mg Documented by: Dextrose (Dextrose 50% 50 Ml Vial) 0 ml IV UD PRN PRN Reason: Per Sliding Scale Diagnostic Test (Pha) (Accu-Chek 1 Each Strip) 1 each FS ACHS [facility] Last Admin: 12/11/21 13:31 Dose: 1 each Documented by: Glucose (Dextrose 31 Gm Oral.Susp) 15 gm PO PRN PRN PRN Reason: Hypoglycemia Hydralazine HCl (Hydralazine 20 Mg/Ml Vial) 10 mg IV Q4HP PRN PRN Reason: Hypertension Sodium Chloride (Sodium Chloride 0.9%) 250 mls @ 20 mls/hr IV .[id number] [facility] Stop: 12/12/21 01:14 Insulin Glargine (Insulin Glargine, Human 1 Unit/0.01 Ml) 26 unit SQ DAILY [facility] Last Admin: 12/11/21 08:25 Dose: 26 units Documented by: Insulin Human Lispro (Insulin Lispro 1 Unit/0.01 Ml Unit) 0 unit SQ ACHS [facility]; Protocol Last Admin: 12/11/21 13:31 Dose: 3 unit Documented by: Lactulose (Lactulose 20 Gm/30 Ml Oral.Emily) 10 gm PO TID [facility] Last Admin: 12/11/21 08:25 Dose: 10 gm Documented by: Levothyroxine Sodium (Levothyroxine 88 Mcg Tablet) 88 mcg PO ACB [facility] Last Admin: 12/11/21 08:20 Dose: 88 mcg Documented by: Lorazepam (Lorazepam 2 Mg/Ml Vial) 0.5 mg IV Q2HP PRN PRN Reason: ANXIETY/SEDATION Last Admin: 12/08/21 22:33 Dose: 0.5 mg Documented by: Magnesium Hydroxide (Magnesium Hydroxide 30 Ml Oral.Susp) 30 ml PO DAILYP PRN PRN Reason: Constipation Metoclopramide HCl (Metoclopramide 10 Mg/2 Ml Vial) 5 mg IV Q6HP PRN PRN Reason: nausea Ondansetron HCl (Ondansetron 4 Mg/2 Ml Vial) 4 mg IV Q4-6HP PRN; Protocol PRN Reason: Nausea And Vomiting Last Admin: 12/10/21 15:15 Dose: 4 mg Documented by: Ondansetron HCl (Ondansetron 4 Mg Odt Tablet) 4 mg SL Q8HP PRN PRN Reason: nausea and vomiting Last Admin: 12/10/21 20:56 Dose: 4 mg Documented by: Pantoprazole Sodium (Pantoprazole 40 Mg Tablet) 20 mg PO BIDAC [facility] Last Admin: 12/11/21 08:20 Dose: 20 mg Documented by: Prednisone (Prednisone 20 Mg Tablet) 20 mg PO [facility] Last Admin: 12/11/21 08:58 Dose: 20 mg Documented by: Promethazine HCl (Promethazine 25 Mg/Ml Vial) 12.5 mg IV Q4-6HP PRN; Protocol PRN Reason: Nausea And Vomiting Senna (Sennosides 1 Tablet) 2 tab PO HSP PRN PRN Reason: Constipation Sodium Chloride (0.9 % Sodium Chloride 10 Ml Syringe) 10 ml IV Q8 [facility] Last Admin: 12/11/21 13:32 Dose: 10 ml Documented by: Spironolactone (Spironolactone 25 Mg Tablet) 100 mg PO QDAY [facility] Last Admin: 12/11/21 08:26 Dose: 100 mg Documented by: Tramadol HCl (Tramadol 50 Mg Tablet) 50 mg PO Q6HP PRN; Protocol PRN Reason: Pain Vitamin D (Vitamin D3 125 Mcg Tablet) 125 mcg PO QDAY [facility] Last Admin: 12/11/21 08:26 Dose: 125 mcg Documented by: A/P Narrative Plan of Treatment: Hyperosmolar hyperglycemia New type 2 diabetes Presented with- with a history of multiple autoimmune disorders lupus, Sjogren's syndrome and been on chronic steroids 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 History of COVID infection Unvaccinated Present with a blood glucose of more than 900 no significant acidosis no anion gap Patient was started on insulin drip and admitted to the floor Plan Patient had a very labile blood sugar going up between 200-500 Lantus dose titrated to 26 units daily and sliding scale Patient is on steroids prednisone 40 mg and dose decreased to 20 mg Diabetic education Once the patient able to titrate off the prednisone needs to follow-up closely to manage insulin and her diabetes might even able to manage with the p.o. medications Metformin is not an option due to high lactic acid levels Acute renal failure CKD stage III Continue IV hydration and follow-up kidney function Creatinine at baseline 1.4 Lactic acidosis Probably type II due to liver failure no evidence of hypotension no source of infection . Stop checking lactic acid Critical thrombocytopenia Probably a combination of ITP and liver cirrhosis Patient was seen by heme-onc specialist Dr. Burgos at [facility] and started the patient on prednisone Further recommendations to titrate the prednisone patient for platelet always been less than 20,000 and the highest seen was 23,000 No active bleeding history Patient platelet count dropped to 9000 and ordered 1 unit of platelet transfusion Nonalcoholic liver cirrhosis Portal hypertension no reported history of varices Critical thrombocytopenia Reportedly autoimmune not verified History of ascites Autoimmune disease Systemic lupus disease Sjogren's syndrome Possible ITP Followed by rheumatology and hematology on prednisone titration on 40 mg for this week and then 20 mg plan is to eventually stop as it is not helping her platelet levels Prednisone dose decreased to 20 mg today Essential hypertension Started amlodipine Continued spironolactone 100 mg home dose hydralazine as needed Time Spent With Patient Time: Total time spent is greater than 50% in coordination of care (as documented) at patient's floor/unit and/or counseling patient:
[2021-12-11] MEDS: ONDANSETRON 4 MG ODT TABLET SL PRN ×2 (16:27→20:51)
[2021-12-11] MEDS: ACETAMINOPHEN 325 MG TABLET PO PRN (21:39)
[2021-12-12] MEDS: ONDANSETRON 4 MG ODT TABLET SL PRN ×2 (05:27→15:00)
[2021-12-12] MEDS: 0.9 % SODIUM CHLORIDE 10 ML SYRINGE IV SCH ×3 (05:27→21:14)
[2021-12-12 06:52] LABS: Basophils # (Auto) 0.01 K/mcL (0.00-0.30); Basophils % (Auto) 0.2 % (0.0-2.0); Eosinophils # (Auto) 0.09 K/mcL (0.00-0.70); Eosinophils % (Auto) 1.6 % (0.0-7.0); Hematocrit 28.4 % (34.1-44.9); Hemoglobin 9.5 g/dL (11.2-15.7); Lymphocytes # (Auto) 0.36 K/mcL (1.50-4.80); Lymphocytes % (Auto) 6.3 % (15.5-49.0); Mean Cell Volume 89.6 fL (80.0-100.0); Mean Corpuscular HGB Conc 33.5 g/dL (31.0-36.0); Monocytes # (Auto) 0.28 K/mcL (0.10-0.90); Monocytes % (Auto) 4.9 % (1.0-12.0); Platelet Count 10 K/mcL (140-440); RBC 3.17 M/mcL (3.59-5.38); Red Cell Distribution Width 19.7 % (11.5-14.5); WBC 5.7 K/mcL (4.5-11.0)
[2021-12-12 07:06] LABS: ALT/SGPT 22 U/L (<40); AST/SGOT 21 U/L (<32); Albumin 2.6 gm/dL (3.2-5.2); Alkaline Phosphatase 155 U/L (39-117); Blood Urea Nitrogen 38 mg/dL (8-23); Calcium 8.2 mg/dL (8.6-10.4); Carbon Dioxide 18 mmol/L (22-30); Chloride 90 mmol/L (96-108); Globulin 2.5 gm/dL (2.2-3.7); Glomerular Filtration Rate 32; Glucose 225 mg/dL (70-105)
[2021-12-12] MEDS: PANTOPRAZOLE 40 MG TABLET PO SCH ×2 (07:19→17:20)
[2021-12-12] MEDS: LEVOTHYROXINE 88 MCG TABLET PO SCH (07:19)
[2021-12-12] MEDS: VITAMIN D3 125 MCG TABLET PO SCH (08:12)
[2021-12-12] MEDS: amLODIPine 5 MG TABLET PO SCH (08:13)
[2021-12-12] MEDS: SPIRONOLACTONE 25 MG TABLET PO SCH (08:13)
[2021-12-12] MEDS: RIFAXIMIN 550 MG TABLET PO SCH ×2 (08:13→21:14)
[2021-12-12] MEDS: predniSONE 20 MG TABLET PO SCH (08:14)
[2021-12-12] MEDS: INSULIN GLARGINE, HUMAN 1 UNIT/0.01 ML SQ SCH (08:14)
[2021-12-12] MEDS: LACTULOSE 20 GM/30 ML ORAL.SOL PO SCH ×3 (08:14→21:13)
[2021-12-12] MEDS: INSULIN LISPRO 1 UNIT/0.01 ML UNIT SQ SCH ×5 (08:14→22:50)
[2021-12-12] MEDS: CARVEDILOL 12.5 MG TABLET PO SCH ×2 (08:14→17:21)
[2021-12-12] MEDS ORDERED: SODIUM CHLORIDE 1 GM TABLET PO SCH (11:00)
[2021-12-12] MEDS ORDERED: INSULIN GLARGINE, HUMAN 1 UNIT/0.01 ML SQ SCH (11:00)
[2021-12-12] MEDS: PREGABALIN 75 MG CAPSULE PO SCH ×2 (12:39→21:13)
[2021-12-12] MEDS ORDERED: CAPSAICIN 0.025% CREAM.TOP 60GM TOPICAL PRN (13:41)
--- NOTE | 2021-12-12 13:46 | Internal Med Progress Note ---
SUBJECTIVE Subjective Patient information: Note initiated : 12/12/21 at 1:45 pm Service Date, if different from initiated Date: [] Patient: Addis Plascencia 71 y/o F admitted on 12/08/21 for blood sugar > 700, confusion. Chief Complaint: [] Interval history: 71-year-old female with a history of nonalcoholic liver cirrhosis-reportedly autoimmune, previous history of ascites hepatic encephalopathy portal hypertension Lupus nephritis, possible ITP with a platelet count always around 20,000 History of variceal banding in 2014 no further recurrence. Patient recently diagnosed with a possible ITP in October 2021 and was started on prednisone 80 mg and he has been on titration right now on 40 mg patient's developing weakness tiredness and was brought to the ER and her blood glucose was 900 no evidence of DKA and was started on insulin drip and admitted to our facility. 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 education software educator following up Creatinine continues to improve Discontinued ceftriaxone Started her home blood pressure medications Added Coreg 12/11 Patient is feeling better Her platelet count was 9000 and ordered 1 unit of transfusion Prednisone dose decreased to 20 mg Blood sugar improving Continue with the Lantus 26 units 12/12 Patient's sodium remains 121 We will start her on salt tablet 2 g 3 times daily We will recheck her sodium later today Was started on Lyrica for shingles pain Review of systems Constitutional: Generalized weakness Eyes: Chronic vision loss and dry eyes Cardiovascular: no chest pain, no palpitations Respiratory: no cough or dyspnea Gastrointestinal: Distended no acute change Genitourinary: no dysuria or difficulty voiding Musculoskeletal: no arthralgia or myalgia Integumentary: Severe shooting pain at the recent single infection Neurological: no focal weakness or numbness Psychiatric: no anxiety or depression Physical exam Head: No bruises, normal-appearing nontraumatic Eyes: Vision loss chronic Neck: full ROM Respiratory: no respiratory distress. Cardiovascular: normal rate and rhythm, S1, S2. GI/Abdominal: Soft, distended bowel sounds are normal Extremities: full range of motion, nontender. Neurological: CN II-XII intact, intact motor, intact sensation. Psychiatric: normal mood. Skin: Multiple petechiae ecchymosis Constitutional Vitals: Vital Signs Temp Pulse Resp BP Pulse Ox 97.4 F 67 20 133/64 98 12/12/21 12:01 12/12/21 00:17 12/12/21 12:01 12/12/21 12:01 12/12/21 12:01 Period Temp Pulse Resp BP Sys/Miller Pulse Ox Last 24 Hr 97.0 F-98.2 F 67-68 16-20 123-142/48-73 95-98 Intake and Output 12/11/21 12/12/21 12/12/21 21:59 05:59 13:59 Intake Total 992 990 Output Total 202 550 100 Balance 790 -550 890 Weight 77.02 kg Intake & Output: Intake & Output 12/11/21 12/12/21 12/12/21 21:59 05:59 13:59 Intake Total 992 990 Output Total 202 550 100 Balance 790 -550 890 Weight 77.02 kg Intake: IV 47 Sodium Chloride 0.9% 250 ml @ 47 20 mls/hr IV .[id number] [facility] Rx#: [id number] Oral 680 990 Blood Product 265 Output: Void Amount 200 # of times incontinent of urine 2 Urine/Stool Mix 200 350 100 Other: Meal Lunch Lunch Percent of Meal Consumed 75% 75% Feeding Ability Independent Independent Urine Appearance Clear Urine Color Bright Yellow Stool Size Moderate Stool Color Brown Stool Consistency Loose # Bowel Movements 1 OBJ DATA Labs CBC & Chem 7: 12/12/21 05:02 12/12/21 05:02 Labs: Abnormal Lab Results 12/12/21 12/12/21 12/11/21 05:02 05:02 05:08 RBC 3.17 L Hgb 9.5 L Hct 28.4 L RDW 19.7 H Plt Count 10 L* Neut % (Auto) 87.0 H Lymph % (Auto) 6.3 L Lymph # (Auto) 0.36 L Sodium 121 L 121 L Chloride 90 L 91 L Carbon Dioxide 18 L 21 L BUN 38 H 37 H Creatinine 1.6 H 1.5 H Glucose 225 H 225 H Hemoglobin A1c Calcium 8.2 L 7.9 L Total Bilirubin Alkaline Phosphatase 155 H 159 H Total Protein 5.1 L 5.2 L Albumin 2.6 L 2.3 L Albumin/Globulin Ratio 0.8 L 12/11/21 12/10/21 12/10/21 05:08 05:08 05:08 RBC 3.09 L Hgb 9.3 L Hct 28.1 L RDW 20.0 H Plt Count 9 L* Neut % (Auto) 89.3 H Lymph % (Auto) 4.3 L Lymph # (Auto) 0.24 L Sodium 126 L Chloride 93 L Carbon Dioxide 21 L BUN 27 H Creatinine 1.4 H Glucose 245 H Hemoglobin A1c 8.6 H Calcium 8.2 L Total Bilirubin 1.1 H Alkaline Phosphatase 175 H Total Protein 5.5 L Albumin 2.7 L Albumin/Globulin Ratio 12/10/21 05:08 RBC 3.44 L Hgb 10.2 L Hct 31.6 L RDW 20.9 H Plt Count 13 L* Neut % (Auto) 89.6 H Lymph % (Auto) 4.8 L Lymph # (Auto) 0.36 L Sodium Chloride Carbon Dioxide BUN Creatinine Glucose Hemoglobin A1c Calcium Total Bilirubin Alkaline Phosphatase Total Protein Albumin Albumin/Globulin Ratio Meds: Medications Acetaminophen (Acetaminophen 325 Mg Tablet) 650 mg PO Q4-6HP PRN; Protocol PRN Reason: Per Pain Protocol/Fever > 101 Last Admin: 12/11/21 21:39 Dose: 650 mg Documented by: Albuterol/Ipratropium (Ipratropium/Albuterol 3 Ml Ampul.Neb) 3 ml NEB Q4HRT PRN PRN Reason: wheezing Amlodipine Besylate (Amlodipine 5 Mg Tablet) 5 mg PO DAILY [facility] Last Admin: 12/12/21 08:13 Dose: 5 mg Documented by: Artificial Tears (Carboxymethylcellulose Sodium 1 Each Droper.Gel) 1 each OP 3- 4XD [facility] Last Admin: 12/10/21 15:18 Dose: 1 each Documented by: Bisacodyl (Bisacodyl 10 Mg Supp.Rect) 10 mg MT Q2-3DAYS PRN PRN Reason: Constipation Capsaicin (Capsaicin 0.025% Cream.Top 60gm) 1 dose TOPICAL QIDP PRN PRN Reason: Rash Capsaicin (Capsaicin 0.025% Cream.Top 60gm) 1 dose TOPICAL QIDP PRN PRN Reason: Muscle Pain Carvedilol (Carvedilol 12.5 Mg Tablet) 12.5 mg PO BIDCC [facility] Last Admin: 12/12/21 08:14 Dose: 12.5 mg Documented by: Dextrose (Dextrose 50% 50 Ml Vial) 0 ml IV UD PRN PRN Reason: Per Sliding Scale Diagnostic Test (Pha) (Accu-Chek 1 Each Strip) 1 each FS [facility] Last Admin: 12/12/21 12:07 Dose: 1 each Documented by: Glucose (Dextrose 31 Gm Oral.Susp) 15 gm PO PRN PRN PRN Reason: Hypoglycemia Hydralazine HCl (Hydralazine 20 Mg/Ml Vial) 10 mg IV Q4HP PRN PRN Reason: Hypertension Insulin Glargine (Insulin Glargine, Human 1 Unit/0.01 Ml) 30 unit SQ DAILY [facility] Insulin Human Lispro (Insulin Lispro 1 Unit/0.01 Ml Unit) 0 unit SQ [facility]; Protocol Last Admin: 12/12/21 12:07 Dose: 6 unit Documented by: Lactulose (Lactulose 20 Gm/30 Ml Oral.Emily) 10 gm PO TID [facility] Last Admin: 12/12/21 08:14 Dose: 10 gm Documented by: Levothyroxine Sodium (Levothyroxine 88 Mcg Tablet) 88 mcg PO ACB [facility] Last Admin: 12/12/21 07:19 Dose: 88 mcg Documented by: Lidocaine (Lidocaine Patch) 1 patch TOPICAL DAILY@1000 JAY Lorazepam (Lorazepam 2 Mg/Ml Vial) 0.5 mg IV Q2HP PRN PRN Reason: ANXIETY/SEDATION Last Admin: 12/08/21 22:33 Dose: 0.5 mg Documented by: Magnesium Hydroxide (Magnesium Hydroxide 30 Ml Oral.Susp) 30 ml PO DAILYP PRN PRN Reason: Constipation Metoclopramide HCl (Metoclopramide 10 Mg/2 Ml Vial) 5 mg IV Q6HP PRN PRN Reason: nausea Ondansetron HCl (Ondansetron 4 Mg/2 Ml Vial) 4 mg IV Q4-6HP PRN; Protocol PRN Reason: Nausea And Vomiting Last Admin: 12/10/21 15:15 Dose: 4 mg Documented by: Ondansetron HCl (Ondansetron 4 Mg Odt Tablet) 4 mg SL Q8HP PRN PRN Reason: nausea and vomiting Last Admin: 12/12/21 05:27 Dose: 4 mg Documented by: Pantoprazole Sodium (Pantoprazole 40 Mg Tablet) 20 mg PO BIDAC [facility] Last Admin: 12/12/21 07:19 Dose: 20 mg Documented by: Prednisone (Prednisone 20 Mg Tablet) 20 mg PO QAC [facility] Last Admin: 12/12/21 08:14 Dose: 20 mg Documented by: Pregabalin (Pregabalin 75 Mg Capsule) 75 mg PO BID [facility] Last Admin: 12/12/21 12:39 Dose: 75 mg Documented by: Promethazine HCl (Promethazine 25 Mg/Ml Vial) 12.5 mg IV Q4-6HP PRN; Protocol PRN Reason: Nausea And Vomiting Senna (Sennosides 1 Tablet) 2 tab PO HSP PRN PRN Reason: Constipation Sodium Chloride (0.9 % Sodium Chloride 10 Ml Syringe) 10 ml IV Q8 [facility] Last Admin: 12/12/21 05:27 Dose: 10 ml Documented by: Sodium Chloride (Sodium Chloride 1 Gm Tablet) 2 gm PO Q8 [facility] Spironolactone (Spironolactone 25 Mg Tablet) 100 mg PO QDAY [facility] Last Admin: 12/12/21 08:13 Dose: 100 mg Documented by: Tramadol HCl (Tramadol 50 Mg Tablet) 50 mg PO Q6HP PRN; Protocol PRN Reason: Pain Vitamin D (Vitamin D3 125 Mcg Tablet) 125 mcg PO QDAY [facility] Last Admin: 12/12/21 08:12 Dose: 125 mcg Documented by: A/P Narrative Plan of Treatment: Hyperosmolar hyperglycemia-resolved New type 2 diabetes Presented with- with a history of multiple autoimmune disorders lupus, Sjogren's syndrome and been on chronic steroids 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 medications Metformin is not an option due to high lactic acid levels Acute renal failure CKD stage III Continue IV hydration and follow-up kidney function Creatinine at baseline 1.4 Severe hyponatremia Probable SIADH and hypovolemic Patient had multiple recent for chronic hyponatremia with liver failure, chronic diuretic use, now patient is having active pain at the surgical site could be contributing SIADH Started the patient on salt tablet recheck sodium level If it is not improving will consider IV fluids Lactic acidosis Probably type II due to liver failure no evidence of hypotension no source of infection . Stop checking lactic acid Critical thrombocytopenia Probably a combination of ITP and liver cirrhosis Patient was seen by heme-onc specialist Dr. Burgos at [facility] and started the patient on prednisone Further recommendations to titrate the prednisone patient for platelet always been less than 20,000 and the highest seen was 23,000 No active bleeding history Patient platelet count dropped to 9000 on 12/11/2021 and received 1 unit of blood transfusion and her platelet count did not improve. Patient reported similar history in the past so we will avoid platelet transfusion unless she is having significant bleeding Nonalcoholic liver cirrhosis Portal hypertension no reported history of varices Critical thrombocytopenia Reportedly autoimmune not verified History of ascites Autoimmune disease Systemic lupus disease Sjogren's syndrome Possible ITP Followed by rheumatology and hematology on prednisone titration on 40 mg for this week and then 20 mg plan is to eventually stop as it is not helping her platelet levels Prednisone dose decreased to 20 mg today Essential hypertension Started amlodipine Continued spironolactone 100 mg home dose hydralazine as needed Time Spent With Patient Time: Total time spent is greater than 50% in coordination of care (as documented) at patient's floor/unit and/or counseling patient:
[2021-12-12] MEDS: SODIUM CHLORIDE 1 GM TABLET PO SCH ×2 (13:58→22:52)
[2021-12-12] MEDS: CAPSAICIN 0.025% CREAM.TOP 60GM TOPICAL PRN (13:58)
[2021-12-12] MEDS: LIDOCAINE PATCH TOPICAL SCH (13:58)
[2021-12-12] MEDS: 0.9 % SODIUM CHLORIDE 1,000 ML IV SCH (20:12)
[2021-12-13] MEDS: CAPSAICIN 0.025% CREAM.TOP 60GM TOPICAL PRN ×2 (04:08→11:21)
[2021-12-13] MEDS: 0.9 % SODIUM CHLORIDE 10 ML SYRINGE IV SCH ×2 (05:49→13:12)
[2021-12-13] MEDS: SODIUM CHLORIDE 1 GM TABLET PO SCH (05:52)
[2021-12-13] MEDS: 0.9 % SODIUM CHLORIDE 1,000 ML IV SCH (06:28)
[2021-12-13 07:04] LABS: Basophils # (Auto) 0.02 K/mcL (0.00-0.30); Basophils % (Auto) 0.3 % (0.0-2.0); Eosinophils % (Auto) 1.6 % (0.0-7.0); Hematocrit 29.8 % (34.1-44.9); Hemoglobin 9.7 g/dL (11.2-15.7); Lymphocytes # (Auto) 0.45 K/mcL (1.50-4.80); Lymphocytes % (Auto) 7.4 % (15.5-49.0); Mean Cell Volume 89.8 fL (80.0-100.0); Mean Corpuscular HGB Conc 32.6 g/dL (31.0-36.0); Monocytes # (Auto) 0.41 K/mcL (0.10-0.90); Monocytes % (Auto) 6.7 % (1.0-12.0); Platelet Count 10 K/mcL (140-440); RBC 3.32 M/mcL (3.59-5.38); Red Cell Distribution Width 19.9 % (11.5-14.5); WBC 6.1 K/mcL (4.5-11.0)
[2021-12-13 07:48] LABS: ALT/SGPT 22 U/L (<40); AST/SGOT 23 U/L (<32); Albumin 2.6 gm/dL (3.2-5.2); Albumin/Globulin Ratio 1.1 (1.0-2.3); Alkaline Phosphatase 179 U/L (39-117); Bilirubin,Total 0.9 mg/dL (0.1-1.0); Blood Urea Nitrogen 40 mg/dL (8-23); Calcium 8.2 mg/dL (8.6-10.4); Carbon Dioxide 17 mmol/L (22-30); Chloride 96 mmol/L (96-108); Globulin 2.4 gm/dL (2.2-3.7); Glomerular Filtration Rate 38; Glucose 207 mg/dL (70-105)
[2021-12-13] MEDS: INSULIN LISPRO 1 UNIT/0.01 ML UNIT SQ SCH ×2 (08:57→12:39)
[2021-12-13] MEDS ORDERED: INSULIN GLARGINE, HUMAN 1 UNIT/0.01 ML SQ SCH (09:00)
[2021-12-13] MEDS: PANTOPRAZOLE 40 MG TABLET PO SCH (09:14)
[2021-12-13] MEDS: predniSONE 20 MG TABLET PO SCH (09:14)
[2021-12-13] MEDS: LACTULOSE 20 GM/30 ML ORAL.SOL PO SCH (09:14)
[2021-12-13] MEDS: CARVEDILOL 12.5 MG TABLET PO SCH (09:15)
[2021-12-13] MEDS: amLODIPine 5 MG TABLET PO SCH (09:15)
[2021-12-13] MEDS: LIDOCAINE PATCH TOPICAL SCH (09:50)
[2021-12-13] MEDS: PREGABALIN 75 MG CAPSULE PO SCH (09:51)
[2021-12-13] MEDS: LEVOTHYROXINE 88 MCG TABLET PO SCH (09:51)
[2021-12-13] MEDS: RIFAXIMIN 550 MG TABLET PO SCH (09:51)
[2021-12-13] MEDS: VITAMIN D3 125 MCG TABLET PO SCH (09:52)
--- NOTE | 2021-12-13 11:15 | Discharge Summary ---
Discharge Provider Provider IMPORTANT FOLLOW-UP INFORMATION FOR PCP: Patient information: Note initiated : 12/13/21 at 11:14 am Service Date, if different from initiated Date: [] Patient: Addis Plascencia 71 y/o F admitted on 12/08/21 for blood sugar > 700, confusion. Chief Complaint: [] Date of admission: 12/08/21 19:00 Discharge date: 12/13/21 Primary care physician: Brad Rubio MD Consults: 12/08/21 Consult to Physician [CONS] Stat Comment: Consulting Provider: Abraham Fontaine Reason For Exam: Physician to Consult COURSE Hospital Course Hospital course: Hyperosmolar hyperglycemia-resolved New type 2 diabetes Presented with- with a history of multiple autoimmune disorders lupus, Sjogren's syndrome and been on chronic steroids 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 History of COVID infection Unvaccinated Present with a blood glucose of more than 900 no significant acidosis no anion gap Patient was started on insulin drip and admitted to the floor Plan Patient had a very labile blood sugar going up between 200-500 Lantus dose titrated to 35 units daily She will be also discharged on lispro insulin 5 units with a meal She needs to monitor her blood glucose 3 times daily for the next few days as she is adjusting the prednisone dose On prednisone 20 mg now for 5 more days and then cut back to 10 mg and follow-up with the oncology center for further management Diabetic education Once the patient able to titrate off the prednisone needs to follow-up closely to manage insulin and her diabetes might even able to manage with the p.o. medications Metformin is not an option due to high lactic acid levels Acute renal failure CKD stage III Continue IV hydration and follow-up kidney function Creatinine at baseline 1.4 Severe hyponatremia Probably hypovolemic Sodium improved with IV fluid hydration Holding torsemide this needs to be evaluated by primary care Lactic acidosis Probably type II due to liver failure no evidence of hypotension no source of infection . Stop checking lactic acid Critical thrombocytopenia Probably a combination of ITP and liver cirrhosis Patient was seen by heme-onc specialist Dr. Burgos at [facility] and started the patient on prednisone Further recommendations to titrate the prednisone patient for platelet always been less than 20,000 and the highest seen was 23,000 No active bleeding history Patient platelet count dropped to 9000 on 12/11/2021 and received 1 unit of blood transfusion and her platelet count did not improve. Patient reported similar history in the past so we will avoid platelet transfusion unless she is having significant bleeding Reportedly patient having chronic thrombocytopenia even after 5000 without any bleeding Nonalcoholic liver cirrhosis Portal hypertension no reported history of varices Critical thrombocytopenia Reportedly autoimmune not verified History of ascites Autoimmune disease Systemic lupus disease Sjogren's syndrome Possible ITP Followed by rheumatology and hematology on prednisone titration on 40 mg for this week and then 20 mg plan is to eventually stop as it is not helping her platelet levels Prednisone dose decreased to 20 mg today Patient has significant vision changes for the last few weeks and needs to establish with an clinic business manager referral sent Essential hypertension Started amlodipine Continued spironolactone 100 mg home dose 71-year-old female with a history of nonalcoholic liver cirrhosis-reportedly autoimmune, previous history of ascites hepatic encephalopathy portal hypertension Lupus nephritis, possible ITP with a platelet count always around 20,000 History of variceal banding in 2014 no further recurrence. Patient recently diagnosed with a possible ITP in October 2021 and was started on prednisone 80 mg and he has been on titration right now on 40 mg patient's developing weakness tiredness and was brought to the ER and her blood glucose was 900 no evidence of DKA and was started on insulin drip and admitted to our facility. 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 education visual educator following up Creatinine continues to improve Discontinued ceftriaxone Started her home blood pressure medications Added Coreg 12/11 Patient is feeling better Her platelet count was 9000 and ordered 1 unit of transfusion Prednisone dose decreased to 20 mg Blood sugar improving Continue with the Lantus 26 units 12/12 Patient's sodium remains 121 We will start her on salt tablet 2 g 3 times daily We will recheck her sodium later today Was started on Lyrica for shingles pain 12/13 Her sodium improved with IV hydration We will hold the torsemide until further evaluated by primary care Patient was started on Lyrica Patient feeling better blood sugar controlled in the 200s and will be discharged on Lantus and Humalog Review of systems Constitutional: Generalized weakness Eyes: Chronic vision loss and dry eyes Cardiovascular: no chest pain, no palpitations Respiratory: no cough or dyspnea Gastrointestinal: Distended no acute change Genitourinary: no dysuria or difficulty voiding Musculoskeletal: no arthralgia or myalgia Integumentary: Severe shooting pain at the recent single infection Neurological: no focal weakness or numbness Psychiatric: no anxiety or depression Physical exam Head: No bruises, normal-appearing nontraumatic Eyes: Vision loss chronic Neck: full ROM Respiratory: no respiratory distress. Cardiovascular: normal rate and rhythm, S1, S2. GI/Abdominal: Soft, distended bowel sounds are normal Extremities: full range of motion, nontender. Neurological: CN II-XII intact, intact motor, intact sensation. Psychiatric: normal mood. Skin: Multiple petechiae ecchymosis Discharge diagnosis: Hyperosmolar hyperglycemia, hYPONATREMIA Time Spent with Patient Time attestation: Total time spent providing and/or coordinating discharge services: Time spent: Greater than 30 minutes EXAM Constitutional Vitals: Temp Pulse Resp BP Pulse Ox 96.8 F L 61 17 122/64 100 12/13/21 08:01 12/13/21 00:42 12/13/21 10:01 12/13/21 10:01 12/13/21 10:01 Discharge Data Data Completed and Pending Labs on day of discharge: Labs from last 24 hours 12/13/21 12/13/21 12/12/21 05:00 05:00 22:00 WBC 6.1 RBC 3.32 L Hgb 9.7 L Hct 29.8 L MCV 89.8 MCH 29.2 MCHC 32.6 RDW 19.9 H Plt Count 10 L* MPV Neut % (Auto) 84.0 H Lymph % (Auto) 7.4 L Merrick % (Auto) 6.7 Eos % (Auto) 1.6 Baso % (Auto) 0.3 Lymph # (Auto) 0.45 L Merrick # (Auto) 0.41 Eos # (Auto) 0.10 Baso # (Auto) 0.02 Absolute Neutrophils 5.12 Sodium 126 L 121 L Potassium 4.1 Chloride 96 Carbon Dioxide 17 L Anion Gap 13.0 BUN 40 H Creatinine 1.4 H GFR Calculation 38 Glucose 207 H Calcium 8.2 L Magnesium 2.4 Total Bilirubin 0.9 AST 23 ALT 22 Alkaline Phosphatase 179 H Total Protein 5.0 L Albumin 2.6 L Globulin 2.4 Albumin/Globulin Ratio 1.1 12/12/21 18:02 WBC RBC Hgb Hct MCV MCH MCHC RDW Plt Count MPV Neut % (Auto) Lymph % (Auto) Merrick % (Auto) Eos % (Auto) Baso % (Auto) Lymph # (Auto) Merrick # (Auto) Eos # (Auto) Baso # (Auto) Absolute Neutrophils Sodium 117 L* Potassium Chloride Carbon Dioxide Anion Gap BUN Creatinine GFR Calculation Glucose Calcium Magnesium Total Bilirubin AST ALT Alkaline Phosphatase Total Protein Albumin Globulin Albumin/Globulin Ratio Discharge Plan Patient/Caregiver Discharge Instructions Activity: increase activity as tolerated Diet: Regular Diet Instructions: Diabetes Mellitus Type 2 in Adults, Heat Treater (GEN) Activity Restrictions/Additional Instructions: Establis care with the clinic business manager in 1 to 2 weeks continue prednisone 20 mg for 5 more days and then changed to 10 mg for 7 days, then changed to 5 mg for 7 days and eventually stop Follow-up with the oncology center for your infusions and regarding the prednisone Follow-up with the primary care in 1 week to manage and follow-up on your diabetes Prescriptions: New pregabalin 75 mg Capsule 75 mg PO BID Qty: 60 0RF Lantus Solostar U-100 Insulin 100 unit/mL (3 mL) insulin pen 35 unit subcut QDAY Qty: 2 3RF insulin lispro [Humalog KwikPen Insulin] 100 unit/mL insulin pen 5 unit subcut .TIDM Qty: 2 3RF Rx Instructions: 5 units with each meal Continued cholecalciferol (vitamin D3) 125 mcg (5,000 unit) tablet 125 mcg PO QDAY Qty: 90 3RF pantoprazole 20 mg tablet,delayed release (DR/EC) 20 mg PO BIDAC 0RF spironolactone [Aldactone] 100 mg tablet 100 mg PO QDAY 0RF rifaximin 550 mg tablet 550 mg PO BID 0RF lactulose 10 gram/15 mL solution 10 g PO TID 0RF levothyroxine 88 mcg tablet 88 mcg PO ACB 0RF ondansetron 4 mg tablet,disintegrating 4 mg PO Q8HP PRN (Reason: nausea and vomiting) 0RF prednisone 20 mg tablet 2 tab PO QDAY 0RF Discontinued torsemide 20 mg tablet 20 mg PO QDAY 0RF Follow Up Plan Follow up with: Diego Schmidt MD [Physician] - (Significant reduction in vision - H/o Sjogren syndrome) Brad Rubio MD [Primary Care Provider] - Patient Disposition: Home Health Service Prognosis: Fair Rehab Potential: Serious I certify that the patient requires SNF services: No Overall status at discharge: patient is progressing back to baseline Discharge Orders: Discharge Order (Routine); Ordered 12/13/21 Ordered By: Abraham Fontaine
[2021-12-13] MEDS: ONDANSETRON 4 MG ODT TABLET SL PRN (11:26)
== END 2021-12-13 14:00 | disposition home health service (06) | DRG 638 ==
LOC: ED 14:22 → ICU 19:00
PROVIDERS: ADMIT Internal Medicine; ATTEND Internal Medicine

== ENCOUNTER 2021-12-19 19:42 | Inpatient (IN) ==
[2021-12-19 21:08] LABS: Basophils # (Auto) 0.02 K/mcL (0.00-0.30); Basophils % (Auto) 0.4 % (0.0-2.0); Eosinophils # (Auto) 0.02 K/mcL (0.00-0.70); Eosinophils % (Auto) 0.4 % (0.0-7.0); Hematocrit 32.2 % (34.1-44.9); Hemoglobin 10.5 g/dL (11.2-15.7); Lymphocytes # (Auto) 0.56 K/mcL (1.50-4.80); Lymphocytes % (Auto) 10.4 % (15.5-49.0); Mean Cell Volume 90.4 fL (80.0-100.0); Mean Corpuscular HGB Conc 32.6 g/dL (31.0-36.0); Monocytes # (Auto) 0.43 K/mcL (0.10-0.90); Neutrophils % (Auto) 80.8 % (38.0-78.0); Platelet Count 18 K/mcL (140-440); RBC 3.56 M/mcL (3.59-5.38); Red Cell Distribution Width 20.4 % (11.5-14.5); WBC 5.4 K/mcL (4.5-11.0)
[2021-12-19 21:48] LABS: ALT/SGPT 35 U/L (<40); AST/SGOT 48 U/L (<32); Alkaline Phosphatase 213 U/L (39-117); Bilirubin,Total 1.9 mg/dL (0.1-1.0); Blood Urea Nitrogen 32 mg/dL (8-23); Calcium 9.2 mg/dL (8.6-10.4); Carbon Dioxide 24 mmol/L (22-30); Chloride 100 mmol/L (96-108); Globulin 2.9 gm/dL (2.2-3.7); Glomerular Filtration Rate 35; Glucose 178 mg/dL (70-105)
[2021-12-19 21:50] LABS: Appearance,Urine CLEAR (Clear); Bilirubin,Urine Negative (Negative); Color,Urine YELLOW; Culture Indicated,Urine No; Glucose,Urine (UA) Negative (Negative); Ketones,Urine Negative (Negative); Leukocyte Esterase,Urine Negative /uL (Negative); Mucus,Urine FEW /hpf; Nitrate,Urine Negative (Negative); Protein,Urine Negative (Negative); Specific Gravity,Urine 1.008 (1.000-1.035); Urine Blood >=1.0 mg/dL (Negative); Urine Hyaline Cast 6 /lph (0-2); Urine RBC 28 /hpf (0-3); Urine Squamous Epithelial Cell < 1 /hpf (0-4); Urine Transitional Epi Cells < 1 /hpf (0-2); Urine WBC 1 /hpf (0-4); Urobilinogen,Urine Negative
[2021-12-19] MEDS ORDERED: LACTULOSE 20 GM/30 ML ORAL.SOL PO ONE ×3 (22:15→23:56)
[2021-12-20] MEDS ORDERED: ONDANSETRON 4 MG/2 ML VIAL IV PRN ×2 (03:19→07:33)
--- NOTE | 2021-12-20 04:13 | Emergency Department Note ---
HPI General Chief complaint: Altered Mental Status Stated complaint: Confusion Time Seen by Provider: 12/19/21 20:13 Source: family Mode of arrival: ambulatory Limitations: altered mental status History of Present Illness HPI Narrative: Narrative: Ms. Plascencia is a 71-year-old female with a history of nonalcoholic cirrhosis, recurrent episodes of hepatic encephalopathy, lupus, diabetes, recent DKA or HHS, ITP. At baseline she is on some steroids, insulin, lactulose. She is generally well looked after by her family members. However they notice for the past day or 2 she was becoming encephalopathic again, more confused. Has increasing hand tremor. She says this is how she gets when she is getting a flareup of her hepatic encephalopathy. They were trying to increase her lactulose at home but did not seem to be helping much. No fevers no URI symptoms no chest pain or cardiorespiratory complaints, no new abdominal pain or distention, no urinary symptoms no focal neurologic complaints. Patient is al tered but able to answer simple yes or no questions. Also in regards to her known ITP she currently takes steroids which they think contributed to her recent episode of DKA causing hyperglycemia. Has received platelet transfusions in the past however seems to be doing better on the steroids and no reports of any current bleeding, does have some varying aged bruises to her extremities at baseline History is obtained in combination with daughters at bedside as well as patient who can answer yes or no questions Related Data Home Medications Medication Instructions Recorded Confirmed pantoprazole 20 mg tablet,delayed 20 mg PO BIDAC tab 11/14/19 12/19/21 release rifaximin 550 mg tablet 550 mg PO BID tab 05/06/21 12/19/21 spironolactone 100 mg tablet 100 mg PO QDAY tab 05/06/21 12/19/21 (Aldactone) lactulose 10 gram/15 mL oral 10 g PO TID ml 06/21/21 12/19/21 solution levothyroxine 88 mcg tablet 88 mcg PO ACB 12/08/21 12/19/21 ondansetron 4 mg disintegrating 4 mg PO Q8HP PRN 12/08/21 12/19/21 tablet prednisone 20 mg tablet 10 mg PO QDAY 12/08/21 12/19/21 torsemide 20 mg tablet 1 tab PO TID 12/19/21 12/19/21 Previous Rx's Medication Instructions Recorded cholecalciferol (vitamin D3) 125 125 mcg PO QDAY #90 tab 10/13/21 mcg (5,000 unit) tablet Accu-Chek 1 ea SUBCUT ACS #1 ea 12/13/21 Accu-Chek Guide Glucose Meter #1 ea NS 12/13/21 (blood-glucose meter) Accu-Chek Guide test strips (blood #100 ea NS 12/13/21 sugar diagnostic) blood sugar diagnostic (Accu-Chek #100 ea 12/13/21 Sabrina Plus test strp) blood-glucose meter #1 ea 12/13/21 blood-glucose meter (Accu-Chek #1 ea 12/13/21 Sabrina Plus Meter) insulin lispro 100 unit/mL 5 unit (0.05 mL) SUBCUT .TIDM #2 12/13/21 subcutaneous pen (Humalog KwikPen pen (U-100) Insulin) lancets (Accu-Chek Fastclix Lancet #100 ea 12/13/21 Drum) lancets 26 gauge (Lancets,Ultra #100 ea 12/13/21 Thin) pen needle, diabetic 29 gauge x #100 ea 12/13/21 1/" pregabalin 75 mg capsule 75 mg PO BID #60 cap 12/13/21 insulin glargine 100 unit/mL (3 35 unit (0.35 mL) SUBCUT QDAY #15 12/17/21 mL) subcutaneous pen (Basaglar ml KwikPen U-100 Insulin) Allergies Allergy/AdvReac Type Severity Reaction Status Date / Time hydrochlorothiazide AdvReac Mild hyponatremi Verified 12/19/21 19:49 a hydrocodone AdvReac Mild Nausea Verified 12/19/21 19:49 Hydroxychloroquine AdvReac Mild Nausea Verified 12/19/21 19:49 [From Plaquenil] Review of Systems ROS ROS Narrative: Narrative: Full review systems unobtainable given mental status PFSH Narrative Patient History Narrative: Narrative: Medical/Surgical/Family History All Active Problems Abdominal pain, RUQ (Chronic) Ascites (Chronic) Cirrhosis of liver (Chronic) Connective tissue disease (Chronic) Elevated serum glutamic pyruvic transaminase (SGPT) level (Chronic) Esophageal varices (Chronic 09/26/13) Gastroesophageal reflux (Chronic) Hernia, hiatal (Chronic) Hypertension, essential, benign (Chronic) Hypothyroidism (Chronic) Osteoarthritis (Chronic) Polyarthropathy, inflammatory (Chronic) Portal hypertension (Chronic) Sjogren's syndrome (Chronic) Splenomegaly (Chronic) Thyroid nodule (Chronic) Vertigo (Chronic) Portal vein thrombosis (Chronic) Urinary tract infection (Chronic) Systemic lupus erythematosus (Chronic) Iron deficiency anemia (Chronic) Edema (Chronic) Insomnia (Chronic) Dysphagia (Chronic) Colonic adenoma (Chronic) Osteoporosis (Chronic) Hemolytic anemia (Chronic) Lower back pain (Chronic) Fatigue (Chronic) Parotid swelling (Chronic) Back pain (Chronic) Sicca syndrome (Chronic) Acquired pancytopenia (Chronic) Hemorrhoid (Chronic) Adenomatous colon polyp (Chronic ~2008) IBS (irritable bowel syndrome) (Chronic) Vitamin D deficiency (Chronic) Anemia (Chronic) Confusion (Acute) Stage 1 acute kidney injury (Acute) Delirium (Acute) Other secondary thrombocytopenia (Acute) Anemia, normocytic normochromic (Acute) Hypokalemia (Acute) Chronic kidney disease (CKD) stage G4/A1, severely decreased glomerular filtration rate (GFR) between 15-29 mL/min/1.73 square meter and albuminuria creatinine ratio less than 30 mg/g (Acute) Localized edema due to fluid overload (Chronic) Medicare annual wellness visit, subsequent (Acute) Acute ITP (Acute) Generalized weakness (Acute) Diabetes mellitus (Acute) Diabetes mellitus (Acute) Acute hepatic encephalopathy (Acute) Thrombocytopenia (Acute) Medical History Abdominal bloating Abdominal pain, RUQ Acquired pancytopenia Acute ITP Adenomatous colon polyp (~2008) Anemia Ascites H/O (12/11/2014-Karen) Back pain Blood in stool Melenotic Stool (05/08/14-Dr Jones) Body mass index (BMI) 35 or more 37.3 Breast cancer Status post right partial mastectomies, radiation, hormonal therapy Bronchitis (09/25/14) Cirrhosis of liver ? autoimmune etiology Colonic adenoma 2008 Confusion Conjunctivitis (09/25/14) OD Conjunctivitis Connective tissue disease Cough Dehydration Dry eyes Dry mouth Dysphagia Edema Elevated liver enzymes Mild Elevated serum glutamic pyruvic transaminase (SGPT) level Encounter for long-term (current) use of high-risk medication Epistaxis Esophageal varices (09/26/13) Esophagitis, reflux Fatigue Gastric erosion (05/27/14-Dr Jones) Gastric polyps Bleeding gastric polyps found on EGD in August 2019 We have not received the pathology report We will request those records Gastritis and gastroduodenitis Gastroesophageal reflux Hand pain Hemolysis Hemolytic anemia Dr. Mendoza, but it looks like she has not seen him for at least a year. We will monitor CBC for stability. 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 Lower back pain Medicare annual wellness visit, subsequent Medication side effect lower extremity edema likely secondary to amlodipine Nasal discharge Daily bloody nasal discharge Nausea & vomiting Night sweats intermittently past 6 months Osteoarthritis Osteoporosis not treated, can't take Fosamax d/t esophageal varices Pancytopenia H/O Parotid swelling Pathological fracture, right humerus, sequela PND (post-nasal drip) Bloody Polyarthropathy, inflammatory Portal hypertension H/o Portal vein thrombosis Resolved and off of Lovenox Reactive airway disease (09/25/14) Rectal bleeding Renal failure Seborrheic keratoses Sutures are removed Sicca syndrome Sicca syndrome with keratoconjunctivitis Sjogren's syndrome Skin lesion Left forearm measuring 5 x 6 mm by calipers. Excised. Splenomegaly Stricture of right ureter right. UVJ. Systemic lupus erythematosus Thrombocytopenia Thyroid nodule 2007 Stable and benign Upper GI bleed Secondary to gastritis UTI (urinary tract infection) Vertigo BPPV Vitamin D deficiency Wrist pain Left Surgical History Fracture, humerus 05/08/15 ORIF History of biopsy (01/23/14) Liver History of X3 History of carpal tunnel release X2 History of cholecystectomy (01/27/14) History of colonoscopy (02/15/17) 01/03/13 - Uncomplicated internal hemorrhoids, few diverticuli. 10/12/15 - hemorrhoids. Dr. Jones. 02/15/17 - Hemorrhoids-7 year follow up. History of endoscopy Variceal Banding Multiple times by Dr. Orozco. History of esophagogastroduodenoscopy (01/06/17) 09/11/19 - Dr. Sunny Story 10/02/14 - Dr. Jones 06/04/15 Dr Jones - esophageal varices were banded. Gastritis. Gastric ulcer. Yeast. 09/04/15 Dr Jones - varices. H. pylori. Gastritis. 01/06/17-Dr. Jones - varices. gastritis. One year F/U. 01/03/18-Dr Jones-gastritis, scarring, small varices, possible esophageal dysmotility. 05/24/18-Dr Jones-upper GI bleed secondary to gastritis. Esophageal varices. Esophagitis. History of hysterectomy MARIA DOLORES/BSO History of knee surgery X5 History of liver biopsy (01/27/14) History of lumpectomy of right breast 2005 And sentinel node biopsy followed by radiation. History of partial mastectomy (~2005) History of right breast biopsy 03/2006 History of surgery Gastric Varices 01/2014, 02/2014, 03/2014, 04/17 Dr. Jones History of thyroid surgery tumor removal History of thyroidectomy (~1979) Status post cataract extraction of both eyes with insertion of intraocular lens Remote Family History Mother Chronic Kidney Disease Unknown Diabetes mellitus Motor vehicle accident Father Family history of arthritis Cardiac disease Essential hypertension Malignant neoplasm Lung cancer Heart disease Type 2 diabetes mellitus Sister Cardiac disease Rheumatic fever Brother Rheumatic fever Cerebrovascular accident Prostate cancer Family/Other Family history of arthritis Rheumatoid arthritis Social History Smoking Status: Never smoker Alcohol Intake Frequency: does not drink Substance Use: does not use Exam Narrative Narrative: Narrative: Constitutional: normally developed, nontoxic but encephalopathic appearing. Head: Normocephalic, atraumatic, Eyes: Mild pallor ENT: Moist mucus membranes, no gingival bleeding Neck: Supple, Cardiac: Normal heart sounds, palpable radial pulses, 1+ lower extremity edema chronic asymmetric left greater than right which also is chronic per family Pulmonary: Normal respiratory effort. Breath sounds clear, no wheeze, rhonchi, rales, Gastrointestinal: Abdomen soft, non-distended, non-tender, Musculoskeletal: No gross deformities, well perfused Skin: warm, dry, varying degrees of subacute appearing bruises to her extremities no appreciable large hematomas no signs of acute bleeding Neuro: Alert and oriented x self only, has bilateral asterixis, otherwise she has equal gross symmetric strength x4 extremities and moving them equally. Face symmetric, PERRLA General Limitations: altered mental status Course Vital Signs Vital signs: Vital Signs Temperature 36.2 C 12/19/21 19:46 Pulse Rate 102 H 12/19/21 19:46 Respiratory Rate 17 12/19/21 19:46 Blood Pressure 159/74 12/19/21 19:46 Pulse Oximetry (%) 98 12/19/21 19:46 Temperature 36.2 C 12/19/21 19:46 Pulse Rate 111 H 12/20/21 03:11 Respiratory Rate 15 12/20/21 03:11 Blood Pressure 159/65 12/20/21 03:00 Pulse Oximetry (%) 98 12/20/21 03:11 MDM MDM Narrative Medical decision making narrative: Narrative: 71-year-old female multiple comorbidities primarily diabetes, lupus, nonalcoholic cirrhosis with recurrent encephalopathy, ITP. Presenting with a flareup of her typical symptoms of hepatic encephalopathy. Vitals are stable she is afebrile overall nontoxic but is acutely altered, oriented x1. She has asterixis she has no other focal neurologic deficits, no signs of active bleeding. Work-up is initiated COVID-negative CBC no leukocytosis, baseline hemoglobin of 10.5, known thrombocytopenia platelets today of 18 this is actually improved from previous, usually she is around 10, this is the best she has been since September. Given her thrombocytopenia there is no signs of active bleeding she is not acutely anemic, also given her encephalopathy I do not feel repeat CT imaging of the head is indicated. She has had this many times before per family, platelets are above 10 and improved from previous, also she has no lateralizing or focal neurologic deficits to suggest intracranial hemorrhage Her electrolytes show baseline CKD creatinine 1.5, glucose of 178 LFTs slightly elevated as well as her bilirubin likely due to her known chronic liver disease also bilirubin has been at this level in the recent past as well Ammonia is elevated 74; she is usually around 40. Likely associated with her hepatic encephalopathy Urinalysis no infection Twelve-lead EKG sinus rhythm 96, MO, QRS, QTc within normal, no STEMI criteria Patient with hepatic encephalopathy, I have spoken with hospitalist for admission, he requests 60 mg of lactulose every hour for at least 2 doses to assess for any clinical resolution before potential admission We have proceeded with that, she has been given 2 doses, starting to have slight bowel movements, also had an episode of nausea vomiting, not yet significant improvement of her mental status. Hospitalists accepts admission Lab Data Result diagrams: 12/19/21 20:22 12/19/21 20:22 Labs: Lab Results 12/19/21 12/19/21 12/19/21 Range/Units 20: 20: 20: WBC 5.4 (4.5-11.0) K/mcL RBC 3.56 L (3.59-5.38) M/mcL Hgb 10.5 L (11.2-15.7) g/dL Hct 32.2 L (34.1-44.9) % MCV 90.4 (80.0-100.0) fL MCH 29.5 (26.0-34.0) pg MCHC 32.6 (31.0-36.0) g/dL RDW 20.4 H (11.5-14.5) % Plt Count 18 L* (140-440) K/mcL MPV (7.4-10.4) fL Neut % (Auto) 80.8 H (38.0-78.0) % Lymph % (Auto) 10.4 L (15.5-49.0) % [place] % (Auto) 8.0 (1.0-12.0) % Eos % (Auto) 0.4 (0.0-7.0) % Baso % (Auto) 0.4 (0.0-2.0) % Lymph # (Auto) 0.56 L (1.50-4.80) K/mcL [place] # (Auto) 0.43 (0.10-0.90) K/mcL Eos # (Auto) 0.02 (0.00-0.70) K/mcL Baso # (Auto) 0.02 (0.00-0.30) K/mcL Absolute Neutrophils 4.34 (1.80-8.00) K/mcL Sodium 137 (133-145) mmol/L Potassium 3.7 (3.3-5.1) mmol/L Chloride 100 (96-108) mmol/L Carbon Dioxide 24 (22-30) mmol/L Anion Gap 13.0 (8.0-16.0) BUN 32 H (8-23) mg/dL Creatinine 1.5 H (0.6-1.1) mg/dL GFR Calculation 35 Glucose 178 H (70-105) mg/dL Calcium 9.2 (8.6-10.4) mg/dL Total Bilirubin 1.9 H (0.1-1.0) mg/dL AST 48 H (<32) U/L ALT 35 (<40) U/L Alkaline Phosphatase 213 H (39-117) U/L Ammonia 74 H (11-51) umol/L Total Protein 5.9 (5.9-8.4) gm/dL Albumin 3.0 L (3.2-5.2) gm/dL Globulin 2.9 (2.2-3.7) gm/dL Albumin/Globulin Ratio 1.0 (1.0-2.3) Urine Color Urine Appearance (Clear) Urine pH (5.0-9.0) Ur Specific [place] (1.000-1.035) Urine Protein (Negative) mg/dL Urine Glucose (UA) (Negative) mg/dL Urine Ketones (Negative) mg/dL Urine Occult Blood (Negative) mg/dL Urine Nitrate (Negative) Urine Bilirubin (Negative) mg/dL Urine Urobilinogen mg/dL Ur Leukocyte Esterase (Negative) /uL Urine RBC (0-3) /hpf Urine WBC (0-4) /hpf Ur Squamous Epith Cells (0-4) /hpf Ur Transition Epith Cell (0-2) /hpf Urine Bacteria (0) /hpf Hyaline Casts (0-2) /lph Urine Mucus (None) /hpf Ur Culture Indicated? 12/19/21 Range/Units 20:55 WBC (4.5-11.0) K/mcL RBC (3.59-5.38) M/mcL Hgb (11.2-15.7) g/dL Hct (34.1-44.9) % MCV (80.0-100.0) fL MCH (26.0-34.0) pg MCHC (31.0-36.0) g/dL RDW (11.5-14.5) % Plt Count (140-440) K/mcL MPV (7.4-10.4) fL Neut % (Auto) (38.0-78.0) % Lymph % (Auto) (15.5-49.0) % [place] % (Auto) (1.0-12.0) % Eos % (Auto) (0.0-7.0) % Baso % (Auto) (0.0-2.0) % Lymph # (Auto) (1.50-4.80) K/mcL [place] # (Auto) (0.10-0.90) K/mcL Eos # (Auto) (0.00-0.70) K/mcL Baso # (Auto) (0.00-0.30) K/mcL Absolute Neutrophils (1.80-8.00) K/mcL Sodium (133-145) mmol/L Potassium (3.3-5.1) mmol/L Chloride (96-108) mmol/L Carbon Dioxide (22-30) mmol/L Anion Gap (8.0-16.0) BUN (8-23) mg/dL Creatinine (0.6-1.1) mg/dL GFR Calculation Glucose (70-105) mg/dL Calcium (8.6-10.4) mg/dL Total Bilirubin (0.1-1.0) mg/dL AST (<32) U/L ALT (<40) U/L Alkaline Phosphatase (39-117) U/L Ammonia (11-51) umol/L Total Protein (5.9-8.4) gm/dL Albumin (3.2-5.2) gm/dL Globulin (2.2-3.7) gm/dL Albumin/Globulin Ratio (1.0-2.3) Urine Color Yellow Urine Appearance Clear (Clear) Urine pH 6.0 (5.0-9.0) Ur Specific [place] 1.008 (1.000-1.035) Urine Protein Negative (Negative) mg/dL Urine Glucose (UA) Negative (Negative) mg/dL Urine Ketones Negative (Negative) mg/dL Urine Occult Blood >=1.0 A (Negative) mg/dL Urine Nitrate Negative (Negative) Urine Bilirubin Negative (Negative) mg/dL Urine Urobilinogen Negative mg/dL Ur Leukocyte Esterase Negative (Negative) /uL Urine RBC 28 H (0-3) /hpf Urine WBC 1 (0-4) /hpf Ur Squamous Epith Cells < 1 (0-4) /hpf Ur Transition Epith Cell < 1 (0-2) /hpf Urine Bacteria None (0) /hpf Hyaline Casts 6 H (0-2) /lph Urine Mucus Few A (None) /hpf Ur Culture Indicated? No ED POC Tests ED POC Tests: BHUPENDRA - SARS Antigen Negative Discharge Plan Patient/Caregiver Discharge Instructions Pt seen by DIETITIAN/PA only: No Clinical Impression: Acute hepatic encephalopathy, Thrombocytopenia Patient Disposition: Xfer As Inpt ([facility]) Condition: Serious Follow up with: Brad Rubio MD [Primary Care Provider] - Prescriptions: No Action cholecalciferol (vitamin D3) 125 mcg (5,000 unit) tablet 125 mcg PO QDAY Qty: 90 3RF pantoprazole 20 mg tablet,delayed release (DR/EC) 20 mg PO BIDAC 0RF spironolactone [Aldactone] 100 mg tablet 100 mg PO QDAY 0RF rifaximin 550 mg tablet 550 mg PO BID 0RF lactulose 10 gram/15 mL solution 10 g PO TID 0RF Basaglar KwikPen U-100 Insulin 100 unit/mL (3 mL) insulin pen 35 unit subcut QDAY Qty: 15 3RF levothyroxine 88 mcg tablet 88 mcg PO ACB 0RF ondansetron 4 mg tablet,disintegrating 4 mg PO Q8HP PRN (Reason: nausea and vomiting) 0RF prednisone 20 mg tablet 10 mg PO QDAY 0RF pregabalin 75 mg Capsule 75 mg PO BID Qty: 60 0RF insulin lispro [Humalog KwikPen Insulin] 100 unit/mL insulin pen 5 unit subcut .TIDM Qty: 2 3RF Rx Instructions: 5 units with each meal (DME) blood-glucose meter Kit See Rx Instructions .Route Qty: 1 1RF Rx Instructions: As directed (DME) lancets [Lancets,Ultra Thin] 26 gauge misc See Rx Instructions .Route Qty: 100 2RF Rx Instructions: As directed (DME) blood-glucose meter [Accu-Chek Sabrina Plus Meter] Misc See Rx Instructions .Route Qty: 1 1RF Rx Instructions: As directed (DME) Accu-Chek Sabrina Plus test strp Strip See Rx Instructions .Route Qty: 100 2RF Rx Instructions: As directed (DME) lancets [Accu-Chek Fastclix Lancet Drum] Misc See Rx Instructions .Route Qty: 100 2RF Rx Instructions: As directed Accu-Chek 1 ea subcut ACS Qty: 1 2RF (DME) blood-glucose meter [Accu-Chek Guide Glucose Meter] Mis See Rx Instructions .Route Qty: 1 1RF Rx Instructions: Three times a day blood sugar check (DME) Accu-Chek Guide test strips Strip See Rx Instructions .Route Qty: 100 2RF Rx Instructions: Three times a day glucose check (DME) pen needle, diabetic 29 gauge x 1/2" needle See Rx Instructions .Route Qty: 100 2RF Rx Instructions: Three times a day torsemide 20 mg tablet 1 tab PO TID 0RF
--- NOTE | 2021-12-20 06:22 | XRay Report ---
INDICATION: AMS, confusion TECHNIQUE: AP portable semierect upright chest x-ray COMPARISON: Previous chest x-rays dated 06/15/2021, 04/07/2021, 11/12/2019 FINDINGS: Lungs:Lungs are negative. No focal pulmonary parenchymal infiltrate or mass Heart, vascular:No significant cardiomegaly. Pulmonary vascularity is normal. No pulmonary edema or pulmonary congestion Mediastinum, griselda:No mediastinal widening. No hilar mass Pleura:Chronic elevation right hemidiaphragm. No evidence for pleural effusion Skeletal:Previous open reduction and internal fixation of right shoulder fracture. There are surgical clips in the right axilla and clips projected over the left lung apex IMPRESSION: 1. No acute abnormality 2. No interval change Interpreted and Authenticated by: Abdifatah Downs 12/20/21
[2021-12-20 06:40] LABS: Basophils # (Auto) 0.02 K/mcL (0.00-0.30); Basophils % (Auto) 0.4 % (0.0-2.0); Eosinophils # (Auto) 0.03 K/mcL (0.00-0.70); Eosinophils % (Auto) 0.6 % (0.0-7.0); Hematocrit 31.5 % (34.1-44.9); Lymphocytes # (Auto) 0.63 K/mcL (1.50-4.80); Lymphocytes % (Auto) 12.2 % (15.5-49.0); Mean Cell Volume 91.8 fL (80.0-100.0); Mean Corpuscular HGB Conc 31.7 g/dL (31.0-36.0); Monocytes % (Auto) 7.7 % (1.0-12.0); Neutrophils % (Auto) 79.1 % (38.0-78.0); Platelet Count 16 K/mcL (140-440); RBC 3.43 M/mcL (3.59-5.38); Red Cell Distribution Width 20.5 % (11.5-14.5); WBC 5.2 K/mcL (4.5-11.0)
[2021-12-20 07:00] LABS: ALT/SGPT 34 U/L (<40); AST/SGOT 45 U/L (<32); Albumin 2.6 gm/dL (3.2-5.2); Albumin/Globulin Ratio 0.9 (1.0-2.3); Alkaline Phosphatase 199 U/L (39-117); Bilirubin,Direct 0.6 mg/dL (<0.3); Bilirubin,Total 1.8 mg/dL (0.1-1.0); Blood Urea Nitrogen 34 mg/dL (8-23); Calcium 9.2 mg/dL (8.6-10.4); Carbon Dioxide 24 mmol/L (22-30); Chloride 107 mmol/L (96-108); Glomerular Filtration Rate 38; Glucose 210 mg/dL (70-105); Lactate Dehydrogenase 297 U/L (135-225); Triglycerides 122 mg/dL (<150); Uric Acid 12.1 mg/dL (2.5-8.0)
--- NOTE | 2021-12-20 07:21 | EKG ---
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
[2021-12-20] MEDS ORDERED: DEXTROSE 50% 50 ML VIAL IV PRN (07:33)
[2021-12-20] MEDS ORDERED: LACTULOSE 20 GM/30 ML ORAL.SOL PR ONE (07:33)
[2021-12-20] MEDS ORDERED: DEXTROSE 31 GM ORAL.SUSP PO PRN (07:33)
[2021-12-20] MEDS: DOCUSATE SODIUM 100 MG CAPSULE PO SCH ×2 (09:32→20:26)
[2021-12-20] MEDS: SPIRONOLACTONE 25 MG TABLET PO SCH (09:32)
[2021-12-20] MEDS: TORSEMIDE 20 MG TABLET PO SCH ×2 (09:32→21:03)
[2021-12-20] MEDS: RIFAXIMIN 550 MG TABLET PO SCH ×2 (09:32→21:04)
--- NOTE | 2021-12-20 12:01 | Internal Med History&Physical ---
HPI History of Present Illness Patient information: Note initiated : 12/20/21 at 11:56 am Service Date, if different from initiated Date: [as above] Patient: Addis Plascencia 71 y/o F admitted on 12/20/21 for Confusion. Chief Complaint: [ALOC] Chief complaint: Hepatic encephalopathy History of present illness: Ms. Plascencia is a 71 year old F with a past medical history significant for COKER cirrhosis complicated by esophageal varices, and portosystemic encephalopathy who presents to the hospital with altered sensorium. History was obtained secondhand from chart review, nursing and ER staff. The patient lives with chandrika cole, and was given nearly 16 ounces of lactulose yesterday without improvement of her clinical status. She was previously prescribed rifaximin however it was never filled per my conversation with pharmacy. On presentation she was hemodynamically stable and afebrile. She was given 60 g of lactulose in the ER overnight without significant improvement. This morning, she has had multiple bowel movements and her mental status is slightly improved however she remains encephalopathic. The hospital service was asked admit the patient for further management and evaluation of her hepatic encephalopathy. Review of Systems ROS unobtainable: due to mental status PFSH PFSH All Active Problems Abdominal pain, RUQ (Chronic) Ascites (Chronic) Cirrhosis of liver (Chronic) Connective tissue disease (Chronic) Elevated serum glutamic pyruvic transaminase (SGPT) level (Chronic) Esophageal varices (Chronic 09/26/13) Gastroesophageal reflux (Chronic) Hernia, hiatal (Chronic) Hypertension, essential, benign (Chronic) Hypothyroidism (Chronic) Osteoarthritis (Chronic) Polyarthropathy, inflammatory (Chronic) Portal hypertension (Chronic) Sjogren's syndrome (Chronic) Splenomegaly (Chronic) Thyroid nodule (Chronic) Vertigo (Chronic) Portal vein thrombosis (Chronic) Urinary tract infection (Chronic) Systemic lupus erythematosus (Chronic) Iron deficiency anemia (Chronic) Edema (Chronic) Insomnia (Chronic) Dysphagia (Chronic) Colonic adenoma (Chronic) Osteoporosis (Chronic) Hemolytic anemia (Chronic) Lower back pain (Chronic) Fatigue (Chronic) Parotid swelling (Chronic) Back pain (Chronic) Sicca syndrome (Chronic) Acquired pancytopenia (Chronic) Hemorrhoid (Chronic) Adenomatous colon polyp (Chronic ~2008) IBS (irritable bowel syndrome) (Chronic) Vitamin D deficiency (Chronic) Anemia (Chronic) Confusion (Acute) Stage 1 acute kidney injury (Acute) Delirium (Acute) Other secondary thrombocytopenia (Acute) Anemia, normocytic normochromic (Acute) Hypokalemia (Acute) Chronic kidney disease (CKD) stage G4/A1, severely decreased glomerular filtration rate (GFR) between 15-29 mL/min/1.73 square meter and albuminuria creatinine ratio less than 30 mg/g (Acute) Localized edema due to fluid overload (Chronic) Medicare annual wellness visit, subsequent (Acute) Acute ITP (Acute) Generalized weakness (Acute) Diabetes mellitus (Acute) Diabetes mellitus (Acute) Acute hepatic encephalopathy (Acute) Thrombocytopenia (Acute) Medical History Abdominal bloating Abdominal pain, RUQ Acquired pancytopenia Acute ITP Adenomatous colon polyp (~2008) Anemia Ascites H/O (12/11/2014-Karen) Back pain Blood in stool Melenotic Stool (05/08/14-Dr Jones) Body mass index (BMI) 35 or more 37.3 Breast cancer Status post right partial mastectomies, radiation, hormonal therapy Bronchitis (09/25/14) Cirrhosis of liver ? autoimmune etiology Colonic adenoma 2008 Confusion Conjunctivitis (09/25/14) OD Conjunctivitis Connective tissue disease Cough Dehydration Dry eyes Dry mouth Dysphagia Edema Elevated liver enzymes Mild Elevated serum glutamic pyruvic transaminase (SGPT) level Encounter for long-term (current) use of high-risk medication Epistaxis Esophageal varices (09/26/13) Esophagitis, reflux Fatigue Gastric erosion (05/27/14-Dr Jones) Gastric polyps Bleeding gastric polyps found on EGD in August 2019 We have not received the pathology report We will request those records Gastritis and gastroduodenitis Gastroesophageal reflux Hand pain Hemolysis Hemolytic anemia Dr. Mendoza, but it looks like she has not seen him for at least a year. We will monitor CBC for stability. Hemorrhoid Hepatic fibrosis Hernia, hiatal History of colonic polyps 2008 [place] History of mammogram (01/25/16) Hypertension, essential, benign Hyponatremia Hypothyroidism IBS (irritable bowel syndrome) Insomnia Iron deficiency anemia Joint pain Leukopenia Lightheaded Hgb 9.6 (12.3) Localized edema due to fluid overload long term acute care registered nurse use of drug Benlysta Lower back pain Medicare annual wellness visit, subsequent Medication side effect lower extremity edema likely secondary to amlodipine Nasal discharge Daily bloody nasal discharge Nausea & vomiting Night sweats intermittently past 6 months Osteoarthritis Osteoporosis not treated, can't take Fosamax d/t esophageal varices Pancytopenia H/O Parotid swelling Pathological fracture, right humerus, sequela PND (post-nasal drip) Bloody Polyarthropathy, inflammatory Portal hypertension H/o Portal vein thrombosis Resolved and off of Lovenox Reactive airway disease (09/25/14) Rectal bleeding Renal failure Seborrheic keratoses Sutures are removed Sicca syndrome Sicca syndrome with keratoconjunctivitis Sjogren's syndrome Skin lesion Left forearm measuring 5 x 6 mm by calipers. Excised. Splenomegaly Stricture of right ureter right. UVJ. Systemic lupus erythematosus Thrombocytopenia Thyroid nodule 2007 Stable and benign Upper GI bleed Secondary to gastritis UTI (urinary tract infection) Vertigo BPPV Vitamin D deficiency Wrist pain Left Surgical History Fracture, humerus 05/08/15 OR[facility] History of biopsy (01/23/14) Liver History of X3 History of carpal tunnel release X2 History of cholecystectomy (01/27/14) History of colonoscopy (02/15/17) 01/03/13 - Uncomplicated internal hemorrhoids, few diverticuli. 10/12/15 - hemorrhoids. Dr. Jones. 02/15/17 - Hemorrhoids-7 year follow up. History of endoscopy Variceal Banding Multiple times by Dr. Orozco. History of esophagogastroduodenoscopy (01/06/17) 09/11/19 - Dr. Sunny Story 10/02/14 - Dr. Jones 06/04/15 Dr Jones - esophageal varices were banded. Gastritis. Gastric ulcer. Yeast. 09/04/15 Dr Jones - varices. H. pylori. Gastritis. 01/06/17-Dr. Jones - varices. gastritis. One year F/U. 01/03/18-Dr Jones-gastritis, scarring, small varices, possible esophageal dysmotility. 05/24/18-Dr Jones-upper GI bleed secondary to gastritis. Esophageal varices. Esophagitis. History of hysterectomy MARIA DOLORES/BSO History of knee surgery X5 History of liver biopsy (01/27/14) History of lumpectomy of right breast 2005 And sentinel node biopsy followed by radiation. History of partial mastectomy (~2005) History of right breast biopsy 03/2006 History of surgery Gastric Varices 01/2014, 02/2014, 03/2014, 04/17 Dr. Jones History of thyroid surgery tumor removal History of thyroidectomy (~1979) Status post cataract extraction of both eyes with insertion of intraocular lens Remote Family History Mother Chronic Kidney Disease Unknown Diabetes mellitus Motor vehicle accident Father Family history of arthritis Cardiac disease Essential hypertension Malignant neoplasm Lung cancer Heart disease Type 2 diabetes mellitus Sister Cardiac disease Rheumatic fever Brother Rheumatic fever Cerebrovascular accident Prostate cancer Family/Other Family history of arthritis Rheumatoid arthritis Social History household members: spouse housing: house lives independently: Yes marital status: education level: college 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 other: 3 children well-balanced diet: daily or most days physical activity: walking frequency: 3-4 times per week smoking status: Never smoker alcohol intake frequency: does not drink substance use type: does not use MEDS/ALLERGIES Home Medications and Allergies Home Medications Medication Instructions Recorded Confirmed Type pantoprazole 20 mg tablet,delayed 20 mg PO BIDAC tab 11/14/19 12/20/21 History release rifaximin 550 mg tablet 550 mg PO BID tab 05/06/21 12/20/21 History spironolactone 100 mg tablet 100 mg PO QDAY tab 05/06/21 12/20/21 History (Aldactone) lactulose 10 gram/15 mL oral 10 g PO TID ml 06/21/21 12/20/21 History solution cholecalciferol (vitamin D3) 125 125 mcg PO QDAY #90 tab 10/13/21 12/20/21 Rx mcg (5,000 unit) tablet levothyroxine 88 mcg tablet 88 mcg PO ACB 12/08/21 12/20/21 History ondansetron 4 mg disintegrating 4 mg PO Q8HP PRN 12/08/21 12/20/21 History tablet prednisone 20 mg tablet 10 mg PO QDAY 12/08/21 12/20/21 History Accu-Chek 1 ea SUBCUT ACS #1 ea 12/13/21 12/20/21 Rx Accu-Chek Guide Glucose Meter #1 ea NS 12/13/21 12/20/21 Rx (blood-glucose meter) Accu-Chek Guide test strips (blood #100 ea NS 12/13/21 12/20/21 Rx sugar diagnostic) blood sugar diagnostic (Accu-Chek #100 ea 12/13/21 12/20/21 Rx Sabrina Plus test strp) blood-glucose meter #1 ea 12/13/21 12/20/21 Rx blood-glucose meter (Accu-Chek #1 ea 12/13/21 12/20/21 Rx Sabrina Plus Meter) insulin lispro 100 unit/mL 5 unit (0.05 mL) SUBCUT .TIDM #2 12/13/21 12/20/21 Rx subcutaneous pen (Humalog KwikPen pen (U-100) Insulin) lancets (Accu-Chek Fastclix Lancet #100 ea 12/13/21 12/20/21 Rx Drum) lancets 26 gauge (Lancets,Ultra #100 ea 12/13/21 12/20/21 Rx Thin) pen needle, diabetic 29 gauge x #100 ea 12/13/21 12/20/21 Rx 1/2" pregabalin 75 mg capsule 75 mg PO BID #60 cap 12/13/21 12/20/21 Rx insulin glargine 100 unit/mL (3 35 unit (0.35 mL) SUBCUT QDAY #15 12/17/21 12/20/21 Rx mL) subcutaneous pen (Basaglar ml KwikPen U-100 Insulin) torsemide 20 mg tablet 1 tab PO TID 12/19/21 12/20/21 History Allergies Allergy/AdvReac Type Severity Reaction Status Date / Time hydrochlorothiazide AdvReac Mild hyponatremi Verified 12/20/21 05:32 a hydrocodone AdvReac Mild Nausea Verified 12/20/21 05:32 Hydroxychloroquine AdvReac Mild Nausea Verified 12/20/21 05:32 [From Plaquenil] EXAM Constitutional Vitals: Temp Pulse Resp BP Pulse Ox 98.8 F 95 H 19 172/68 98 12/20/21 06:01 12/20/21 10:00 12/20/21 10:00 12/20/21 10:00 12/20/21 10:00 General appearance: average body habitus Head Head exam: Present atraumatic, normal inspection and normocephalic Eye Eye exam: Present EOMI, normal appearance and PERRL; Absent conjunctival injection ENT ENT exam: Present normal exam; Absent mucous membranes dry Neck Neck exam: Present full ROM; Absent lymphadenopathy Respiratory Respiratory exam: Present normal respiratory exam and CTAB; Absent decreased b reath sounds, respiratory distress or wheezes Cardiovascular Cardiovascular exam: Present normal rate and rhythm and RRR; Absent JVD GI/Abdominal GI/Abdominal exam: Present normal bowel sounds and soft; Absent diminished bowel sounds, distended, guarding, mass, rebound or tenderness Neurological Exam Neurological exam: Present alert and altered Psychiatric Psychiatric exam: Present normal affect and normal mood Skin Skin exam: Present intact and warm; Absent erythema, pallor, petechiae or rash DATA Data Completed and Pending Labs: Labs from last 24 hours 12/20/21 12/20/21 12/20/21 05:23 05:23 05:23 WBC 5.2 RBC 3.43 L Hgb 10.0 L Hct 31.5 L MCV 91.8 MCH 29.2 MCHC 31.7 RDW 20.5 H Plt Count 16 L* MPV Neut % (Auto) 79.1 H Lymph % (Auto) 12.2 L [place] % (Auto) 7.7 Eos % (Auto) 0.6 Baso % (Auto) 0.4 Lymph # (Auto) 0.63 L [place] # (Auto) 0.40 Eos # (Auto) 0.03 Baso # (Auto) 0.02 Absolute Neutrophils 4.09 Sodium 142 Potassium 3.5 Chloride 107 Carbon Dioxide 24 Anion Gap 11.0 BUN 34 H Creatinine 1.4 H GFR Calculation 38 Glucose 210 H Uric Acid 12.1 H Calcium 9.2 Phosphorus 3.0 Magnesium 2.1 Total Bilirubin 1.8 H Direct Bilirubin 0.6 H GGT 164 H AST 45 H ALT 34 Alkaline Phosphatase 199 H Ammonia 65 H Lactate Dehydrogenase 297 H Total Protein 5.6 L Albumin 2.6 L Globulin 3.0 Albumin/Globulin Ratio 0.9 L Triglycerides 122 Urine Color Urine Appearance Urine pH Ur Specific [place] Urine Protein Urine Glucose (UA) Urine Ketones Urine Occult Blood Urine Nitrate Urine Bilirubin Urine Urobilinogen Ur Leukocyte Esterase Urine RBC Urine WBC Ur Squamous Epith Cells Ur Transition Epith Cell Urine Bacteria Hyaline Casts Urine Mucus Ur Culture Indicated? 12/19/21 12/19/21 12/19/21 20:55 20:22 20:22 WBC RBC Hgb Hct MCV MCH MCHC RDW Plt Count MPV Neut % (Auto) Lymph % (Auto) [place] % (Auto) Eos % (Auto) Baso % (Auto) Lymph # (Auto) [place] # (Auto) Eos # (Auto) Baso # (Auto) Absolute Neutrophils Sodium 137 Potassium 3.7 Chloride 100 Carbon Dioxide 24 Anion Gap 13.0 BUN 32 H Creatinine 1.5 H GFR Calculation 35 Glucose 178 H Uric Acid Calcium 9.2 Phosphorus Magnesium Total Bilirubin 1.9 H Direct Bilirubin GGT AST 48 H ALT 35 Alkaline Phosphatase 213 H Ammonia 74 H Lactate Dehydrogenase Total Protein 5.9 Albumin 3.0 L Globulin 2.9 Albumin/Globulin Ratio 1.0 Triglycerides Urine Color Yellow Urine Appearance Clear Urine pH 6.0 Ur Specific [place] 1.008 Urine Protein Negative Urine Glucose (UA) Negative Urine Ketones Negative Urine Occult Blood >=1.0 A Urine Nitrate Negative Urine Bilirubin Negative Urine Urobilinogen Negative Ur Leukocyte Esterase Negative Urine RBC 28 H Urine WBC 1 Ur Squamous Epith Cells < 1 Ur Transition Epith Cell < 1 Urine Bacteria None Hyaline Casts 6 H Urine Mucus Few A Ur Culture Indicated? No 12/19/21 20:22 WBC 5.4 RBC 3.56 L Hgb 10.5 L Hct 32.2 L MCV 90.4 MCH 29.5 MCHC 32.6 RDW 20.4 H Plt Count 18 L* MPV Neut % (Auto) 80.8 H Lymph % (Auto) 10.4 L [place] % (Auto) 8.0 Eos % (Auto) 0.4 Baso % (Auto) 0.4 Lymph # (Auto) 0.56 L [place] # (Auto) 0.43 Eos # (Auto) 0.02 Baso # (Auto) 0.02 Absolute Neutrophils 4.34 Sodium Potassium Chloride Carbon Dioxide Anion Gap BUN Creatinine GFR Calculation Glucose Uric Acid Calcium Phosphorus Magnesium Total Bilirubin Direct Bilirubin GGT AST ALT Alkaline Phosphatase Ammonia Lactate Dehydrogenase Total Protein Albumin Globulin Albumin/Globulin Ratio Triglycerides Urine Color Urine Appearance Urine pH Ur Specific [place] Urine Protein Urine Glucose (UA) Urine Ketones Urine Occult Blood Urine Nitrate Urine Bilirubin Urine Urobilinogen Ur Leukocyte Esterase Urine RBC Urine WBC Ur Squamous Epith Cells Ur Transition Epith Cell Urine Bacteria Hyaline Casts Urine Mucus Ur Culture Indicated? A/P Assessment and plan (1) Cirrhosis of liver: Status: Chronic Comment: ? autoimmune etiology Qualifiers: Hepatic cirrhosis type: unspecified hepatic cirrhosis Ascites presence: with ascites Qualified Code(s): K74.60 - Unspecified cirrhosis of liver; R18.8 - Other ascites (2) Esophageal varices: Status: Chronic Qualifiers: Esophageal varices type: secondary Esophageal varices bleeding: with bleeding Qualified Code(s): I85.11 - Secondary esophageal varices with bleeding (3) Hypothyroidism: Status: Chronic Qualifiers: Hypothyroidism type: acquired Qualified Code(s): E03.9 - Hypothyroidism, unspecified (4) Portal hypertension: Status: Chronic Comment: H/o (5) Hepatic encephalopathy: Status: Resolved (6) Other secondary thrombocytopenia: Status: Acute Narrative A/P Narrative: The patient has not responded to home dose of lactulose and at this point will need aggressive therapy to treat her portosystemic encephalopathy. I have restarted rifaximin 550 mg p.o. twice daily. If need be we will start lactulose via NG tube or lactulose enemas. I have decreased her dose from 60 g p.o. every 2 hours to 30 g 3 times daily. We will monitor her clinical status. Of note we will hold her home Lyrica. In terms of patient's ascites, will continue home dose of torsemide and Aldactone. The patient will be on insulin sliding scale. Time Spent With Patient Time: Total time spent is greater than 50% in coordination of care (as documented) at patient's floor/unit and/or counseling patient: Total time spent with greater than 50% in coordination of care (as documented) at patient's floor/unit and/or counseling patient:: 50 - 70 minutes
[2021-12-20] MEDS: INSULIN LISPRO 1 UNIT/0.01 ML UNIT SQ SCH ×3 (12:27→21:04)
[2021-12-20] MEDS: 0.9 % SODIUM CHLORIDE 10 ML SYRINGE IV SCH ×2 (14:01→21:04)
[2021-12-20] MEDS: LACTULOSE 20 GM/30 ML ORAL.SOL PO SCH ×2 (14:01→21:04)
--- NOTE | 2021-12-20 14:47 | Cat Scan Report ---
INDICATION: ALOC COMPARISON: None. TECHNIQUE: Axial noncontrast-enhanced images through the brain. Sagittally and coronally reformatted images. FINDINGS: Cerebral hemispheres:Negative. No intra-axial abnormality. No intra-axial hematoma. No localized mass effect.Brain volume is within normal limits for age. Periventricular white matter is negative without significant attenuation abnormality. Brainstem and cerebellum:No intra-axial abnormality Extra-axial:No acute hemorrhage. No subdural or epidural hematoma. No subarachnoid hemorrhage. Basilar cisterns are normal Calvarial:No calvarial fracture. No lytic lesion Temporal bones are negative. No destructive lesions Soft tissue, orbits, sinuses:Nearly confluent soft tissue density within a left sphenoid sinus IMPRESSION: 1. Left sphenoid sinusitis 2. No acute or focal abnormality The exam was performed using radiation dose optimization techniques including, but not limited to, automated exposure control, adjustment of the mA and/or kV according to patient size and use of iterative reconstruction technique. Interpreted and Authenticated by: Abdifatah Downs 12/20/21
[2021-12-20] MEDS: SENNOSIDES 1 TABLET PO SCH (21:04)
[2021-12-21] MEDS: 0.9 % SODIUM CHLORIDE 10 ML SYRINGE IV SCH ×3 (05:52→20:49)
[2021-12-21 06:34] LABS: ALT/SGPT 29 U/L (<40); AST/SGOT 41 U/L (<32); Albumin 2.5 gm/dL (3.2-5.2); Alkaline Phosphatase 181 U/L (39-117); Blood Urea Nitrogen 28 mg/dL (8-23); Calcium 8.2 mg/dL (8.6-10.4); Carbon Dioxide 24 mmol/L (22-30); Chloride 97 mmol/L (96-108); Globulin 2.6 gm/dL (2.2-3.7); Glomerular Filtration Rate 41; Glucose 120 mg/dL (70-105)
[2021-12-21] MEDS: INSULIN LISPRO 1 UNIT/0.01 ML UNIT SQ SCH ×4 (07:35→21:17)
[2021-12-21] MEDS: LEVOTHYROXINE 88 MCG TABLET PO SCH (07:35)
[2021-12-21 07:39] LABS: Basophils # (Auto) 0.04 K/mcL (0.00-0.30); Basophils % (Auto) 0.6 % (0.0-2.0); Eosinophils # (Auto) 0.11 K/mcL (0.00-0.70); Eosinophils % (Auto) 1.6 % (0.0-7.0); Hematocrit 28.9 % (34.1-44.9); Hemoglobin 9.2 g/dL (11.2-15.7); Lymphocytes # (Auto) 0.95 K/mcL (1.50-4.80); Lymphocytes % (Auto) 13.6 % (15.5-49.0); Mean Cell Volume 91.7 fL (80.0-100.0); Mean Corpuscular HGB Conc 31.8 g/dL (31.0-36.0); Monocytes # (Auto) 0.46 K/mcL (0.10-0.90); Monocytes % (Auto) 6.6 % (1.0-12.0); Neutrophils % (Auto) 77.6 % (38.0-78.0); Platelet Count 13 K/mcL (140-440); RBC 3.15 M/mcL (3.59-5.38); Red Cell Distribution Width 20.7 % (11.5-14.5)
[2021-12-21] MEDS: SPIRONOLACTONE 25 MG TABLET PO SCH (08:36)
[2021-12-21] MEDS: TORSEMIDE 20 MG TABLET PO SCH ×2 (08:37→21:18)
[2021-12-21] MEDS: LACTULOSE 20 GM/30 ML ORAL.SOL PO SCH ×3 (08:37→21:18)
[2021-12-21] MEDS: DOCUSATE SODIUM 100 MG CAPSULE PO SCH ×2 (08:37→21:11)
[2021-12-21] MEDS: RIFAXIMIN 550 MG TABLET PO SCH ×2 (08:37→21:18)
[2021-12-21] MEDS ORDERED: POTASSIUM CHLORIDE 20 MEQ TABLET PO SCH (09:00)
--- NOTE | 2021-12-21 10:44 | Internal Med Progress Note ---
SUBJECTIVE Subjective Patient information: Note initiated : 12/21/21 at 10:42 am Service Date, if different from initiated Date: [] Patient: Addis Plascencia 71 y/o F admitted on 12/20/21 for Confusion. Chief Complaint: [ALOC] Principal diagnosis: Portosystemic encephalopathy. Interval history: The patient's mentation has significantly improved. She is alert and oriented x3. She is able to carry a full conversation. When I had further questions the patient, there is definite indication, that she has been noncompliant with her lactulose at home. Constitutional Vitals: Vital Signs Temp Pulse Resp BP Pulse Ox 97.7 F 91 H 19 151/60 97 12/21/21 07:59 12/20/21 12:10 12/21/21 10:09 12/21/21 10:09 12/21/21 10:09 Period Temp Pulse Resp BP Sys/Miller Pulse Ox Last 24 Hr 97.7 F-98.8 F 91 13-22 143-174/56-75 96-98 Intake and Output 12/20/21 12/21/21 12/21/21 21:59 05:59 13:59 Intake Total 720 420 Output Total 800 700 200 Balance -80 -280 -200 Weight 69.899 kg 69.899 kg Patient Weight 12/22/21 05:59 Weight 69.899 kg Intake & Output: Intake & Output 12/20/21 12/21/21 12/21/21 21:59 05:59 13:59 Intake Total 720 420 Output Total 800 700 200 Balance -80 -280 -200 Weight 69.899 kg 69.899 kg Intake: Oral 720 420 Output: Void Amount 450 200 Urine/Stool Mix 700 250 Stool 100 Other: Meal Dinner Breakfast Percent of Meal Consumed 75% 100% Feeding Ability Independent Urine Appearance Clear Clear Urine Color Light Yasmine Dark Yellow Urine Odor Normal Stool Size Moderate Smear Stool Color Brown Brown Yellow Stool Consistency Watery Manuela Head Head exam: Present atraumatic and normal inspection Eye Eye exam: Present normal appearance ENT ENT exam: Present mucous membranes moist, normal exam and normal external ear exam Neck Neck exam: Present normal inspection Respiratory Respiratory exam: Present normal respiratory exam Cardiovascular Cardiovascular exam: Present normal rate and rhythm GI/Abdominal GI/Abdominal exam: Present normal bowel sounds Back Exam Back exam: Present normal inspection Neurological Exam Neurological exam: Present alert and oriented X3 Skin Skin exam: Present intact and warm OBJ DATA Labs CBC & Chem 7: 12/21/21 05:12 12/21/21 05:12 Labs: Abnormal Lab Results 12/21/21 12/21/21 12/20/21 05:12 05:12 05:23 RBC 3.15 L Hgb 9.2 L Hct 28.9 L RDW 20.7 H Plt Count 13 L* Neut % (Auto) Lymph % (Auto) 13.6 L Lymph # (Auto) 0.95 L Sodium 130 L BUN 28 H Creatinine 1.3 H Glucose 120 H Uric Acid Calcium 8.2 L Total Bilirubin 2.0 H Direct Bilirubin GGT AST 41 H Alkaline Phosphatase 181 H Ammonia 65 H Lactate Dehydrogenase Total Protein 5.1 L Albumin 2.5 L Albumin/Globulin Ratio Urine Occult Blood Urine RBC Hyaline Casts Urine Mucus 12/20/21 12/20/21 12/19/21 05:23 05:23 20:55 RBC 3.43 L Hgb 10.0 L Hct 31.5 L RDW 20.5 H Plt Count 16 L* Neut % (Auto) 79.1 H Lymph % (Auto) 12.2 L Lymph # (Auto) 0.63 L Sodium BUN 34 H Creatinine 1.4 H Glucose 210 H Uric Acid 12.1 H Calcium Total Bilirubin 1.8 H Direct Bilirubin 0.6 H GGT 164 H AST 45 H Alkaline Phosphatase 199 H Ammonia Lactate Dehydrogenase 297 H Total Protein 5.6 L Albumin 2.6 L Albumin/Globulin Ratio 0.9 L Urine Occult Blood >=1.0 A Urine RBC 28 H Hyaline Casts 6 H Urine Mucus Few A 12/19/21 12/19/21 12/19/21 20:22 20:22 20:22 RBC 3.56 L Hgb 10.5 L Hct 32.2 L RDW 20.4 H Plt Count 18 L* Neut % (Auto) 80.8 H Lymph % (Auto) 10.4 L Lymph # (Auto) 0.56 L Sodium BUN 32 H Creatinine 1.5 H Glucose 178 H Uric Acid Calcium Total Bilirubin 1.9 H Direct Bilirubin GGT AST 48 H Alkaline Phosphatase 213 H Ammonia 74 H Lactate Dehydrogenase Total Protein Albumin 3.0 L Albumin/Globulin Ratio Urine Occult Blood Urine RBC Hyaline Casts Urine Mucus Meds: Medications Dextrose (Dextrose 50% 50 Ml Vial) 0 ml IV UD PRN PRN Reason: Per Sliding Scale Diagnostic Test (Pha) (Accu-Chek 1 Each Strip) 1 each FS [facility] Last Admin: 12/21/21 07:35 Dose: 1 each Documented by: Docusate Sodium (Docusate Sodium 100 Mg Capsule) 100 mg PO BID [facility] Last Admin: 12/21/21 08:37 Dose: Not Given Documented by: Glucose (Dextrose 31 Gm Oral.Susp) 15 gm PO PRN PRN PRN Reason: Hypoglycemia Insulin Human Lispro (Insulin Lispro 1 Unit/0.01 Ml Unit) 0 unit SQ [facility]; Protocol Last Admin: 12/21/21 07:35 Dose: Not Given Documented by: Lactulose (Lactulose 20 Gm/30 Ml Oral.Emily) 30 gm PO TID [facility] Last Admin: 12/21/21 08:37 Dose: 30 gm Documented by: Levothyroxine Sodium (Levothyroxine 88 Mcg Tablet) 88 mcg PO ACB [facility] Last Admin: 12/21/21 07:35 Dose: 88 mcg Documented by: Ondansetron HCl (Ondansetron 4 Mg/2 Ml Vial) 4 mg IV Q4HP PRN; Protocol PRN Reason: Nausea And Vomiting Ondansetron HCl (Ondansetron 4 Mg/2 Ml Vial) 4 mg IV Q6HP PRN PRN Reason: Nausea And Vomiting Potassium Chloride (Potassium Chloride 20 Meq Tablet) 40 meq PO 0900 [facility] Stop: 12/21/21 12:00 Last Admin: 12/21/21 09:03 Dose: 40 meq Documented by: Senna (Sennosides 1 Tablet) 2 tab PO HS [facility] Last Admin: 12/20/21 21:04 Dose: Not Given Documented by: Sodium Chloride (0.9 % Sodium Chloride 10 Ml Syringe) 10 ml IV Q8 [facility] Last Admin: 12/21/21 05:52 Dose: 10 ml Documented by: Spironolactone (Spironolactone 25 Mg Tablet) 100 mg PO QDAY [facility] Last Admin: 12/21/21 08:36 Dose: 100 mg Documented by: Torsemide (Torsemide 20 Mg Tablet) 10 mg PO BID [facility] Last Admin: 12/21/21 08:37 Dose: 10 mg Documented by: A/P Assessment and plan (1) Cirrhosis of liver: Status: Chronic Comment: ? autoimmune etiology Qualifiers: Hepatic cirrhosis type: unspecified hepatic cirrhosis Ascites presence: with ascites Qualified Code(s): K74.60 - Unspecified cirrhosis of liver; R18.8 - Other ascites (2) Esophageal varices: Status: Chronic Qualifiers: Esophageal varices type: secondary Esophageal varices bleeding: with bleeding Qualified Code(s): I85.11 - Secondary esophageal varices with bleeding (3) Hypothyroidism: Status: Chronic Qualifiers: Hypothyroidism type: acquired Qualified Code(s): E03.9 - Hypothyroidism, unspecified (4) Portal hypertension: Status: Chronic Comment: H/o (5) Hepatic encephalopathy: Status: Resolved (6) Other secondary thrombocytopenia: Status: Acute Narrative A/P Narrative: The patient has not responded to home dose of lactulose and at this point will need aggressive therapy to treat her portosystemic encephalopathy. I have restarted rifaximin 550 mg p.o. twice daily. If need be we will start lactulose via NG tube or lactulose enemas. I have decreased her dose from 60 g p.o. every 2 hours to 30 g 3 times daily. We will monitor her clinical status. Of note we will hold her home Lyrica. In terms of patient's ascites, will continue home dose of torsemide and Aldactone. The patient will be on insulin sliding scale. 12/21: The patient's mentation has returned to baseline. She will be transferred out of the ICU to [facility]. She will work with physical therapy. Time Spent With Patient Time: Total time spent is greater than 50% in coordination of care (as documented) at patient's floor/unit and/or counseling patient: Total time spent with greater than 50% in coordination of care (as documented) at patient's floor/unit and/or counseling patient:: 25 - 35 minutes
[2021-12-21 10:46] LABS: INR 1.7 (0.9-1.1)
[2021-12-21] MEDS: SENNOSIDES 1 TABLET PO SCH (21:11)
[2021-12-22] MEDS: 0.9 % SODIUM CHLORIDE 10 ML SYRINGE IV SCH (05:05)
[2021-12-22] MEDS: INSULIN LISPRO 1 UNIT/0.01 ML UNIT SQ SCH ×2 (07:16→11:30)
[2021-12-22] MEDS: LEVOTHYROXINE 88 MCG TABLET PO SCH (07:16)
[2021-12-22] MEDS: TORSEMIDE 20 MG TABLET PO SCH (08:39)
[2021-12-22] MEDS: LACTULOSE 20 GM/30 ML ORAL.SOL PO SCH (08:40)
[2021-12-22] MEDS: SPIRONOLACTONE 25 MG TABLET PO SCH (08:40)
[2021-12-22] MEDS: RIFAXIMIN 550 MG TABLET PO SCH (08:40)
[2021-12-22] MEDS: DOCUSATE SODIUM 100 MG CAPSULE PO SCH (08:41)
--- NOTE | 2021-12-22 11:28 | Discharge Summary ---
Discharge Provider Provider IMPORTANT FOLLOW-UP INFORMATION FOR PCP: 1. Palliative care f/u Patient information: Note initiated : 12/22/21 at 11:27 am Service Date, if different from initiated Date: [as above] Patient: Addis Plascencia 71 y/o F admitted on 12/20/21 for Confusion. Chief Complaint: [ALOC] Date of admission: 12/20/21 04:21 Discharge date: 12/22/21 Primary care physician: Brad Rubio MD Admitting clinician: Maira Campos Consults: 12/19/21 Consult to Physician [CONS] Stat Comment: Consulting Provider: Maira Campos Reason For Exam: Physician to Consult Attending physician on discharge: Maira Campos COURSE Hospital Course Hospital course: History of present illness: Ms. Plascencia is a 71 year old F with a past medical history significant for COKER cirrhosis complicated by esophageal varices, and portosystemic encephalopathy who presents to the hospital with altered sensorium. History was obtained secondhand from chart review, nursing and ER staff. The patient lives with family, and was given nearly 16 ounces of lactulose yesterday without improvement of her clinical status. She was previously prescribed rifaximin however it was never filled per my conversation with pharmacy. On presentation she was hemodynamically stable and afebrile. She was given 60 g of lactulose in the ER overnight without significant improvement. This morning, she has had multiple bowel movements and her mental status is slightly improved however she remains encephalopathic. The hospital service was asked admit the patient for further management and evaluation of her hepatic encephalopathy. The patient's portosystemic encephalopathy was in the setting of medication noncompliance. She was quite encephalopathic on presentation with asterixis on examination. On arrival, CT head was performed and was unrevealing except for left sphenoid sinusitis. The patient was started on lactulose 60 g p.o. every 2 hours initially. Her mentation improved within 24 hours. She was brought back down to 30 g 3 times daily. She worked with physical therapy and did quite well. She will be discharged home. It is recommended she follow-up with her primary care and with palliative care in outpatient setting. 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 Time Spent with Patient Time attestation: Total time spent providing and/or coordinating discharge services: Time spent: Greater than 30 minutes EXAM Constitutional Vitals: Temp Pulse Resp BP Pulse Ox 97.8 F 95 H 12 134/66 97 12/22/21 07:14 12/22/21 07:14 12/22/21 07:14 12/22/21 07:14 12/22/21 07:14 General appearance: average body habitus Head Head exam: Present atraumatic, normal inspection and normocephalic Eye Eye exam: Present EOMI, normal appearance and PERRL; Absent conjunctival injection ENT ENT exam: Present normal exam; Absent mucous membranes dry Neck Neck exam: Present full ROM; Absent lymphadenopathy Respiratory Respiratory exam: Present normal respiratory exam and CTAB; Absent decreased breath sounds, respiratory distress or wheezes Cardiovascular Cardiovascular exam: Present normal rate and rhythm and RRR; Absent JVD GI/Abdominal GI/Abdominal exam: Present normal bowel sounds and soft; Absent diminished bowel sounds, distended, guarding, mass, rebound or tenderness Neurological Exam Neurological exam: Present alert, CN II-XII intact and oriented X3 Psychiatric Psychiatric exam: Present normal affect and normal mood Skin Skin exam: Present intact and warm; Absent erythema, pallor, petechiae or rash Discharge Plan Patient/Caregiver Discharge Instructions Activity: as per physical therapy Diet: Low Sodium (2gm) Prescriptions: Continued cholecalciferol (vitamin D3) 125 mcg (5,000 unit) tablet 125 mcg PO QDAY Qty: 90 3RF pantoprazole 20 mg tablet,delayed release (DR/EC) 20 mg PO BIDAC 0RF spironolactone [Aldactone] 100 mg tablet 100 mg PO QDAY 0RF rifaximin 550 mg tablet 550 mg PO BID 0RF lactulose 10 gram/15 mL solution 10 g PO TID 0RF Basaglar KwikPen U-100 Insulin 100 unit/mL (3 mL) insulin pen 35 unit subcut QDAY Qty: 15 3RF levothyroxine 88 mcg tablet 88 mcg PO ACB 0RF ondansetron 4 mg tablet,disintegrating 4 mg PO Q8HP PRN (Reason: nausea and vomiting) 0RF prednisone 20 mg tablet 10 mg PO QDAY 0RF pregabalin 75 mg Capsule 75 mg PO BID Qty: 60 0RF insulin lispro [Humalog KwikPen Insulin] 100 unit/mL insulin pen 5 unit subcut .TIDM Qty: 2 3RF Rx Instructions: 5 units with each meal (DME) blood-glucose meter Kit See Rx Instructions .Route Qty: 1 1RF Rx Instructions: As directed (DME) lancets [Lancets,Ultra Thin] 26 gauge misc See Rx Instructions .Route Qty: 100 2RF Rx Instructions: As directed (DME) blood-glucose meter [Accu-Chek Sabrina Plus Meter] Misc See Rx Instructions .Route Qty: 1 1RF Rx Instructions: As directed (DME) Accu-Chek Sabrina Plus test strp Strip See Rx Instructions .Route Qty: 100 2RF Rx Instructions: As directed (DME) lancets [Accu-Chek Fastclix Lancet Drum] Misc See Rx Instructions .Route Qty: 100 2RF Rx Instructions: As directed Accu-Chek 1 ea subcut ACS Qty: 1 2RF (DME) blood-glucose meter [Accu-Chek Guide Glucose Meter] Misc See Rx Instructions .Route Qty: 1 1RF Rx Instructions: Three times a day blood sugar check (DME) Accu-Chek Guide test strips Strip See Rx Instructions .Route Qty: 100 2RF Rx Instructions: Three times a day glucose check (DME) pen needle, diabetic 29 gauge x 1/2" needle See Rx Instructions .Route Qty: 100 2RF Rx Instructions: Three times a day torsemide 20 mg tablet 1 tab PO TID 0RF Follow Up Plan Follow up with: Brad Rubio MD [Primary Care Provider] - Patient Disposition: Home, Self-Care Plan of Treatment: Palliative care follow up Prognosis: Serious Rehab Potential: Fair I certify that the patient requires SNF services: No Overall status at discharge: patient is progressing back to baseline Discharge Orders: Discharge Order (Routine); Ordered 12/22/21 Ordered By: Maira Campos
== END 2021-12-22 13:05 | disposition home or self-care (01) | DRG 441 ==
LOC: ED 19:42 → ICU 12-20 04:21 → MEDSUR 12-21 11:55
PROVIDERS: ADMIT Student in an Organized Health Care Education/Training Program; ATTEND Student in an Organized Health Care Education/Training Program